=== PATIENT | female | born 1935 | race Two or more races ===

== ENCOUNTER 2020-11-01 03:42 | Inpatient (IN) | payer MEDICARE, OTHER ==
[~2020-11-01] VITALS: Ht 165.1 cm; Wt 63.5 kg
[2020-11-01] VITALS (10 sets, daily range): BP systolic 96–140; BP diastolic 31–72
[2020-11-01] MEDS ORDERED: FAMOTIDINE20 MG ORAL (03:47)
[2020-11-01] MEDS ORDERED: CRESTOR10 M2 ORAL (03:47)
[2020-11-01] MEDS ORDERED: NITRO0.4 SL (03:47)
[2020-11-01] MEDS ORDERED: ASPIRIN81 MG ORAL (03:47)
--- NOTE | 2020-11-01 03:55 | NUR ---
ED Nurse Note: Patient brought into ED by [facility] RA 13 for hypoglycemia. Per [facility], patient was found cool to touch, diarphoretic and unconscious at home. Patient initial blood sugar was 23 on scene and after being given D10W, her accu check showed blood sugar was 336. Upon ED arrival, patient is awake and alert, she is able to answer all questions but remains drowsy. She is breathing normal and unlabored. IV line on R hand initiated by [facility]. 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 Patient connected to environmental monitoring specialist. Safety measures in place.
--- NOTE | 2020-11-01 03:56 | NUR ---
ED Nurse Note: ERMD bedside. He is aware of patient BP and HR.
[2020-11-01] MEDS: D5NS 1,000 ML IV SCH ×2 (04:07→16:45)
--- NOTE | 2020-11-01 04:14 | Emergency Room Report ---
History of Present Illness General Chief Complaint: Abnormal Labs Source: Patient, Medical Record, EMS (Sivakumar Mata MD) Present Illness HPI 85-year-old female presents for low blood sugar. Brought in by EMS from home. Noted to have low O2 confused. Accu-Chek low. Given D50. Accu-Chek improved. Patient still appears somewhat confused. But mental status improved per EMS. No reported fevers or chills. No chest pain or shortness of breath. No other aggravating relieving factors. Denies any other associated symptoms (Sivakumar Mata MD) Allergies: Coded Allergies: No Known Allergies (Unverified , 11/02/20) COVID-19 Screening Contact w/high risk pt: No Experienced COVID-19 symptoms?: No COVID-19 Testing performed DIGITAL SALES DIRECTOR: No (Sivakumar Mata MD) Patient History Past Medical History: DM, HTN, renal disease, dialysis Past Surgical History: none Pertinent Family History: none Social History: Denies: smoking, alcohol use, drug use Now: No Immunizations: UTD Reviewed Nursing Documentation: PMH: Agreed; PSxH: Agreed (Sivakumar Mata MD) Nursing Documentation-PMH Past Medical History: No History, Except For Hx Hypertension: Yes Hx Diabetes: Yes Hx Dialysis: Yes - RENAL FAILURE (Sivakumar Mata MD) Review of Systems All Other Systems: negative except mentioned in HPI (Sivakumar Mata MD) Physical Exam Vital Signs Date Time Temp Pulse Resp B/P (MAP) Pulse Ox O2 Delivery O2 Flow Rate FiO2 11/01/20 03:43 98.6 60 20 112/43 (66) 99 Room Air Sp02 EP Interpretation: reviewed, normal General Appearance: no apparent distress, alert, GCS 15, non-toxic Head: normocephalic, atraumatic Eyes: bilateral eye normal inspection, bilateral eye PERRL ENT: hearing grossly normal, normal pharynx, no angioedema, normal voice Neck: full range of motion, supple/symm/no masses Respiratory: chest non-tender, lungs clear, normal breath sounds, speaking full sentences Cardiovascular #1: regular rate, rhythm, no edema Cardiovascular #2: 2+ carotid (R), 2+ carotid (L), 2+ radial (R), 2+ radial (L), 2+ dorsalis pedis (R), 2+ dorsalis pedis (L) Gastrointestinal: normal bowel sounds, non tender, soft, non-distended, no guarding, no rebound Rectal: deferred Genitourinary: normal inspection, no CVA tenderness Musculoskeletal: back normal, normal range of motion, gait/station normal, non- tender Neurologic: alert, motor strength/tone normal, oriented x3, sensory intact, responsive, speech normal Psychiatric: judgement/insight normal, memory normal, mood/affect normal, no suicidal/homicidal ideation Reflexes: 3+ bicep (R), 3+ bicep (L), 3+ tricep (R), 3+ tricep (L), 3+ knee (R), 3+ knee (L) Skin: other - see nursing notes Lymphatic: no adenopathy (Sivakumar Mata MD) Medical Decision Making Diagnostic Impression: Primary Impression: Hypoglycemia Additional Impressions: ESRD (end stage renal disease) on dialysis Acute encephalopathy NSTEMI (non-ST elevated myocardial infarction) ER Course Assumed care of the patient from the previous provider at approximately 0600. Please refer to initial note for full history and physical exam. Briefly, 85-year-old female history of ESRD presents for acute hypoglycemia improved after receiving glucose. Troponin elevated. Patient received aspirin. Sided effusion right-sided effusion. Possible underlying infiltrate patient received antibiotics. Accepted for admission to [facility]. Laboratory Tests Test 11/01/20 04:04 11/01/20 04:44 11/01/20 04:47 11/01/20 06:34 White Blood Count 11.0 K/UL (4.8-10.8) H Red Blood Count 2.46 M/UL (4.20-5.40) L Hemoglobin 7.5 G/DL (12.0-16.0) L Hematocrit 22.0 % (37.0-47.0) L Mean Corpuscular Volume 89 FL (80-99) Mean Corpuscular Hemoglobin 30.7 PG (27.0-31.0) Mean Corpuscular Hemoglobin Concent 34.3 G/DL (32.0-36.0) Red Cell Distribution Width 16.4 % (11.6-14.8) H Platelet Count 418 K/UL (150-450) Mean Platelet Volume 7.0 FL (6.5-10.1) Neutrophils (%) (Auto) % (45.0-75.0) Lymphocytes (%) (Auto) % (20.0-45.0) Monocytes (%) (Auto) % (1.0-10.0) Eosinophils (%) (Auto) % (0.0-3.0) Basophils (%) (Auto) % (0.0-2.0) Sodium Level 135 MMOL/L (136-145) L Potassium Level 3.9 MMOL/L (3.5-5.1) Chloride Level 96 MMOL/L (98-107) L Carbon Dioxide Level 31 MMOL/L (21-32) Anion Gap 8 mmol/L (5-15) Blood Urea Nitrogen 60 mg/dL (7-18) H Creatinine 6.6 MG/DL (0.55-1.30) H Estimated Glomerular Filtration Rate 6.0 mL/min (>60) Glucose Level 134 MG/DL (74-106) H Calcium Level 8.6 MG/DL (8.5-10.1) Total Bilirubin 0.3 MG/DL (0.2-1.0) Aspartate Amino Transferase (AST) 23 U/L (15-37) Alanine Aminotransferase (ALT) 12 U/L (12-78) Alkaline Phosphatase 183 U/L (46-116) H Troponin I 0.631 ng/mL (0.000-0.056) Pro-B-Type Natriuretic Peptide Pending Total Protein 6.9 G/DL (6.4-8.2) Albumin 2.2 G/DL (3.4-5.0) L Globulin 4.7 g/dL Albumin/Globulin Ratio 0.5 (1.0-2.7) L Urine Color Pale yellow Urine Appearance Cloudy Urine pH 5 (4.5-8.0) Urine Specific [place] 1.020 (1.005-1.035) Urine Protein 2+ (NEGATIVE) H Urine Glucose (UA) 3+ (NEGATIVE) H Urine Ketones Negative (NEGATIVE) Urine Blood 3+ (NEGATIVE) H Urine Nitrite Positive (NEGATIVE) H Urine Bilirubin Negative (NEGATIVE) Urine Urobilinogen Normal MG/DL (0.0-1.0) Urine Leukocyte Esterase 2+ (NEGATIVE) H Urine RBC 10-15 /HPF (0 - 2) H Urine WBC 15-20 /HPF (0 - 2) H Urine Squamous Epithelial Cells Many /LPF (NONE/OCC) H Urine Bacteria Many /HPF (NONE) H Prothrombin Time 13.0 SEC (9.30-11.50) H Prothrombin Time INR 1.2 (0.9-1.1) H Activated Partial Thromboplast Time 36 SEC (23-33) H Lactic Acid Level 0.60 mmol/L (0.4-2.0) (Carlos Velazco MD) ER Course Presents with acute encephalopathy secondary to hypoglycemia. She has been boarding in the ER for over 24 hours. Her hypoglycemia resolved. Her troponin is now positive. She has no chest pain. EKG without any ST elevation. Patient received aspirin and low dose Lovenox here. (Flo Yusuf MD) ER Course 11/02 - Accucheck = 53. On D5NS at 50 ml/hr. Also has h/o renal failure. Given orange juice and also switched to D10W at 50 ml/hr. 700 Final accucheck on admission and D10W = 103. (Tab Cunha MD) EKG Diagnostic Results Troponin ordered: Yes Rate: bradycardiac Rhythm: NSR ST Segments: other - RBBB (Sivakumar Mata MD) Rhythm Strip Diag. Results EP Interpretation: yes Rhythm: no PVC's, no ectopy (Sivakumar Mata MD) EP Interpretation: yes Rhythm: NSR, no PVC's, no ectopy (Tab Cunha MD) CT/MRI/US Diagnostic Results CT/MRI/US Diagnostic Results : Impression IMPRESSION: No acute intracranial hemorrhage, midline shift, or mass effect. Dictated By: Gabe Mendoza M.D. Electronically Signed By:Gabe Mendoza M.D. Signed Date/Time 11/01/20 0555 (Carlos Velazco MD) Last Vital Signs Date Time Temp Pulse Resp B/P (MAP) Pulse Ox O2 Delivery O2 Flow Rate FiO2 11/01/20 04:09 49 15 Room Air 11/01/20 03:55 98.6 96/31 97 (Sivakumar Mata MD) Status: improved (Flo Yusuf MD) Last Vital Signs Date Time Temp Pulse Resp B/P (MAP) Pulse Ox O2 Delivery O2 Flow Rate FiO2 11/02/20 16:00 97.7 75 20 141/51 (81) 97 11/02/20 09:30 Nasal Cannula 2.0 Status: improved (Tab Cunha MD) Disposition: ADMITTED INPATIENT Condition: Serious Referrals: NOT CHOSEN IPA/,REFERRING (PCP) Sivakumar Mata MD Nov 01, 2020 04:14 Carlos Velazco MD Nov 01, 2020 08:06 Flo Yusuf MD Nov 02, 2020 05:43 Tab Cunha MD Nov 02, 2020 07:04
[2020-11-01 04:20] LABS: HEMOGLOBIN 7.5 G/DL (12.0-16.0); MEAN CORPUSCULAR VOLUME 89 FL (80-99); PLATELET COUNT 418 K/UL (150-450); RED BLOOD COUNT 2.46 M/UL (4.20-5.40); RED CELL DISTRIBUTION WIDTH 16.4 % (11.6-14.8)
[2020-11-01 04:27] LABS: CALCIUM 8.6 MG/DL (8.5-10.1); CREATININE 6.6 MG/DL (0.55-1.30); POTASSIUM 3.9 MMOL/L (3.5-5.1)
--- NOTE | 2020-11-01 04:27 | NUR ---
ED Nurse Note: urine collected and sent to lab
--- NOTE | 2020-11-01 04:30 | NUR ---
ED Nurse Note: technician assistant at bedside performing CXR.
[2020-11-01 04:33] LABS: ALBUMIN 2.2 G/DL (3.4-5.0); ALBUMIN/GLOBULIN RATIO 0.5 (1.0-2.7); BILIRUBIN,TOTAL 0.3 MG/DL (0.2-1.0)
--- NOTE | 2020-11-01 04:50 | NUR ---
ED Nurse Note: Patient remains drowsy but is easily arousable and will answer questions.
[2020-11-01 04:51] LABS: APPEARANCE,URINE CLOUDY; BILIRUBIN, URINE NEGATIVE (NEGATIVE); GLUCOSE, URINE (UA) 3+ (NEGATIVE); KETONES,URINE NEGATIVE (NEGATIVE); LEUKOCYTE ESTERASE ,URINE 2+ (NEGATIVE); NITRITE,URINE POSITIVE (NEGATIVE); PH,URINE 5 (4.5-8.0); PROTEIN,URINE 2+ (NEGATIVE); UROBILINOGEN,URINE NORMAL MG/DL (0.0-1.0)
[2020-11-01 04:55] LABS: COLOR,URINE PALE YELLOW
--- NOTE | 2020-11-01 05:02 | Diagnostic Imaging Report ---
EXAM: XR Chest, 1 View CLINICAL HISTORY: DIZZY TECHNIQUE: Frontal view of the chest. COMPARISON: No relevant prior studies available. FINDINGS/IMPRESSION: Moderate right pleural effusion with moderate vascular congestion, which asymmetrically involves the right lung. Underlying infiltrate not excluded. Follow 2 view chest radiograph recommended. No pneumothorax. Trace left pleural effusion. Severe cardiomegaly. Calcified aorta. Calcified tracheobronchial tree.
--- NOTE | 2020-11-01 05:56 | Diagnostic Imaging Report ---
EXAM: CT Head Without Intravenous Contrast CLINICAL HISTORY: AMS TECHNIQUE: Axial computed tomography images of the head/brain without intravenous contrast. CTDI is 53.40 mGy and DLP is 1072.20 mGy-cm. One or more of the following dose reduction techniques were used: automated exposure control, adjustment of the mA and/or kV according to patient size, use of iterative reconstruction technique. COMPARISON: No relevant prior studies available. FINDINGS: No acute intracranial hemorrhage. No midline shift or mass effect. The territorial lemos-white matter differentiation is maintained throughout. Age-related cerebral volume loss. Periventricular and subcortical white matter hypoattenuation, consistent with chronic microangiopathy. The visualized orbits appear grossly unremarkable. The calvarium is intact. The visualized paranasal sinuses and mastoid air cells are grossly clear. IMPRESSION: No acute intracranial hemorrhage, midline shift, or mass effect.
--- NOTE | 2020-11-01 06:22 | NUR ---
ED Nurse Note: Patient is awake and alert, see vital signs flow sheet. No acute distress at this time. ERMD is aware of patient HR, no change in condition.
[2020-11-01 06:30] LABS: INR 1.2 (0.9-1.1)
--- NOTE | 2020-11-01 07:14 | NUR ---
HAND-OFF: Report given to ARTURO Kerns.
--- NOTE | 2020-11-01 07:30 | NUR ---
ED Nurse Note: received report from saba portillo. patient is resting comfortably, nad noted, bs 103, hr 50, bp 101/64, other vss, levaquin 750mg running at 100ml/hr and d5ns running at 100ml/hr. swabbed for mrsa/cre/vre and sent to lab. awaiting blood transfusion.
--- NOTE | 2020-11-01 07:57 | NUR ---
ED Nurse Note: started blood transfusion 1 unit per md order. temperature 91.2 rectal, initiated barbara hugger. hr 51, other vss. will monitor closely for adverse reaction.
[2020-11-01] MEDS ORDERED: cefTRIAXone 1 GM in NS 55 ML IVPB SCH (09:00)
--- NOTE | 2020-11-01 09:14 | Consultation ---
History of Present Illness General Chief Complaint: Abnormal Labs Reason for Consultation: ESRD on HD Present Illness HPI 85F with PMhx of ESRD and Insulin dependent DM2 was biba after being found unresponsive. Per EMS report and history of patient - she was found in the field cool, diaphoretic and with a BG of 23 in the field where she was given D10W. Following her accucheck in the field was found to be 336. At bedside patient is alert following glucose gtt. She states that she had dialysis on Sunday and was feeling weak after dialysis. On Sunday all day she rested in bed and had not eaten very much. She says that she took the assistance of her family to administer insulin and administered 10U of long acting insulin. Unclear of what dose of insulin patient takes at home. Allergies: Coded Allergies: No Known Allergies (Unverified , 11/02/20) Medication History Scheduled Aspirin* (Aspirin*), Unknown Dose ORAL DAILY, (Reported) Famotidine* (Pepcid 20mg tablet*), 20 MG ORAL DAILY, (Reported) Rosuvastatin Calcium* (Crestor*), Unknown Dose ORAL DAILY, (Reported) Scheduled PRN Nitroglycerin 0.4MG table* (Nitroglycerin*), 0.4 MG SL .Q5MIN X 3 DOSES PRN for CHEST PAIN, (Reported) Patient History Healthcare decision maker Resuscitation status Advanced Directive on File Review of Systems All Other Systems: negative except mentioned in HPI Physical Exam General Appearance: no apparent distress Lines, tubes and drains: peripheral HEENT: normocephalic Neck: non-tender, normal alignment Respiratory/Chest: chest wall non-tender, lungs clear Cardiovascular/Chest: normal peripheral pulses, normal rate, regular rhythm Abdomen: normal bowel sounds, non tender Extremities: normal range of motion, non-tender Neurologic: alert, oriented x 3 Last 24 Hour Vital Signs Date Time Temp Pulse Resp B/P (MAP) Pulse Ox O2 Delivery O2 Flow Rate FiO2 11/01/20 08:38 92.0 50 17 118/50 97 Room Air 11/01/20 08:12 92.0 50 17 11/01/20 07:57 91.2 51 18 11/01/20 06:22 98.8 59 16 98/55 97 Room Air 11/01/20 04:30 98.6 46 16 101/42 98 Room Air 11/01/20 04:09 49 15 Room Air 11/01/20 03:55 98.6 49 15 96/31 97 Room Air 11/01/20 03:43 98.6 60 20 112/43 (66) 99 Room Air Laboratory Tests Test 11/01/20 04:04 11/01/20 04:44 11/01/20 04:47 11/01/20 06:34 White Blood Count 11.0 K/UL (4.8-10.8) H Red Blood Count 2.46 M/UL (4.20-5.40) L Hemoglobin 7.5 G/DL (12.0-16.0) L Hematocrit 22.0 % (37.0-47.0) L Mean Corpuscular Volume 89 FL (80-99) Mean Corpuscular Hemoglobin 30.7 PG (27.0-31.0) Mean Corpuscular Hemoglobin Concent 34.3 G/DL (32.0-36.0) Red Cell Distribution Width 16.4 % (11.6-14.8) H Platelet Count 418 K/UL (150-450) Mean Platelet Volume 7.0 FL (6.5-10.1) Neutrophils (%) (Auto) % (45.0-75.0) Lymphocytes (%) (Auto) % (20.0-45.0) Monocytes (%) (Auto) % (1.0-10.0) Eosinophils (%) (Auto) % (0.0-3.0) Basophils (%) (Auto) % (0.0-2.0) Sodium Level 135 MMOL/L (136-145) L Potassium Level 3.9 MMOL/L (3.5-5.1) Chloride Level 96 MMOL/L (98-107) L Carbon Dioxide Level 31 MMOL/L (21-32) Anion Gap 8 mmol/L (5-15) Blood Urea Nitrogen 60 mg/dL (7-18) H Creatinine 6.6 MG/DL (0.55-1.30) H Estimat Glomerular Filtration Rate 6.0 mL/min (>60) Glucose Level 134 MG/DL (74-106) H Calcium Level 8.6 MG/DL (8.5-10.1) Total Bilirubin 0.3 MG/DL (0.2-1.0) Aspartate Amino Transf (AST/SGOT) 23 U/L (15-37) Alanine Aminotransferase (ALT/SGPT) 12 U/L (12-78) Alkaline Phosphatase 183 U/L (46-116) H Troponin I 0.631 ng/mL (0.000-0.056) Pro-B-Type Natriuretic Peptide Pending Total Protein 6.9 G/DL (6.4-8.2) Albumin 2.2 G/DL (3.4-5.0) L Globulin 4.7 g/dL Albumin/Globulin Ratio 0.5 (1.0-2.7) L Urine Color Pale yellow Urine Appearance Cloudy Urine pH 5 (4.5-8.0) Urine Specific [place] 1.020 (1.005-1.035) Urine Protein 2+ (NEGATIVE) H Urine Glucose (UA) 3+ (NEGATIVE) H Urine Ketones Negative (NEGATIVE) Urine Blood 3+ (NEGATIVE) H Urine Nitrite Positive (NEGATIVE) H Urine Bilirubin Negative (NEGATIVE) Urine Urobilinogen Normal MG/DL (0.0-1.0) Urine Leukocyte Esterase 2+ (NEGATIVE) H Urine RBC 10-15 /HPF (0 - 2) H Urine WBC 15-20 /HPF (0 - 2) H Urine Squamous Epithelial Cells Many /LPF (NONE/OCC) H Urine Bacteria Many /HPF (NONE) H Prothrombin Time 13.0 SEC (9.30-11.50) H Prothromb Time International Ratio 1.2 (0.9-1.1) H Activated Partial Thromboplast Time 36 SEC (23-33) H Lactic Acid Level 0.60 mmol/L (0.4-2.0) Microbiology Date/Time Source Procedure Growth Status 11/01/20 07:12 Rectum Received Height (Feet): 5 Height (Inches): 5.00 Weight (Pounds): 140 Medications Current Medications Medications (Trade) Dose Ordered Sig/Scooter Route PRN Reason Start Time Stop Time Status Last Admin Dose Admin Ceftriaxone Sodium 1 gm/ Sodium Chloride 55 ml @ 110 mls/hr DAILY IVPB 11/01/20 09:00 11/08/20 08:59 Dextrose (Dextrose 50%) 25 ml Q30M PRN IV Hypoglycemia 11/01/20 07:00 01/30/21 06:59 Dextrose (Dextrose 50%) 50 ml Q30M PRN IV Hypoglycemia 11/01/20 07:00 01/30/21 06:59 Dextrose/Sodium Chloride 1,000 ml @ 100 mls/hr Q10H IV 11/01/20 04:00 12/01/20 03:59 11/01/20 04:07 Insulin Aspart (NovoLOG) BEFORE MEALS AND HS SUBQ 11/01/20 11:30 01/30/21 11:29 Assessment/Plan Diagnosis [place] I: #ESRD on HD- TTHS- #Hypoglycemia #DM #Anemia #HTN HLD - HD tomorrow - continue D5 drip - monitor for volume overload - check iron panel - check ferritin - check PTH - vitamin D - monitor hemoglobin - amlodipine 5mg daily time spent 70 min Belinda Fraire M.D. Nov 01, 2020 09:14
--- NOTE | 2020-11-01 09:30 | NUR ---
ED Nurse Note: transfused 1 unit of prbc per md order. pt tolerated well, no adverse reaction noted.
[2020-11-01] MEDS: NovoLOG Insulin Flexpen SUBQ SCH ×3 (11:04→20:52)
--- NOTE | 2020-11-01 11:12 | NUR ---
ED Nurse Note: received novolog from pharmacy but did not administer due to bs being within normal range. bs 112.
--- NOTE | 2020-11-01 13:06 | NUR ---
ED Nurse Note: lunch tray was provided
--- NOTE | 2020-11-01 13:46 | NUR ---
ED Nurse Note: bs 88. temp 98.2 rectal.
--- NOTE | 2020-11-01 17:58 | History and Physical ---
History of Present Illness General Date patient seen: Nov 01, 2020 Time patient seen: 09:45 Reason for Hospitalization: Abnormal Labs Present Illness Allergies: Coded Allergies: UNABLE TO ASSESS (Unverified , 11/01/20) COVID-19 Screening Contact w/high risk pt: No Experienced COVID-19 symptoms?: No Medication History Scheduled Aspirin* (Aspirin*), Unknown Dose ORAL DAILY, (Reported) Famotidine* (Pepcid 20mg tablet*), 20 MG ORAL DAILY, (Reported) Rosuvastatin Calcium* (Crestor*), Unknown Dose ORAL DAILY, (Reported) Scheduled PRN Nitroglycerin 0.4MG table* (Nitroglycerin*), 0.4 MG SL .Q5MIN X 3 DOSES PRN for CHEST PAIN, (Reported) Patient History History Provided By: Patient, EMS Healthcare decision maker Resuscitation status Advanced Directive on File Patient History Narrative 85F with PMhx of ESRD and Insulin dependent DM2 was biba after being found unresponsive. Per EMS report and history of patient - she was found in the field cool, diaphoretic and with a BG of 23 in the field where she was given D10W. Following her accucheck in the field was found to be 336. At bedside patient is alert following glucose gtt. She states that she had dialysis on Sunday and was feeling weak after dialysis. On Sunday all day she rested in bed and had not eaten very much. She says that she took the assistance of her family to administer insulin and administered 10U of long acting insulin. Unclear of what dose of insulin patient takes at home. She lives with her sister (Puja) - attempted to called 2x however unable to leave voicemail as line is busy. Review of Systems Constitutional: Denies: no symptoms, see HPI, chills, sweats, fever, malaise, weakness, other Eye: Denies: no symptoms, see HPI, eye pain, blurred vision, tearing, double vision, nose pain, nose congestion, acuity changes, discharge, other ENT: Denies: no symptoms, see HPI, ear pain, ear discharge, nose pain, nose congestion, throat pain, throat swelling, mouth pain, hearing loss, nasal discharge, other Respiratory: Denies: no symptoms, see HPI, cough, orthopnea, shortness of breath, stridor, wheezing, LOPEZ, sputum, other Cardiovascular: Denies: no symptoms, see HPI, chest pain, edema, palpitations, syncope, PND, other Gastrointestinal: Denies: no symptoms, see HPI, abdominal pain, constipation, diarrhea, nausea, vomiting, melena, hematemesis, other Genitourinary: Denies: no symptoms, see HPI, discharge, dysuria, frequency, hematuria, pain, retention, incontinence, urgency, vag bleed/dc, other Musculoskeletal: Denies: no symptoms, see HPI, back pain, gout, joint pain, joint swelling, muscle pain, muscle stiffness, other Skin: Denies: no symptoms, see HPI, rash, change in color, change in hair/nails, dryness, lesions, other Psychiatric: Denies: no symptoms, see HPI, prior hx, anxiety, depressed feelings, emotional problems, SI, HI, hallucinations, other Neurological: Denies: no symptoms, see HPI, headache, numbness, paresthesia, seizure, tingling, tremors, focal weakness, syncope, dizziness, other Endocrine: Denies: no symptoms, see HPI, excessive sweating, flushing, intolerance to temperature, increased thirst, increased urine, unexplained weight loss, other Hematologic/Lymphatic: Denies: no symptoms, see HPI, anemia, blood clots, easy bleeding, easy bruising, swollen glands, diathesis, other Physical Exam General Appearance: no apparent distress, alert HEENT: normocephalic, atraumatic Neck: supple Respiratory/Chest: normal breath sounds, no respiratory distress Cardiovascular/Chest: normal rate, regular rhythm Abdomen: non tender, soft Extremities: normal range of motion Skin Exam: warm/dry Neurologic: respiratory assistant II-XII grossly normal, alert Last 24 Hour Vital Signs Date Time Temp Pulse Resp B/P (MAP) Pulse Ox O2 Delivery O2 Flow Rate FiO2 11/01/20 13:47 98.2 62 18 128/52 98 Room Air 11/01/20 10:51 92.6 62 18 122/39 98 Room Air 11/01/20 09:30 92.5 55 18 11/01/20 08:38 92.0 50 17 118/50 97 Room Air 11/01/20 08:12 92.0 50 17 11/01/20 07:57 91.2 51 18 11/01/20 06:22 98.8 59 16 98/55 97 Room Air 11/01/20 04:30 98.6 46 16 101/42 98 Room Air 11/01/20 04:09 49 15 Room Air 11/01/20 03:55 98.6 49 15 96/31 97 Room Air 11/01/20 03:43 98.6 60 20 112/43 (66) 99 Room Air Laboratory Tests Test 11/01/20 04:04 11/01/20 04:44 11/01/20 04:47 11/01/20 06:34 White Blood Count 11.0 K/UL (4.8-10.8) H Red Blood Count 2.46 M/UL (4.20-5.40) L Hemoglobin 7.5 G/DL (12.0-16.0) L Hematocrit 22.0 % (37.0-47.0) L Mean Corpuscular Volume 89 FL (80-99) Mean Corpuscular Hemoglobin 30.7 PG (27.0-31.0) Mean Corpuscular Hemoglobin Concent 34.3 G/DL (32.0-36.0) Red Cell Distribution Width 16.4 % (11.6-14.8) H Platelet Count 418 K/UL (150-450) Mean Platelet Volume 7.0 FL (6.5-10.1) Neutrophils (%) (Auto) % (45.0-75.0) Lymphocytes (%) (Auto) % (20.0-45.0) Monocytes (%) (Auto) % (1.0-10.0) Eosinophils (%) (Auto) % (0.0-3.0) Basophils (%) (Auto) % (0.0-2.0) Sodium Level 135 MMOL/L (136-145) L Potassium Level 3.9 MMOL/L (3.5-5.1) Chloride Level 96 MMOL/L (98-107) L Carbon Dioxide Level 31 MMOL/L (21-32) Anion Gap 8 mmol/L (5-15) Blood Urea Nitrogen 60 mg/dL (7-18) H Creatinine 6.6 MG/DL (0.55-1.30) H Estimat Glomerular Filtration Rate 6.0 mL/min (>60) Glucose Level 134 MG/DL (74-106) H Calcium Level 8.6 MG/DL (8.5-10.1) Total Bilirubin 0.3 MG/DL (0.2-1.0) Aspartate Amino Transf (AST/SGOT) 23 U/L (15-37) Alanine Aminotransferase (ALT/SGPT) 12 U/L (12-78) Alkaline Phosphatase 183 U/L (46-116) H Troponin I 0.631 ng/mL (0.000-0.056) Pro-B-Type Natriuretic Peptide Pending Total Protein 6.9 G/DL (6.4-8.2) Albumin 2.2 G/DL (3.4-5.0) L Globulin 4.7 g/dL Albumin/Globulin Ratio 0.5 (1.0-2.7) L Urine Color Pale yellow Urine Appearance Cloudy Urine pH 5 (4.5-8.0) Urine Specific [place] 1.020 (1.005-1.035) Urine Protein 2+ (NEGATIVE) H Urine Glucose (UA) 3+ (NEGATIVE) H Urine Ketones Negative (NEGATIVE) Urine Blood 3+ (NEGATIVE) H Urine Nitrite Positive (NEGATIVE) H Urine Bilirubin Negative (NEGATIVE) Urine Urobilinogen Normal MG/DL (0.0-1.0) Urine Leukocyte Esterase 2+ (NEGATIVE) H Urine RBC 10-15 /HPF (0 - 2) H Urine WBC 15-20 /HPF (0 - 2) H Urine Squamous Epithelial Cells Many /LPF (NONE/OCC) H Urine Bacteria Many /HPF (NONE) H Prothrombin Time 13.0 SEC (9.30-11.50) H Prothromb Time International Ratio 1.2 (0.9-1.1) H Activated Partial Thromboplast Time 36 SEC (23-33) H Lactic Acid Level 0.60 mmol/L (0.4-2.0) Test 11/01/20 11:03 11/01/20 13:45 POC Whole Blood Glucose 112 MG/DL (74-106) H 88 MG/DL (74-106) Microbiology Date/Time Source Procedure Growth Status 11/01/20 07:12 Rectum Received Height (Feet): 5 Height (Inches): 5.00 Weight (Pounds): 140 Medications Current Medications Medications (Trade) Dose Ordered Sig/Scooter Route PRN Reason Start Time Stop Time Status Last Admin Dose Admin Ceftriaxone Sodium 1 gm/ Sodium Chloride 55 ml @ 110 mls/hr DAILY IVPB 11/01/20 09:00 12/21/20 08:59 11/01/20 09:34 Dextrose (Dextrose 50%) 25 ml Q30M PRN IV Hypoglycemia 11/01/20 07:00 01/30/21 06:59 Dextrose (Dextrose 50%) 50 ml Q30M PRN IV Hypoglycemia 11/01/20 07:00 01/30/21 06:59 Dextrose/Sodium Chloride 1,000 ml @ 100 mls/hr Q10H IV 11/01/20 04:00 12/01/20 03:59 11/01/20 16:45 Insulin Aspart (NovoLOG) BEFORE MEALS AND HS SUBQ 11/01/20 11:30 01/30/21 11:29 Assessment/Plan Status: stable Diagnosis [place] I: #Metabolic Encephalopathy #Hypoglycemia #Hypothermia Patient presented following BG 20s in the field. Now alert and oriented, though unable to state correct insulin dose. - Continued rewarming - Temp 98.2 - CT Brain with no acute intracranial hemorrhage, or midline shift - IVF with D5W to keep BG 150-200 - Continue re-orienting techniques - Repeat cbc, bmp, trop, tsh #Tropinemia - Aspirin in the ED, no active chest pain - EKG - Sinus bradycardia with RBBB - HR improving with rewarming - Repeat troponin pending - BNP pending #Myalgias #UTI #Concern for possible aspiration pna vs. pleural effusion - Correlate w/Repeat CXR 2 in AM - BC x2 - UC with pyuria - Covid pending - Abx - Azithromycin and Zosyn, s/p ceftriaxone in ED - Pulm consult - ID consult - Patient is currently on RA #Insulin Dependent T2DM - Hold insulin for now - ISS - Will need diabetic education #ESRD (//sun) - Nephrology consulted, appreciate recs #HLD - continue crestor Diet - Carb consistent Heparin sq Time spent is 75 minutes with approximately 35 minutes with counseling and care coordination. D/w Consultants and nursing staff. Time of of note does not reflect time of encounter. Trinidad Bella M.D. Nov 01, 2020 17:58
--- NOTE | 2020-11-01 19:08 | NUR ---
HAND-OFF: Report given to saba cervantes.
--- NOTE | 2020-11-01 19:10 | NUR ---
ED Nurse Note: pt aao x 4, resting in bed, VSS no ss of distress noted. Pt able to stand and ambulate short distances with assistance. pt assisted to bedside commode with assistance. will continue monitor.
--- NOTE | 2020-11-01 20:40 | NUR ---
ED Nurse Note: pt bs recheck 66, ermd informed. pt given PO orange juice. awaiting bs recheck.
--- NOTE | 2020-11-01 21:15 | NUR ---
ED Nurse Note: RODRIGO recheck 86. ERMD informed. will continue to monitor.
[2020-11-01] MEDS ORDERED: Piperacillin/Tazobactam 3.375 GM in NS 110 ML IVPB SCH (22:00)
--- NOTE | 2020-11-01 22:13 | General Progress Note ---
Advance Care Planning Advance Care Planning Advance Care Planning [facility] An independent Hospitalist group, where every patient is our [facility] Internal Medicine Hospitalist Advanced Care Planning Note Please contact us at Date of Discussion: A [id number] discussion with the patient regarding the patient's advanced care planning took place during this hospitalization on the above date. The discussion included the explanation and discussion of advance directives and associated forms/documents, as well as the patient's current code status. We also discussed at length the patient's medical conditions (both acute and chroni c), general prognosis, treatment options, and goals of care. The following summarizes the discussion: Patient states that she would want CPR, Electric shocks, and intubation with mechanical ventilation. Advance Care Planning/Goals of Care: - Will attempt to fill out an AD and/or POLST with the patient prior to discharge, if not already completed - Continue current evaluation and management of any acute and chronic medical issues - Will continue to support the patient/family - Will continue to discuss both short- and long-term goals of care DPOA-HC/Surrogate Decision Maker: Cecy (cousin) [phone] Code Status: Full Code Advanced Care Planning Forms/Documents Completed: Deferred until later encounter/visit A total of 18 minutes was spent on this discussion, including counseling, answering questions, and completing, if any, pertinent advanced care planning forms/documents. Time of note may not reflect time of encounter. Trinidad Bella M.D. Nov 01, 2020 22:13
--- NOTE | 2020-11-01 23:34 | NUR ---
ED Nurse Note: pt resting in bed, vss no ss of distress noted. will continue to monitor.
[2020-11-02] VITALS (8 sets, daily range): BP systolic 136–172; BP diastolic 36–67
[2020-11-02 00:06] LABS: BASOPHILS % (AUTO) 1.5 % (0.0-2.0); EOSINOPHILS % (AUTO) 1.2 % (0.0-3.0); HEMATOCRIT 25.3 % (37.0-47.0); HEMOGLOBIN 8.6 G/DL (12.0-16.0); LYMPHOCYTES % (AUTO) 8.5 % (20.0-45.0); MEAN CORPUSCULAR VOLUME 89 FL (80-99); NEUTROPHILS % (AUTO) 79.9 % (45.0-75.0); PLATELET COUNT 417 K/UL (150-450); RED BLOOD COUNT 2.83 M/UL (4.20-5.40); RED CELL DISTRIBUTION WIDTH 16.7 % (11.6-14.8); WHITE BLOOD COUNT 9.2 K/UL (4.8-10.8)
[2020-11-02 00:20] LABS: CALCIUM 8.3 MG/DL (8.5-10.1); CREATININE 7.3 MG/DL (0.55-1.30); POTASSIUM 4.7 MMOL/L (3.5-5.1)
--- NOTE | 2020-11-02 02:10 | NUR ---
ED Nurse Note: BS recheck 156; ermd notified. IV fluids held at this time. will continue to monitor.
[2020-11-02] MEDS ORDERED: Enoxaparin 60mg Inj SUBQ ONE (02:30)
--- NOTE | 2020-11-02 04:40 | NUR ---
ED Nurse Note: pt resting in bed, vss no ss of distress noted. will continue to monitor.
--- NOTE | 2020-11-02 05:00 | NUR ---
ED Nurse Note: AM labs drawn and sent to lab. BS recheck: 101, ermd notified. will continue to monitor.
[2020-11-02] MEDS: D5NS 1,000 ML IV SCH (05:36)
--- NOTE | 2020-11-02 05:36 | NUR ---
ED Nurse Note: iv fluids initiated, pt tolerated well no ss of distress noted. will continue to monitor.
[2020-11-02 05:40] LABS: BASOPHILS % (AUTO) 0.9 % (0.0-2.0); EOSINOPHILS % (AUTO) 0.4 % (0.0-3.0); HEMATOCRIT 28.6 % (37.0-47.0); HEMOGLOBIN 9.5 G/DL (12.0-16.0); LYMPHOCYTES % (AUTO) 8.1 % (20.0-45.0); MEAN CORPUSCULAR VOLUME 91 FL (80-99); MONOCYTES % (AUTO) 9.5 % (1.0-10.0); NEUTROPHILS % (AUTO) 81.2 % (45.0-75.0); PLATELET COUNT 444 K/UL (150-450); RED BLOOD COUNT 3.15 M/UL (4.20-5.40); RED CELL DISTRIBUTION WIDTH 15.4 % (11.6-14.8); WHITE BLOOD COUNT 10.2 K/UL (4.8-10.8)
[2020-11-02 06:10] LABS: CALCIUM 8.4 MG/DL (8.5-10.1); CREATININE 7.7 MG/DL (0.55-1.30); POTASSIUM 4.8 MMOL/L (3.5-5.1)
[2020-11-02 06:26] LABS: FERRITIN > 2000 NG/ML (8-388); PHOSPHORUS 3.9 MG/DL (2.5-4.9)
[2020-11-02] MEDS: NovoLOG Insulin Flexpen SUBQ SCH ×4 (06:30→21:39)
[2020-11-02 06:38] LABS: % IRON SATURATION 21 % (15-50); IRON 37 ug/dL (50-175); TOTAL IRON BINDING CAPACITY 175 ug/dL (250-450)
--- NOTE | 2020-11-02 06:50 | NUR ---
ED Nurse Note: pt BS recheck: 56. medication held, ermd notified. awaiting further orders. pt given 8mls of orange juice PO, tolerated well. no ss of distress noted. will continue to monitor.
[2020-11-02] MEDS ORDERED: Dextrose 10% 1,000 ML IV SCH (07:00)
--- NOTE | 2020-11-02 07:25 | NUR ---
ED Nurse Note: Patient taken down for CXR via gurney in stable condition.
--- NOTE | 2020-11-02 07:26 | NUR ---
HAND-OFF: Report given to saba felipe.
--- NOTE | 2020-11-02 08:00 | NUR ---
ED Nurse Note: Patient came back from CT in stable condition.
--- NOTE | 2020-11-02 08:48 | NUR ---
ED Nurse Note: Reporty given to Christiane MORRIS of telemetry unit.
--- NOTE | 2020-11-02 09:00 | NUR ---
ED Nurse Note: Patient transferred to telemetry unit with all her belongings including insulin pen. Pt with ongoing drip of D10 running at 50ml per hour and endorsed to receiving RN Christiane MORRIS.
[2020-11-02] MEDS: Azithromycin 250mg tab ORAL SCH (09:51)
--- NOTE | 2020-11-02 11:55 | Infectious Diseases Prog Note ---
Assessment/Plan Assessment/Plan Full consult dictated: A) 1) uti 2) possible pna 3) rule out covid P) 1) zosyn 2) f/u on cultures, covid testing, labs and chest x-ray 3) thank you Subjective Allergies: Coded Allergies: UNABLE TO ASSESS (Unverified , 11/01/20) Objective Last 24 Hour Vital Signs Date Time Temp Pulse Resp B/P (MAP) Pulse Ox O2 Delivery O2 Flow Rate FiO2 11/02/20 09:51 67 172/61 11/02/20 09:39 68 11/02/20 09:15 98.1 75 20 172/61 (98) 98 11/02/20 09:00 98.2 82 17 142/65 100 Nasal Cannula 2.0 11/02/20 08:08 98.5 75 20 150/47 98 Nasal Cannula 2.0 11/02/20 05:00 98.2 73 16 148/51 98 Nasal Cannula 2.0 11/02/20 03:30 98.2 66 16 145/39 98 Nasal Cannula 2.0 11/02/20 01:30 98.2 74 16 138/36 98 Nasal Cannula 2.0 11/01/20 23:26 98.2 64 16 140/68 98 Nasal Cannula 2.0 11/01/20 21:30 98.2 68 18 137/72 98 Room Air 11/01/20 19:20 98.2 72 16 137/64 98 Nasal Cannula 2.0 11/01/20 17:11 98.2 65 18 127/52 98 Room Air 11/01/20 13:47 98.2 62 18 128/52 98 Room Air Height (Feet): 5 Height (Inches): 5.00 Weight (Pounds): 140 Microbiology Date/Time Source Procedure Growth Status 11/01/20 07:12 Rectum Received 11/01/20 04:44 Urine,Clean Catch Urine Culture - Preliminary NO GROWTH Resulted Laboratory Tests Test 11/01/20 13:45 11/01/20 19:01 11/02/20 00:01 11/02/20 05:00 POC Whole Blood Glucose 88 MG/DL (74-106) 87 MG/DL (74-106) White Blood Count 9.2 K/UL (4.8-10.8) 10.2 K/UL (4.8-10.8) Red Blood Count 2.83 M/UL (4.20-5.40) L 3.15 M/UL (4.20-5.40) L Hemoglobin 8.6 G/DL (12.0-16.0) L 9.5 G/DL (12.0-16.0) L Hematocrit 25.3 % (37.0-47.0) L 28.6 % (37.0-47.0) L Mean Corpuscular Volume 89 FL (80-99) 91 FL (80-99) Mean Corpuscular Hemoglobin 30.4 PG (27.0-31.0) 30.3 PG (27.0-31.0) Mean Corpuscular Hemoglobin Concent 34.0 G/DL (32.0-36.0) 33.3 G/DL (32.0-36.0) Red Cell Distribution Width 16.7 % (11.6-14.8) H 15.4 % (11.6-14.8) H Platelet Count 417 K/UL (150-450) 444 K/UL (150-450) Mean Platelet Volume 6.8 FL (6.5-10.1) 6.6 FL (6.5-10.1) Neutrophils (%) (Auto) 79.9 % (45.0-75.0) H 81.2 % (45.0-75.0) H Lymphocytes (%) (Auto) 8.5 % (20.0-45.0) L 8.1 % (20.0-45.0) L Monocytes (%) (Auto) 9.0 % (1.0-10.0) 9.5 % (1.0-10.0) Eosinophils (%) (Auto) 1.2 % (0.0-3.0) 0.4 % (0.0-3.0) Basophils (%) (Auto) 1.5 % (0.0-2.0) 0.9 % (0.0-2.0) Sodium Level 137 MMOL/L (136-145) Potassium Level 4.8 MMOL/L (3.5-5.1) Chloride Level 98 MMOL/L (98-107) Carbon Dioxide Level 27 MMOL/L (21-32) Anion Gap 12 mmol/L (5-15) Blood Urea Nitrogen 74 mg/dL (7-18) H Creatinine 7.7 MG/DL (0.55-1.30) H Estimat Glomerular Filtration Rate 5.0 mL/min (>60) Glucose Level 75 MG/DL (74-106) Calcium Level 8.4 MG/DL (8.5-10.1) L Calcium (Send out) Pending Phosphorus Level 3.9 MG/DL (2.5-4.9) Magnesium Level 2.1 MG/DL (1.8-2.4) Iron Level 37 ug/dL (50-175) L Total Iron Binding Capacity 175 ug/dL (250-450) L Percent Iron Saturation 21 % (15-50) Unsaturated Iron Binding 138 ug/dL (112-346) Ferritin > 2000 NG/ML (8-388) H Troponin I 0.322 ng/mL (0.000-0.056) Vitamin D 25-Hydroxy Pending 25-Hydroxy Vitamin D2 Pending 25-Hydroxy Vitamin D3 Pending Parathyroid Hormone (Intact) Pending Test 11/02/20 08:07 POC Whole Blood Glucose 102 MG/DL (74-106) Current Medications Medications (Trade) Dose Ordered Sig/Scooter Route PRN Reason Start Time Stop Time Status Last Admin Dose Admin Amlodipine Besylate (Norvasc) 5 mg DAILY ORAL 11/02/20 09:00 12/02/20 08:59 11/02/20 09:51 Azithromycin (Zithromax) 500 mg DAILY ORAL 11/02/20 09:00 11/07/20 10:50 11/02/20 09:51 Dextrose 1,000 ml @ 50 mls/hr Q20H IV 11/02/20 07:00 12/02/20 06:59 11/02/20 08:01 Dextrose (Dextrose 50%) 25 ml Q30M PRN IV Hypoglycemia 11/01/20 07:00 01/30/21 06:59 Dextrose (Dextrose 50%) 50 ml Q30M PRN IV Hypoglycemia 11/01/20 07:00 01/30/21 06:59 Insulin Aspart (NovoLOG) BEFORE MEALS AND HS SUBQ 11/01/20 11:30 01/30/21 11:29 Piperacillin Sod/ Tazobactam Sod 2.25 gm/Sodium Chloride 110 ml @ 220 mls/hr Q8HR IVPB 11/02/20 14:00 11/09/20 13:59 Eliu Cortez MD Nov 02, 2020 11:55
[2020-11-02] MEDS ORDERED: Milk of Magnesia 30ml Ud ORAL PRN (12:15)
--- NOTE | 2020-11-02 13:14 | Consultation ---
History of Present Illness General Date patient seen: Nov 02, 2020 Reason for Hospitalization: Abnormal Labs Present Illness HPI This is a very pleasant 85-year-old female who is a diabetic that was brought in from home found semiunresponsive admitted further care and management blood glucose severely low. Patient identified to have abdominal distention surgery called to evaluate assist with care. Patient seen, patient by, chart reviewed. Patient is more awake and alert now and responsive. States she feels well. No nausea vomiting. Mild discomfort abdominal but no pain. Passing flatus. No prior abdominal surgeries. Is unaware of what recent transpired events have been. Allergies: Coded Allergies: UNABLE TO ASSESS (Unverified , 11/01/20) COVID-19 Screening Contact w/high risk pt: No Experienced COVID-19 symptoms?: No Medication History Scheduled Aspirin* (Aspirin*), Unknown Dose ORAL DAILY, (Reported) Famotidine* (Pepcid 20mg tablet*), 20 MG ORAL DAILY, (Reported) Rosuvastatin Calcium* (Crestor*), Unknown Dose ORAL DAILY, (Reported) Scheduled PRN Nitroglycerin 0.4MG table* (Nitroglycerin*), 0.4 MG SL .Q5MIN X 3 DOSES PRN for CHEST PAIN, (Reported) Patient History Limited by: medical condition History Provided By: Patient, Medical Record, PMD Healthcare decision maker Resuscitation status Advanced Directive on File Past Medical/Surgical History Past Medical/Surgical History: (1) Abdominal distension (2) NSTEMI (non-ST elevated myocardial infarction) (3) Acute encephalopathy (4) ESRD (end stage renal disease) on dialysis (5) Hypoglycemia Review of Systems Review of Symptoms General ROS: no weight loss or fever Psychological ROS: no depression or mood changes, no memory loss Ophthalmic ROS: no visual changes or eye irritation ENT ROS: no nasal congestion, hearing loss, dizziness Allergy and Immunology ROS: no allergic symptoms or urticaria Hematological and Lymphatic ROS: no swollen glands, unusual bleeding or bruising Endocrine ROS: no polyuria, polydipsia, weight changes, temperature intolerance Respiratory ROS: no cough, shortness of breath, or wheezing Cardiovascular ROS: no chest pain or dyspnea on exertion Gastrointestinal ROS: denies abdominal pain, bright red blood in stool. Musculoskeletal ROS: no myalgias or arthralgias Neurological ROS: no TIA or stroke symptoms Dermatological ROS: no new or changing skin lesions, rashes or pruritis Physical Exam Physical Exam General appearance: alert, cooperative, no distress, appears stated age Head: Normocephalic, without obvious abnormality, atraumatic Eyes: conjunctivae/corneas clear. PERRL, EOM's intact. Fundi benign Throat: Lips, mucosa, and tongue normal. Teeth and gums normal Neck: supple, symmetrical, trachea midline, no adenopathy, thyroid: not enlarged, symmetric, no tenderness/mass/nodules, no carotid bruit and no JVD Lungs: clear to auscultation bilaterally Heart: regular rate and rhythm, S1, S2 normal, no murmur, click, rub or gallop Abdomen: soft, non-tender. Bowel sounds normal. No masses, no organomegaly. mild gaseous distention Extremities: extremities normal, atraumatic, no cyanosis or edema Pulses: 2+ and symmetric Skin: Skin color, texture, turgor normal. No rashes or lesions Neurologic: Grossly normal Last 24 Hour Vital Signs Date Time Temp Pulse Resp B/P (MAP) Pulse Ox O2 Delivery O2 Flow Rate FiO2 11/02/20 12:00 97.3 88 20 136/67 (90) 98 11/02/20 11:30 68 11/02/20 09:51 67 172/61 11/02/20 09:39 68 11/02/20 09:15 98.1 75 20 172/61 (98) 98 11/02/20 09:00 98.2 82 17 142/65 100 Nasal Cannula 2.0 11/02/20 08:08 98.5 75 20 150/47 98 Nasal Cannula 2.0 11/02/20 05:00 98.2 73 16 148/51 98 Nasal Cannula 2.0 11/02/20 03:30 98.2 66 16 145/39 98 Nasal Cannula 2.0 11/02/20 01:30 98.2 74 16 138/36 98 Nasal Cannula 2.0 11/01/20 23:26 98.2 64 16 140/68 98 Nasal Cannula 2.0 11/01/20 21:30 98.2 68 18 137/72 98 Room Air 11/01/20 19:20 98.2 72 16 137/64 98 Nasal Cannula 2.0 11/01/20 17:11 98.2 65 18 127/52 98 Room Air 11/01/20 13:47 98.2 62 18 128/52 98 Room Air Intake and Output 11/01/20 11/02/20 19:00 07:00 Intake Total 1250 ml Balance 1250 ml Intake Oral 50 ml IV Total 1200 ml # Voids 1 # Bowel Movements 1 Laboratory Tests Test 11/01/20 13:45 11/01/20 19:01 11/02/20 00:01 11/02/20 05:00 POC Whole Blood Glucose 88 MG/DL (74-106) 87 MG/DL (74-106) White Blood Count 9.2 K/UL (4.8-10.8) 10.2 K/UL (4.8-10.8) Red Blood Count 2.83 M/UL (4.20-5.40) L 3.15 M/UL (4.20-5.40) L Hemoglobin 8.6 G/DL (12.0-16.0) L 9.5 G/DL (12.0-16.0) L Hematocrit 25.3 % (37.0-47.0) L 28.6 % (37.0-47.0) L Mean Corpuscular Volume 89 FL (80-99) 91 FL (80-99) Mean Corpuscular Hemoglobin 30.4 PG (27.0-31.0) 30.3 PG (27.0-31.0) Mean Corpuscular Hemoglobin Concent 34.0 G/DL (32.0-36.0) 33.3 G/DL (32.0-36.0) Red Cell Distribution Width 16.7 % (11.6-14.8) H 15.4 % (11.6-14.8) H Platelet Count 417 K/UL (150-450) 444 K/UL (150-450) Mean Platelet Volume 6.8 FL (6.5-10.1) 6.6 FL (6.5-10.1) Neutrophils (%) (Auto) 79.9 % (45.0-75.0) H 81.2 % (45.0-75.0) H Lymphocytes (%) (Auto) 8.5 % (20.0-45.0) L 8.1 % (20.0-45.0) L Monocytes (%) (Auto) 9.0 % (1.0-10.0) 9.5 % (1.0-10.0) Eosinophils (%) (Auto) 1.2 % (0.0-3.0) 0.4 % (0.0-3.0) Basophils (%) (Auto) 1.5 % (0.0-2.0) 0.9 % (0.0-2.0) Sodium Level 137 MMOL/L (136-145) Potassium Level 4.8 MMOL/L (3.5-5.1) Chloride Level 98 MMOL/L (98-107) Carbon Dioxide Level 27 MMOL/L (21-32) Anion Gap 12 mmol/L (5-15) Blood Urea Nitrogen 74 mg/dL (7-18) H Creatinine 7.7 MG/DL (0.55-1.30) H Estimat Glomerular Filtration Rate 5.0 mL/min (>60) Glucose Level 75 MG/DL (74-106) Calcium Level 8.4 MG/DL (8.5-10.1) L Calcium (Send out) Pending Phosphorus Level 3.9 MG/DL (2.5-4.9) Magnesium Level 2.1 MG/DL (1.8-2.4) Iron Level 37 ug/dL (50-175) L Total Iron Binding Capacity 175 ug/dL (250-450) L Percent Iron Saturation 21 % (15-50) Unsaturated Iron Binding 138 ug/dL (112-346) Ferritin > 2000 NG/ML (8-388) H Troponin I 0.322 ng/mL (0.000-0.056) Vitamin D 25-Hydroxy Pending 25-Hydroxy Vitamin D2 Pending 25-Hydroxy Vitamin D3 Pending Parathyroid Hormone (Intact) Pending Test 11/02/20 08:07 11/02/20 12:31 POC Whole Blood Glucose 102 MG/DL (74-106) 106 MG/DL (74-106) Height (Feet): 5 Height (Inches): 5.00 Weight (Pounds): 140 Medications Current Medications Medications (Trade) Dose Ordered Sig/Scooter Route PRN Reason Start Time Stop Time Status Last Admin Dose Admin Acetaminophen (Tylenol) 650 mg Q6H PRN ORAL For Pain 11/02/20 13:00 12/02/20 12:59 Amlodipine Besylate (Norvasc) 5 mg DAILY ORAL 11/02/20 09:00 1/14/21 08:59 11/02/20 09:51 Aspirin (ASA) 81 mg DAILY ORAL 11/03/20 09:00 12/18/20 08:59 Azithromycin (Zithromax) 500 mg DAILY ORAL 11/02/20 09:00 11/07/20 10:50 11/02/20 09:51 Dextrose (Dextrose 50%) 25 ml Q30M PRN IV Hypoglycemia 11/02/20 12:15 01/31/21 12:14 Dextrose (Dextrose 50%) 50 ml Q30M PRN IV Hypoglycemia 11/02/20 12:15 01/31/21 12:14 Dextrose/Sodium Chloride 1,000 ml @ 50 mls/hr Q20H IV 11/02/20 14:00 11/03/20 13:59 Diphenhydramine HCl (Benadryl) 25 mg Q6H PRN ORAL Itching/Pruritis 11/02/20 12:30 12/02/20 12:29 Docusate Sodium (Colace) 100 mg EVERY 12 HOURS ORAL 11/02/20 21:00 12/02/20 20:59 Famotidine (Pepcid) 20 mg DAILY ORAL 11/03/20 09:00 02/01/21 08:59 Heparin Sodium (Porcine) (Heparin 5000 units/ml) 5,000 units EVERY 8 HOURS SUBQ 11/02/20 14:00 12/17/20 13:59 Hydralazine HCl (Apresoline) 10 mg Q4H PRN IV For SBP >160 11/02/20 13:00 01/31/21 12:59 Insulin Aspart (NovoLOG) BEFORE MEALS AND HS SUBQ 11/01/20 11:30 01/30/21 11:29 Piperacillin Sod/ Tazobactam Sod 2.25 gm/Sodium Chloride 110 ml @ 220 mls/hr Q8HR IVPB 11/02/20 14:00 11/09/20 13:59 Polyethylene Glycol (Miralax) 17 gm HSPRN PRN ORAL Constipation 11/02/20 21:00 12/02/20 20:59 Assessment/Plan Problem List: (1) NSTEMI (non-ST elevated myocardial infarction) ICD Codes: I21.4 - Non-ST elevation (NSTEMI) myocardial infarction SNOMED: 12884022 (2) Acute encephalopathy ICD Codes: G93.40 - Encephalopathy, unspecified SNOMED: 91654850, 014478911 (3) Abdominal distension Assessment & Plan: 85F recently found down here by EMS hypoglycemic, abnormal labs, abd distention noted. patient with minimal abd complaints. mild distention noted on exam but likely baseline seems to have been losing weight recently. bmi 23. alb noted passing flatus and had BM this afternoon bm wnl no n/v/f/c tolerating oral intake hold on imaging for now okay for diet will monitor clinically with physical exam thank you ICD Codes: R14.0 - Abdominal distension (gaseous) SNOMED: 32120108 (4) Hypoglycemia ICD Codes: E16.2 - Hypoglycemia, unspecified SNOMED: 778465129, 177400685 (5) ESRD (end stage renal disease) on dialysis ICD Codes: N18.6 - End stage renal disease; Z99.2 - Dependence on renal dialysis SNOMED: 368276360, 846191420 Scout Martinez Nov 02, 2020 13:14
--- NOTE | 2020-11-02 13:48 | Diagnostic Imaging Report ---
Indication: Shortness of breath Technique: 2 views of the chest Comparison: Single view chest 11/01/2020 Findings: Bilateral pleural effusions, right greater than left, are unchanged. Bilateral interstitial edema is unchanged. The heart size is upper limits normal. Impression: Unchanged, over one day, findings as above.
[2020-11-02] MEDS: Heparin 5000 units/ml inj SUBQ SCH ×2 (14:00→21:38)
[2020-11-02] MEDS: Dextrose 10%/.45 SOD CHL 1,000 ML IV SCH (14:18)
[2020-11-02] MEDS: Zosyn 2.25gm in NS 110ML IVPB SCH ×2 (14:19→21:44)
--- NOTE | 2020-11-02 15:16 | NUR ---
NURSE NOTES: pt signed consent form for HD and thoracentesis by ARTURO Amaya.
--- NOTE | 2020-11-02 15:28 | NUR ---
NURSE NOTES: Received pt from SUPERVISOR LEAD REFINERYARTURO Graham, all admission assessments and instructions done and pt verbally confirmed to understand all. pt has NC 2lit, pt is on continues heart monitoring, pt has intact iv access RAC 20G is running well. pt has BRYNN shunt, Dr Rai visited pt and is aware about labs and troponin 0.322 and ECG and other lab results and V/S, MD will F/U. All needs attended, bed is locked and is in the lowest position, call light within easy reach. will continue to monitor.
--- NOTE | 2020-11-02 16:01 | Consultation ---
DATE OF CONSULTATION: 11/02/2020 PULMONARY CONSULTATION CONSULTING PHYSICIAN: Ty Mauro MD HISTORY OF PRESENT ILLNESS: This is an 85-year-old female with history of ESRD and diabetes mellitus. She is insulin dependent. She was found down and was unresponsive. She was brought to the hospital with hypoglycemia. She received D10 water. She improved with neurological evaluation after receiving dextrose. Patient reports that she has been having dialysis and was feeling weaker for dialysis and therefore on Sunday she was anorexic. She is on 10 units of long-acting insulin. At this time, she states she is feeling better. REVIEW OF SYSTEMS: Denies any headaches, hematemesis, melena, hematochezia, night sweats, or weight loss. PAST MEDICAL HISTORY: ESRD on dialysis, diabetes mellitus. CURRENT MEDICATIONS: Includes Norvasc, azithromycin, dextrose water, insulin sliding scale, Zosyn. ALLERGIES: None reported. PHYSICAL EXAMINATION: GENERAL: Reveals an 85-year-old female. HEENT: Unremarkable. CHEST: Diminished breath sounds bilaterally. HEART: Normal heart sounds. ABDOMEN: Soft. EXTREMITIES: There is no edema. VITAL SIGNS: Blood pressure 170/70, heart rate 74, respirations 18, O2 saturation 98% on 2 L of oxygen. LABORATORY DATA: Lab testing shows hemoglobin 9.5, otherwise normal CBC and BMP with the exception of course of creatinine being 7.7. Coags are negative with INR 1.2. Urinalysis shows multiple pus cells. IMAGING STUDIES: Head CT was negative done in the ER. X-ray chest obtained, which shows cardiomegaly and moderate sized right-sided effusion. IMPRESSION: 1. Large right pleural effusion. 2. ESRD, on dialysis. 3. Hypoglycemia. 4. Diabetes mellitus. DISCUSSION: Consideration should be given for thoracentesis at this time. She is asymptomatic. However, given the size of the effusion, I would recommend thoracentesis. We will arrange thoracentesis. Discussed with patient. We will follow carefully. Ty Mauro M.D. DR: BHAVIK JOB#: [id number] CC:
--- NOTE | 2020-11-02 17:43 | General Progress Note ---
Subjective Allergies: Coded Allergies: UNABLE TO ASSESS (Unverified , 11/01/20) Subjective Chart reviewed. Patient here for hypoglycemia now resolved. Also with hypoxia and on oxygen. Right pleural effusion. Endorses SOB but no Chest pain. Dry cough. no fever or chills. Review of systems: Constitutional: Denies: chills, diaphoresis, fever, malaise, weakness, other HEENT: Denies: eye pain, blurred vision, tearing, double vision, ear pain, ear discharge, nose pain, nose congestion, throat pain, throat swelling, mouth pain, mouth swelling, Cardiovascular: Denies: chest pain, edema, lightheadedness, palpitations, syncope, Respiratory: Denies: SOB at rest, sputum, stridor, wheezing, other Gastrointestinal/Abdominal: Denies: abdomen distended, abdominal pain, black stools, tarry stools, blood in stool, constipated, diarrhea, difficulty swallowing, nausea, poor appetite, poor fluid intake, rectal bleeding, vomiting, other Genitourinary: Denies: burning, discharge, frequency, flank pain, hematuria, incontinence, pain, urgency, other Neurologic/Psychiatric: Denies: anxiety, depressed, emotional problems, headache, numbness, paresthesia, pre-existing deficit, seizure, tingling, tremors, weakness, other Endocrine: Denies: excessive sweating, flushing, intolerance to cold, intolerance to heat, increased hunger, increased thirst, increased urine, unexplained weight gain, unexplained weight loss, other MSK: denies joint pains, swelling, stiffness Hematologic/Lymphatic: Denies: anemia, easy bleeding, easy bruising, other Objective Last 24 Hour Vital Signs Date Time Temp Pulse Resp B/P (MAP) Pulse Ox O2 Delivery O2 Flow Rate FiO2 11/02/20 16:00 97.7 75 20 141/51 (81) 97 11/02/20 15:33 66 11/02/20 12:00 97.3 88 20 136/67 (90) 98 11/02/20 11:30 68 11/02/20 09:51 67 172/61 11/02/20 09:39 68 11/02/20 09:15 98.1 75 20 172/61 (98) 98 11/02/20 09:00 98.2 82 17 142/65 100 Nasal Cannula 2.0 11/02/20 08:08 98.5 75 20 150/47 98 Nasal Cannula 2.0 11/02/20 05:00 98.2 73 16 148/51 98 Nasal Cannula 2.0 11/02/20 03:30 98.2 66 16 145/39 98 Nasal Cannula 2.0 11/02/20 01:30 98.2 74 16 138/36 98 Nasal Cannula 2.0 11/01/20 23:26 98.2 64 16 140/68 98 Nasal Cannula 2.0 11/01/20 21:30 98.2 68 18 137/72 98 Room Air 11/01/20 19:20 98.2 72 16 137/64 98 Nasal Cannula 2.0 Intake and Output 11/01/20 11/02/20 19:00 07:00 Intake Total 1250 ml Balance 1250 ml Intake Oral 50 ml IV Total 1200 ml # Voids 1 # Bowel Movements 1 Laboratory Tests 11/01/20 19:01: POC Whole Blood Glucose 87 11/02/20 00:01: White Blood Count 9.2, Red Blood Count 2.83L, Hemoglobin 8.6L, Hematocrit 25.3L, Mean Corpuscular Volume 89, Mean Corpuscular Hemoglobin 30.4, Mean Corpuscular Hemoglobin Concent 34.0, Red Cell Distribution Width 16.7H, Platelet Count 417, Mean Platelet Volume 6.8, Neutrophils (%) (Auto) 79.9H, Lymphocytes (%) (Auto) 8.5L, Monocytes (%) (Auto) 9.0, Eosinophils (%) (Auto) 1.2, Basophils (%) (Auto) 1.5 11/02/20 05:00: White Blood Count 10.2, Red Blood Count 3.15L, Hemoglobin 9.5L, Hematocrit 28.6L , Mean Corpuscular Volume 91, Mean Corpuscular Hemoglobin 30.3, Mean Corpuscular Hemoglobin Concent 33.3, Red Cell Distribution Width 15.4H, Platelet Count 444, Mean Platelet Volume 6.6, Neutrophils (%) (Auto) 81.2H, Lymphocytes (%) (Auto) 8.1L, Monocytes (%) (Auto) 9.5, Eosinophils (%) (Auto) 0.4, Basophils (%) (Auto) 0.9, Sodium Level 137, Potassium Level 4.8, Chloride Level 98, Carbon Dioxide Level 27, Anion Gap 12, Blood Urea Nitrogen 74H, Creatinine 7.7H, Estimat Tamika merular Filtration Rate 5.0, Glucose Level 75, Calcium Level 8.4L, Calcium (Send out) [Pending], Phosphorus Level 3.9, Magnesium Level 2.1, Iron Level 37L, Total Iron Binding Capacity 175L, Percent Iron Saturation 21, Unsaturated Iron Binding 138, Ferritin > 2000H, Troponin I 0.322H, Vitamin D 25-Hydroxy [Pending], 25-Hydroxy Vitamin D2 [Pending], 25-Hydroxy Vitamin D3 [Pending], Parathyroid Hormone (Intact) [Pending], Hepatitis B Surface Antigen [Pending] 11/02/20 08:07: POC Whole Blood Glucose 102 11/02/20 12:31: POC Whole Blood Glucose 106 11/02/20 15:59: POC Whole Blood Glucose 105 Height (Feet): 5 Height (Inches): 5.00 Weight (Pounds): 140 Objective General: WDWN male/female in NAD, A&O x 4 HEENT: Normocephalic cephalic atraumatic, pupils equal round reactive to light and accommodation, nares patent and no symmetrical, no tonsillar exudates, mucous membranes moist CV: Regular rate regular rhythm, no murmurs, rubs, or gallops Pulm: Lungs clear to auscultation bilaterally. No wheezes, rhonchi, or rales GI: Soft, nontender, nondistended, bowel sounds present Neuro: CN 2-12 intact bilaterally, no focal signs. Ext: No lower extremity edema bilaterally Skin: no rashes lesions or ulcers Msk: Joints symmetrical in upper extremity and lower extremity bilaterally, no joint swelling. Lymph: No lymphadenopathy in upper extremity and lower extremity Assessment/Plan Status: stable Assessment/Plan: #Metabolic Encephalopathy #Hypoglycemia, likely due to insulin use in setting of infection and ESRD #Hypothermia Patient presented following BG 20s in the field. Now alert and oriented, though unable to state correct insulin dose. - CT Brain with no acute intracranial hemorrhage, or midline shift - IVF with D5W to keep BG 150-200 - Continue re-orienting techniques #Type 2 NSTEMI, suspect demand - Aspirin in the ED, no active chest pain - EKG - Sinus bradycardia with RBBB - HR improving with rewarming - Cardiology consult: Dr. Camp #Myalgias #UTI #Concern for possible aspiration pna vs. pleural effusion - Correlate w/Repeat CXR 2 in AM - BC x2 - UC with pyuria - Covid neg x 1. Repeat per ID - Abx - Azithromycin and Zosyn, s/p ceftriaxone in ED - Pulm consult; Tirmizi - ID consult : [place] - Patient is currently on RA #Insulin Dependent T2DM - Hold insulin for now - ISS - Will need diabetic education #ESRD (//sun) - Nephrology consulted, appreciate recs #HLD - continue crestor Diet - Carb consistent Heparin sq 38 inutes spent on this encounter. Discussed with nephrology, ID, Pulm. 20 spent on counseling and care coordination. Time of note may not reflect time patient was seen. Alec Saleh D.O. Nov 02, 2020 17:43
--- NOTE | 2020-11-02 17:52 | NUR ---
PT HAS NO BREAST DUE TO BI MASTECTOMY. Addendum: 11/02/20 at 1033 by Drew Toro RN Amended: Links added.
--- NOTE | 2020-11-02 18:23 | NUR ---
NURSE NOTES: HD started now, will continue to monitor.
--- NOTE | 2020-11-02 18:52 | NUR ---
NURSE NOTES: pt stated no allergies she has.
--- NOTE | 2020-11-02 19:03 | NUR ---
NURSE HAND-OFF REPORT: Important Events on Shift: Patient Status: Diet: Pending Orders: Pending Results/Labs: Pending MD notification: Latest Vital Signs: Temperature 97.7 , Pulse 75 , B/P 141 /51 , Respiratory Rate 20 , O2 SAT 97 , Nasal Cannula, O2 Flow Rate 2.0 . Vital Sign Comment: EKG Rhythm: Sinus Rhythm Rhythm change?: N MD Notified?: Tootie SNELL MD Response: No New Orders Received Latest [place] Fall Score: 30 Fall Risk: Medium Risk Safety Measures: Call light Within Reach, Bed Alarm Zone 3, Side Rails Side Rails x3, Bed position Low and Locked. Fall Precautions: Yellow Socks Yellow Gown Door Sign Patient Fall Education Report given to . Pt is awake and stable, no stress noted. HD is still doing. Endorsed plan of care, endorsed to monitor BS.
--- NOTE | 2020-11-02 19:25 | NUR ---
NURSE NOTES: Received patient from ARTURO Russell. Patient AAOx3, able to communicate needs. IV site intact and flushed; IVF running at a prescribed rate. Currently undergoing HD. No complaints of pain or discomfort at this time. Bed in lowest position, brakes engaged and bed alarm on. Bed rails raised x2. Call light placed within reach. Will continue to monitor.
--- NOTE | 2020-11-02 20:48 | Nephrology Progress Note ---
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- #Hypoglycemia #DM #Anemia #HTN HLD - HD today - continue D5 drip - monitor for volume overload - check iron panel - check ferritin - check PTH - vitamin D - monitor hemoglobin - amlodipine 5mg daily time spent 70 min Subjective ROS Limited/Unobtainable: No Constitutional: Denies: no symptoms, chills, diaphoresis, fever, malaise, weakness, other HEENT: Denies: no symptoms, eye pain, blurred vision, tearing, double vision, ear pain, ear discharge, nose pain, nose congestion, throat pain, throat swelling, mouth pain, mouth swelling, other Genitourinary: Denies: no symptoms, burning, discharge, frequency, flank pain, hematuria, incontinence, pain, urgency, other Subjective plan for HD today Objective Objective Last 24 Hour Vital Signs Date Time Temp Pulse Resp B/P (MAP) Pulse Ox O2 Delivery O2 Flow Rate FiO2 11/02/20 16:00 97.7 75 20 141/51 (81) 97 11/02/20 15:33 66 11/02/20 12:00 97.3 88 20 136/67 (90) 98 11/02/20 11:30 68 11/02/20 09:51 67 172/61 11/02/20 09:39 68 11/02/20 09:30 Nasal Cannula 2.0 11/02/20 09:15 98.1 75 20 172/61 (98) 98 11/02/20 09:00 98.2 82 17 142/65 100 Nasal Cannula 2.0 11/02/20 08:08 98.5 75 20 150/47 98 Nasal Cannula 2.0 11/02/20 05:00 98.2 73 16 148/51 98 Nasal Cannula 2.0 11/02/20 03:30 98.2 66 16 145/39 98 Nasal Cannula 2.0 11/02/20 01:30 98.2 74 16 138/36 98 Nasal Cannula 2.0 11/01/20 23:26 98.2 64 16 140/68 98 Nasal Cannula 2.0 11/01/20 21:30 98.2 68 18 137/72 98 Room Air Intake and Output 11/01/20 11/02/20 19:00 07:00 Intake Total 1250 ml Balance 1250 ml Intake Oral 50 ml IV Total 1200 ml # Voids 1 # Bowel Movements 1 Laboratory Tests 11/02/20 00:01: White Blood Count 9.2, Red Blood Count 2.83L, Hemoglobin 8.6L, Hematocrit 25.3L, Mean Corpuscular Volume 89, Mean Corpuscular Hemoglobin 30.4, Mean Corpuscular Hemoglobin Concent 34.0, Red Cell Distribution Width 16.7H, Platelet Count 417, Mean Platelet Volume 6.8, Neutrophils (%) (Auto) 79.9H, Lymphocytes (%) (Auto) 8.5L, Monocytes (%) (Auto) 9.0, Eosinophils (%) (Auto) 1.2, Basophils (%) (Auto) 1.5 11/02/20 05:00: White Blood Count 10.2, Red Blood Count 3.15L, Hemoglobin 9.5L, Hematocrit 28.6L , Mean Corpuscular Volume 91, Mean Corpuscular Hemoglobin 30.3, Mean Corpuscular Hemoglobin Concent 33.3, Red Cell Distribution Width 15.4H, Platelet Count 444, Mean Platelet Volume 6.6, Neutrophils (%) (Auto) 81.2H, Lymphocytes (%) (Auto) 8.1L, Monocytes (%) (Auto) 9.5, Eosinophils (%) (Auto) 0.4, Basophils (%) (Auto) 0.9, Sodium Level 137, Potassium Level 4.8, Chloride Level 98, Carbon Dioxide Level 27, Anion Gap 12, Blood Urea Nitrogen 74H, Creatinine 7.7H, Estimat Glomer ular Filtration Rate 5.0, Glucose Level 75, Calcium Level 8.4L, Calcium (Send out) [Pending], Phosphorus Level 3.9, Magnesium Level 2.1, Iron Level 37L, Total Iron Binding Capacity 175L, Percent Iron Saturation 21, Unsaturated Iron Binding 138, Ferritin > 2000H, Troponin I 0.322H, Vitamin D 25-Hydroxy [Pending], 25-Hydroxy Vitamin D2 [Pending], 25-Hydroxy Vitamin D3 [Pending], Parathyroid Hormone (Intact) [Pending], Hepatitis B Surface Antigen [Pending] 11/02/20 08:07: POC Whole Blood Glucose 102 11/02/20 12:31: POC Whole Blood Glucose 106 11/02/20 15:59: POC Whole Blood Glucose 105 Height (Feet): 5 Height (Inches): 5.00 Weight (Pounds): 140 General Appearance: WD/WN, no apparent distress EENT: PERRL/EOMI, normal ENT inspection Neck: non-tender, normal alignment Cardiovascular: normal peripheral pulses, normal rate Respiratory/Chest: chest wall non-tender, lungs clear Abdomen: normal bowel sounds, non tender Extremities: normal range of motion, non-tender Neurologic: alert, oriented x 3 Belinda Fraire M.D. Nov 02, 2020 20:48
[2020-11-02] MEDS ORDERED: Miralax 17gm pkt ORAL PRN (21:00)
--- NOTE | 2020-11-02 21:34 | Consultation ---
History of Present Illness General Date patient seen: Nov 02, 2020 Time patient seen: 21:28 Chief Complaint: Abnormal Labs Reason for Consultation: ESRD on HD Present Illness HPI 85F with PMhx of ESRD and Insulin dependent DM2 was biba after being found unresponsive. Per EMS report and history of patient - she was found in the field cool, diaphoretic and with a BG of 23 in the field where she was given D10W. Following her accucheck in the field was found to be 336. At bedside patient is alert following glucose gtt. She states that she had dialysis on Sunday and was feeling weak after dialysis. On Sunday all day she rested in bed and had not eaten very much. She says that she took the assistance of her family to administer insulin and administered 10U of long acting insulin. Unclear of what dose of insulin patient takes at home Allergies: Coded Allergies: No Known Allergies (Unverified , 11/02/20) Medication History Scheduled Aspirin* (Aspirin*), Unknown Dose ORAL DAILY, (Reported) Famotidine* (Pepcid 20mg tablet*), 20 MG ORAL DAILY, (Reported) Rosuvastatin Calcium* (Crestor*), Unknown Dose ORAL DAILY, (Reported) Scheduled PRN Nitroglycerin 0.4MG table* (Nitroglycerin*), 0.4 MG SL .Q5MIN X 3 DOSES PRN for CHEST PAIN, (Reported) Patient History Healthcare decision maker Resuscitation status Advanced Directive on File Review of Systems Constitutional: Reports: malaise, weakness Eye: Reports: no symptoms ENT: Reports: no symptoms Respiratory: Reports: no symptoms Cardiovascular: Reports: no symptoms Gastrointestinal: Reports: no symptoms Genitourinary: Reports: no symptoms Musculoskeletal: Reports: no symptoms Skin: Reports: no symptoms Psychiatric: Reports: no symptoms Neurological: Reports: syncope Endocrine: Reports: no symptoms Hematologic/Lymphatic: Reports: no symptoms Physical Exam General Appearance: no apparent distress Lines, tubes and drains: peripheral HEENT: normocephalic, atraumatic Neck: non-tender, normal alignment, supple, normal inspection Respiratory/Chest: chest wall non-tender, lungs clear Cardiovascular/Chest: normal peripheral pulses, normal rate, regular rhythm Abdomen: normal bowel sounds, non tender, soft, no organomegaly, no mass Extremities: normal range of motion, non-tender, normal inspection, no calf tenderness, normal capillary refill Skin Exam: normal pigmentation, warm/dry, cyanotic Neurologic: stationary engineer refrigeration II-XII grossly normal, no motor/sensory deficits Last 24 Hour Vital Signs Date Time Temp Pulse Resp B/P (MAP) Pulse Ox O2 Delivery O2 Flow Rate FiO2 11/02/20 16:00 97.7 75 20 141/51 (81) 97 11/02/20 15:33 66 11/02/20 12:00 97.3 88 20 136/67 (90) 98 11/02/20 11:30 68 11/02/20 09:51 67 172/61 11/02/20 09:39 68 11/02/20 09:30 Nasal Cannula 2.0 11/02/20 09:15 98.1 75 20 172/61 (98) 98 11/02/20 09:00 98.2 82 17 142/65 100 Nasal Cannula 2.0 11/02/20 08:08 98.5 75 20 150/47 98 Nasal Cannula 2.0 11/02/20 05:00 98.2 73 16 148/51 98 Nasal Cannula 2.0 11/02/20 03:30 98.2 66 16 145/39 98 Nasal Cannula 2.0 11/02/20 01:30 98.2 74 16 138/36 98 Nasal Cannula 2.0 11/01/20 23:26 98.2 64 16 140/68 98 Nasal Cannula 2.0 11/01/20 21:30 98.2 68 18 137/72 98 Room Air Intake and Output 11/01/20 11/02/20 19:00 07:00 Intake Total 1250 ml Balance 1250 ml Intake Oral 50 ml IV Total 1200 ml # Voids 1 # Bowel Movements 1 Laboratory Tests Test 11/02/20 00:01 11/02/20 05:00 11/02/20 08:07 11/02/20 12:31 White Blood Count 9.2 K/UL (4.8-10.8) 10.2 K/UL (4.8-10.8) Red Blood Count 2.83 M/UL (4.20-5.40) L 3.15 M/UL (4.20-5.40) L Hemoglobin 8.6 G/DL (12.0-16.0) L 9.5 G/DL (12.0-16.0) L Hematocrit 25.3 % (37.0-47.0) L 28.6 % (37.0-47.0) L Mean Corpuscular Volume 89 FL (80-99) 91 FL (80-99) Mean Corpuscular Hemoglobin 30.4 PG (27.0-31.0) 30.3 PG (27.0-31.0) Mean Corpuscular Hemoglobin Concent 34.0 G/DL (32.0-36.0) 33.3 G/DL (32.0-36.0) Red Cell Distribution Width 16.7 % (11.6-14.8) H 15.4 % (11.6-14.8) H Platelet Count 417 K/UL (150-450) 444 K/UL (150-450) Mean Platelet Volume 6.8 FL (6.5-10.1) 6.6 FL (6.5-10.1) Neutrophils (%) (Auto) 79.9 % (45.0-75.0) H 81.2 % (45.0-75.0) H Lymphocytes (%) (Auto) 8.5 % (20.0-45.0) L 8.1 % (20.0-45.0) L Monocytes (%) (Auto) 9.0 % (1.0-10.0) 9.5 % (1.0-10.0) Eosinophils (%) (Auto) 1.2 % (0.0-3.0) 0.4 % (0.0-3.0) Basophils (%) (Auto) 1.5 % (0.0-2.0) 0.9 % (0.0-2.0) Sodium Level 137 MMOL/L (136-145) Potassium Level 4.8 MMOL/L (3.5-5.1) Chloride Level 98 MMOL/L (98-107) Carbon Dioxide Level 27 MMOL/L (21-32) Anion Gap 12 mmol/L (5-15) Blood Urea Nitrogen 74 mg/dL (7-18) H Creatinine 7.7 MG/DL (0.55-1.30) H Estimat Glomerular Filtration Rate 5.0 mL/min (>60) Glucose Level 75 MG/DL (74-106) Calcium Level 8.4 MG/DL (8.5-10.1) L Calcium (Send out) Pending Phosphorus Level 3.9 MG/DL (2.5-4.9) Magnesium Level 2.1 MG/DL (1.8-2.4) Iron Level 37 ug/dL (50-175) L Total Iron Binding Capacity 175 ug/dL (250-450) L Percent Iron Saturation 21 % (15-50) Unsaturated Iron Binding 138 ug/dL (112-346) Ferritin > 2000 NG/ML (8-388) H Troponin I 0.322 ng/mL (0.000-0.056) Vitamin D 25-Hydroxy Pending 25-Hydroxy Vitamin D2 Pending 25-Hydroxy Vitamin D3 Pending Parathyroid Hormone (Intact) Pending Hepatitis B Surface Antigen Pending POC Whole Blood Glucose 102 MG/DL (74-106) 106 MG/DL (74-106) Test 11/02/20 15:59 11/02/20 21:27 POC Whole Blood Glucose 105 MG/DL (74-106) Pending Height (Feet): 5 Height (Inches): 5.00 Weight (Pounds): 140 Medications Current Medications Medications (Trade) Dose Ordered Sig/Scooter Route PRN Reason Start Time Stop Time Status Last Admin Dose Admin Acetaminophen (Tylenol) 650 mg Q6H PRN ORAL For Pain 11/02/20 13:00 12/02/20 12:59 11/02/20 17:21 Amlodipine Besylate (Norvasc) 5 mg DAILY ORAL 11/02/20 09:00 12/02/20 08:59 11/02/20 09:51 Aspirin (ASA) 81 mg DAILY ORAL 11/03/20 09:00 12/18/20 08:59 Azithromycin (Zithromax) 500 mg DAILY ORAL 11/02/20 09:00 11/07/20 10:50 11/02/20 09:51 Dextrose (Dextrose 50%) 25 ml Q30M PRN IV Hypoglycemia 11/02/20 12:15 01/31/21 12:14 Dextrose (Dextrose 50%) 50 ml Q30M PRN IV Hypoglycemia 11/02/20 12:15 01/31/21 12:14 Dextrose/Sodium Chloride 1,000 ml @ 50 mls/hr Q20H IV 11/02/20 14:00 11/03/20 13:59 11/02/20 14:18 Diphenhydramine HCl (Benadryl) 25 mg Q6H PRN ORAL Itching/Pruritis 11/02/20 12:30 12/02/20 12:29 Docusate Sodium (Colace) 100 mg EVERY 12 HOURS ORAL 11/02/20 21:00 12/02/20 20:59 Famotidine (Pepcid) 20 mg DAILY ORAL 11/03/20 09:00 02/01/21 08:59 Heparin Sodium (Porcine) (Heparin 5000 units/ml) 5,000 units EVERY 8 HOURS SUBQ 11/02/20 14:00 12/17/20 13:59 Hydralazine HCl (Apresoline) 10 mg Q4H PRN IV For SBP >160 11/02/20 13:00 01/31/21 12:59 Insulin Aspart (NovoLOG) BEFORE MEALS AND HS SUBQ 11/01/20 11:30 01/30/21 11:29 Piperacillin Sod/ Tazobactam Sod 2.25 gm/Sodium Chloride 110 ml @ 220 mls/hr Q8HR IVPB 11/02/20 14:00 11/09/20 13:59 11/02/20 14:19 Polyethylene Glycol (Miralax) 17 gm HSPRN PRN ORAL Constipation 11/02/20 21:00 12/02/20 20:59 Assessment/Plan Status: stable Assessment/Plan: Assessment/Plan: Metabolic Encephalopathy Hypoglycemia, Hypothermia Elevated troponin in setting of ESRD Bradycardia Right bundle branch block URI ESRD HLD PLAN: Continue supportive care Mild IV fluids Maintain HD Trend troponin, no indication for cardiac cath - no CP/EKG changes RBBB stable no indication for intervention Hold beta blockers Outpatient stress test when stable Thoracentesis for moderate pleural effusion Continue crestor, check lipid panel Continue BP medications DASH diet Tab Camp MD Nov 02, 2020 21:34
[2020-11-02] MEDS: Docusate 100mg cap ORAL SCH (21:37)
[2020-11-03] VITALS: BP 148/45
[2020-11-03 04:00] VITALS: BP 143/51
[2020-11-03] MEDS: Zosyn 2.25gm in NS 110ML IVPB SCH ×3 (05:57→21:11)
[2020-11-03] MEDS: Heparin 5000 units/ml inj SUBQ SCH ×3 (05:58→22:49)
[2020-11-03] MEDS: NovoLOG Insulin Flexpen SUBQ SCH ×4 (06:00→21:00)
--- NOTE | 2020-11-03 07:12 | NUR ---
NURSE NOTES: Received patient from ARTURO Pereyra. Patient is A/O x3 and vebally responsive. Pt has RAX site intact and flushed; IVF running at a prescribed rate. Currently undergoing HD. No complaints of pain or discomfort at this time. Bed in lowest position, brakes engaged and bed alarm on. Bed rails raised x2. Call light placed within reach. Will continue to monitor.
--- NOTE | 2020-11-03 07:35 | NUR ---
NURSE HAND-OFF REPORT: Important Events on Shift:[HD during the shift: took out 2L, per ARTURO Coughlin.] Patient Status: [FC] Diet: [CCHO low] Pending Orders: [ultrasound guided aspiration injection thoracentesis] Pending Results/Labs:[] Pending MD notification:[] Latest Vital Signs: Temperature 99.3 , Pulse 67 , B/P 143 /51 , Respiratory Rate 24 , O2 SAT 100 , Nasal Cannula, O2 Flow Rate 2.0 . Vital Sign Comment: [] EKG Rhythm: SR w/ 1AVB Rhythm change?: N MD Notified?: Tootie SNELL MD Response: No New Orders Received Latest Bolaños Fall Score: 30 Fall Risk: Medium Risk Safety Measures: Call light Within Reach, Bed Alarm Zone 1, Side Rails Side Rails x2, Bed position Low and Locked. Fall Precautions: Yellow Socks Yellow Gown Door Sign Patient Fall Education Report given to [ARTURO Gonzalez].
[2020-11-03 08:00] VITALS: BP 148/54
[2020-11-03] MEDS: Docusate 100mg cap ORAL SCH ×2 (09:00→21:00)
[2020-11-03 09:04] LABS: BASOPHILS % (AUTO) 0.7 % (0.0-2.0); EOSINOPHILS % (AUTO) 1.7 % (0.0-3.0); HEMATOCRIT 25.6 % (37.0-47.0); HEMOGLOBIN 8.3 G/DL (12.0-16.0); LYMPHOCYTES % (AUTO) 7.7 % (20.0-45.0); MEAN CORPUSCULAR VOLUME 94 FL (80-99); MONOCYTES % (AUTO) 11.1 % (1.0-10.0); NEUTROPHILS % (AUTO) 78.8 % (45.0-75.0); PLATELET COUNT 409 K/UL (150-450); RED BLOOD COUNT 2.71 M/UL (4.20-5.40); RED CELL DISTRIBUTION WIDTH 15.5 % (11.6-14.8); WHITE BLOOD COUNT 9.3 K/UL (4.8-10.8)
[2020-11-03] MEDS: Azithromycin 250mg tab ORAL SCH (09:05)
[2020-11-03] MEDS: Aspirin Baby 81mg ORAL SCH (09:06)
[2020-11-03] MEDS: Dextrose 10%/.45 SOD CHL 1,000 ML IV SCH (09:07)
[2020-11-03 09:27] LABS: ALBUMIN 1.9 G/DL (3.4-5.0); ALBUMIN/GLOBULIN RATIO 0.4 (1.0-2.7); BILIRUBIN,TOTAL 0.5 MG/DL (0.2-1.0); CREATININE 5.3 MG/DL (0.55-1.30); POTASSIUM 4.7 MMOL/L (3.5-5.1)
--- NOTE | 2020-11-03 09:30 | NUR ---
BORING INSPECTOR NOTE SW met w/ pt and evaluated home safety. Pt resides w/ her sister in law, Cecy at [address] [place] [id number]. PT does not have any children. PT's apartment is located on the 2nd floor of the building. There is no elevator in the buildling. Pt uses both cane and walker to ambulate. Per pt, she has hx of multiple falls. The last fall was on street a month ago. PT reports Cecy is her IHSS provider. PT does not recall the IHSS hours. Cecy assists w/ ADLs and IADLs including cooking, bathing. Pt reports she receives sufficient support from Cecy. PT goes to a dialysis clinic in [place] every T, TH, SAT. Cecy assists w/ transportation. Based on the information provided by pt, she has high fall risk. However, pt reports she would not consider rehab/SNF/higher level of care and wants to return home. Recommending PT to evaluate pt's mobility. Emergency contact: Cecy (sister in law) [phone]
[2020-11-03 09:45] LABS: PHOSPHORUS 4.2 MG/DL (2.5-4.9)
[2020-11-03 12:00] VITALS: BP 142/56
--- NOTE | 2020-11-03 14:37 | NUR ---
CASE MANAGEMENT:REVIEW BIBA FROM HOME CC: BLOOD GLUCOSE-23 SI: HYPOGLYCEMIA. ESRD. NSTEMI. ACUTE ENCEPHALOPATHY 98.6 60 20 96/31 99% ON RA WBC+11.0 H/H-7.5/22.0 BUN+60 CR+6.6 IS: 1L D5NS BOLUS IV LEVAQUIN ASA PO CXR : TO TELEMETRY DCP: FROM HOME
--- NOTE | 2020-11-03 14:52 | Brief Operative Note ---
Immediate Post Operative Note Operative Note Pre-op Diagnosis: pleural effusion Procedure: R thoracentesis Post-op Diagnosis: same as pre-op Surgeon: Maria D HAWLEY Anesthesia: local Specimen: yes - 50 ml fluid saved Complications: none Fluids: none Implant(s) used?: No Bernard Hawley MD Nov 03, 2020 14:52
--- NOTE | 2020-11-03 14:52 | Surgery Progress Note ---
Surgery Progress Note Subjective Symptoms: improved Additional Comments going down for US no n/v comfortable Objective Last 24 Hour Vital Signs Date Time Temp Pulse Resp B/P (MAP) Pulse Ox O2 Delivery O2 Flow Rate FiO2 11/03/20 12:00 98.7 99 20 142/56 (84) 99 11/03/20 12:00 71 11/03/20 09:06 64 143/51 11/03/20 09:00 Nasal Cannula 3.0 11/03/20 08:00 68 11/03/20 08:00 98.9 69 22 148/54 (85) 100 11/03/20 04:00 99.3 67 24 143/51 (81) 100 11/03/20 04:00 64 11/03/20 00:00 98.3 70 24 148/45 (79) 100 11/03/20 00:00 74 11/02/20 21:00 Nasal Cannula 2.0 11/02/20 20:00 68 11/02/20 20:00 98.5 68 24 139/53 (81) 100 11/02/20 16:00 97.7 75 20 141/51 (81) 97 11/02/20 15:33 66 I&O Intake and Output 11/02/20 11/03/20 19:00 07:00 Intake Total 430 ml 560 ml Output Total 2000 ml Balance 430 ml -1440 ml Intake Oral 120 ml 560 ml IV Total 310 ml Output Hemodialysis UF 2000 ml # Bowel Movements 1 1 Cardiovascular: RSR Respiratory: decreased breath sounds Abdomen: non-tender, present bowel sounds Extremities: no tenderness, no cyanosis Laboratory Tests Test 11/02/20 15:59 11/02/20 21:27 11/03/20 08:00 POC Whole Blood Glucose 105 MG/DL (74-106) 171 MG/DL (74-106) H White Blood Count 9.3 K/UL (4.8-10.8) Red Blood Count 2.71 M/UL (4.20-5.40) L Hemoglobin 8.3 G/DL (12.0-16.0) L Hematocrit 25.6 % (37.0-47.0) L Mean Corpuscular Volume 94 FL (80-99) Mean Corpuscular Hemoglobin 30.5 PG (27.0-31.0) Mean Corpuscular Hemoglobin Concent 32.4 G/DL (32.0-36.0) Red Cell Distribution Width 15.5 % (11.6-14.8) H Platelet Count 409 K/UL (150-450) Mean Platelet Volume 6.8 FL (6.5-10.1) Neutrophils (%) (Auto) 78.8 % (45.0-75.0) H Lymphocytes (%) (Auto) 7.7 % (20.0-45.0) L Monocytes (%) (Auto) 11.1 % (1.0-10.0) H Eosinophils (%) (Auto) 1.7 % (0.0-3.0) Basophils (%) (Auto) 0.7 % (0.0-2.0) Sodium Level 140 MMOL/L (136-145) Potassium Level 4.7 MMOL/L (3.5-5.1) Chloride Level 103 MMOL/L (98-107) Carbon Dioxide Level 31 MMOL/L (21-32) Anion Gap 6 mmol/L (5-15) Blood Urea Nitrogen 37 mg/dL (7-18) H Creatinine 5.3 MG/DL (0.55-1.30) H Estimat Glomerular Filtration Rate 7.7 mL/min (>60) Glucose Level 129 MG/DL (74-106) H Calcium Level 8.0 MG/DL (8.5-10.1) L Phosphorus Level 4.2 MG/DL (2.5-4.9) Magnesium Level 2.1 MG/DL (1.8-2.4) Total Bilirubin 0.5 MG/DL (0.2-1.0) Gamma Glutamyl Transpeptidase 77 U/L (5-85) Aspartate Amino Transf (AST/SGOT) 18 U/L (15-37) Alanine Aminotransferase (ALT/SGPT) 15 U/L (12-78) Alkaline Phosphatase 162 U/L (46-116) H Total Protein 6.4 G/DL (6.4-8.2) Albumin 1.9 G/DL (3.4-5.0) L Globulin 4.5 g/dL Albumin/Globulin Ratio 0.4 (1.0-2.7) L Plan Problems: (1) NSTEMI (non-ST elevated myocardial infarction) (2) Acute encephalopathy (3) Abdominal distension Assessment & Plan: 85F recently found down here by EMS hypoglycemic, abnormal labs, abd distention noted. patient with minimal abd complaints. mild distention noted on exam but likely baseline seems to have been losing weight recently. bmi 23. alb noted passing flatus and had BM this afternoon bm wnl no n/v/f/c tolerating oral intake hold on imaging for now okay for diet will monitor clinically with physical exam thank you (4) Hypoglycemia (5) ESRD (end stage renal disease) on dialysis Scout Martinez Nov 03, 2020 14:52
--- NOTE | 2020-11-03 14:52 | Pre-Procedure Note/Attestation ---
Pre-Procedure Note/Attestation Complete Prior to Procedure Planned Procedure: right Procedure Narrative: thoracentesis Indications for Procedure Pre-Operative Diagnosis: pleural effusion Attestation I attest that I discussed the nature of the procedure; its benefits; risks and complications; and alternatives (and the risks and benefits of such alternatives), prior to the procedure, with the patient (or the patient's legal sales and marketing representative). I attest that, if there was a reasonable possibility of needing a blood tra nsfusion, the patient (or the patient's legal sales and marketing representative) was given the [facility] standardized written summary, pursuant to the [place] Blood Safety Act ([place] Health and Safety Code # 1645, as amended). I attest that I re-evaluated the patient just prior to the surgery and that there has been no change in the patient's H&P, except as documented below: Benrard Hawley MD Nov 03, 2020 14:51
--- NOTE | 2020-11-03 15:02 | Pulmonology Progress Note ---
Subjective ROS Limited/Unobtainable: No Interval Events: s/p paracentesis Constitutional: Reports: no symptoms HEENT: Repors: no symptoms Respiratory: Reports: no symptoms Cardiovascular: Reports: no symptoms Gastrointestinal/Abdominal: Reports: diarrhea Allergies: Coded Allergies: No Known Allergies (Unverified , 11/02/20) Objective Last 24 Hour Vital Signs Date Time Temp Pulse Resp B/P (MAP) Pulse Ox O2 Delivery O2 Flow Rate FiO2 11/03/20 12:00 98.7 99 20 142/56 (84) 99 11/03/20 12:00 71 11/03/20 09:06 64 143/51 11/03/20 09:00 Nasal Cannula 3.0 11/03/20 08:00 68 11/03/20 08:00 98.9 69 22 148/54 (85) 100 11/03/20 04:00 99.3 67 24 143/51 (81) 100 11/03/20 04:00 64 11/03/20 00:00 98.3 70 24 148/45 (79) 100 11/03/20 00:00 74 11/02/20 21:00 Nasal Cannula 2.0 11/02/20 20:00 68 11/02/20 20:00 98.5 68 24 139/53 (81) 100 11/02/20 16:00 97.7 75 20 141/51 (81) 97 11/02/20 15:33 66 Intake and Output 11/02/20 11/03/20 19:00 07:00 Intake Total 430 ml 560 ml Output Total 2000 ml Balance 430 ml -1440 ml Intake Oral 120 ml 560 ml IV Total 310 ml Output Hemodialysis UF 2000 ml # Bowel Movements 1 1 Objective 11/03/2020 pt sitting in bed saturating well on RA General Appearance: WD/WN, no acute distress HEENT: normocephalic, atraumatic Respiratory: decreased breath sounds Cardiovascular: normal peripheral pulses, normal rate, regular rhythm Abdomen: soft, non tender Microbiology Date/Time Source Procedure Growth Status 11/01/20 07:12 Rectum - Final NO CARBAPENEM-RESISTANT ENTEROBACTERI... Complete 11/01/20 07:12 Rectum Received 11/01/20 06:07 Nasopharynx Coronavirus COVID-19 PCR (MARIOLA) - Final Complete 11/01/20 04:44 Urine,Clean Catch Urine Culture - Preliminary NO GROWTH Resulted Laboratory Tests 11/02/20 15:59: POC Whole Blood Glucose 105 11/02/20 21:27: POC Whole Blood Glucose 171H 11/03/20 08:00: White Blood Count 9.3, Red Blood Count 2.71L, Hemoglobin 8.3L, Hematocrit 25.6L, Mean Corpuscular Volume 94, Mean Corpuscular Hemoglobin 30.5, Mean Corpuscular Hemoglobin Concent 32.4, Red Cell Distribution Width 15.5H, Platelet Count 409, Mean Platelet Volume 6.8, Neutrophils (%) (Auto) 78.8H, Lymphocytes (%) (Auto) 7.7L, Monocytes (%) (Auto) 11.1H, Eosinophils (%) (Auto) 1.7, Basophils (%) (Auto) 0.7, Sodium Level 140, Potassium Level 4.7, Chloride Level 103, Carbon Dioxide Level 31, Anion Gap 6, Blood Urea Nitrogen 37H, Creatinine 5.3H, Estimat Glomerular Filtration Rate 7.7, Glucose Level 129H, Calcium Level 8.0L, Phosphorus Level 4.2, Magnesium Level 2.1, Total Bilirubin 0.5, Gamma Glutamyl Transpeptidase 77, Aspartate Amino Transf (AST/SGOT) 18, Alanine Aminotr ansferase (ALT/SGPT) 15, Alkaline Phosphatase 162H, Total Protein 6.4, Albumin 1.9L, Globulin 4.5, Albumin/Globulin Ratio 0.4L Current Medications Medications (Trade) Dose Ordered Sig/Scooter Route PRN Reason Start Time Stop Time Status Last Admin Dose Admin Acetaminophen (Tylenol) 650 mg Q6H PRN ORAL For Pain 11/02/20 13:00 12/02/20 12:59 11/02/20 17:21 Amlodipine Besylate (Norvasc) 5 mg DAILY ORAL 11/02/20 09:00 12/02/20 08:59 11/03/20 09:06 Aspirin (ASA) 81 mg DAILY ORAL 11/03/20 09:00 12/18/20 08:59 11/03/20 09:06 Azithromycin (Zithromax) 500 mg DAILY ORAL 11/02/20 09:00 11/07/20 10:50 11/03/20 09:05 Dextrose (Dextrose 50%) 25 ml Q30M PRN IV Hypoglycemia 11/02/20 12:15 01/31/21 12:14 Dextrose (Dextrose 50%) 50 ml Q30M PRN IV Hypoglycemia 11/02/20 12:15 01/31/21 12:14 Diphenhydramine HCl (Benadryl) 25 mg Q6H PRN ORAL Itching/Pruritis 11/02/20 12:30 12/02/20 12:29 Docusate Sodium (Colace) 100 mg EVERY 12 HOURS ORAL 11/02/20 21:00 12/02/20 20:59 11/02/20 21:37 Famotidine (Pepcid) 20 mg DAILY ORAL 11/03/20 09:00 02/01/21 08:59 11/03/20 09:06 Heparin Sodium (Porcine) (Heparin 5000 units/ml) 5,000 units EVERY 8 HOURS SUBQ 11/02/20 14:00 12/17/20 13:59 11/03/20 14:41 Hydralazine HCl (Apresoline) 10 mg Q4H PRN IV For SBP >160 11/02/20 13:00 01/31/21 12:59 Insulin Aspart (NovoLOG) BEFORE MEALS AND HS SUBQ 11/01/20 11:30 01/30/21 11:29 11/03/20 12:02 Piperacillin Sod/ Tazobactam Sod 2.25 gm/Sodium Chloride 110 ml @ 220 mls/hr Q8HR IVPB 11/02/20 14:00 11/09/20 13:59 11/03/20 14:39 Polyethylene Glycol (Miralax) 17 gm HSPRN PRN ORAL Constipation 11/02/20 21:00 12/02/20 20:59 Assessment/Plan Assessment/Plan 1. Large right pleural effusion. - s/p thoracentesis; 1.4L removed; follow-up CXR better 2. ESRD, on dialysis. 3. Hypoglycemia. 4. Diabetes mellitus. DISCUSSION: now s/p thoracentesis CXR improved We will follow carefully. The care for this patient was discussed with my supervising physician Time spent for this case was approximately 31 minutes The patient was seen and examined at bedside and all new and available data was reviewed in the patients chart. I agree with the above findings, impression, and plan. (Patient was seen earlier today. Signature timestamp does not reflect patient encounter time) Baldev Mccray MD Nov 03, 2020 15:02 Ty Mauro MD Nov 03, 2020 17:30
--- NOTE | 2020-11-03 15:53 | Diagnostic Imaging Report ---
Indication: Status post thoracentesis Technique: One view of the chest Comparison: 11/02/2020 Findings: Interim decrease in previously demonstrated large right pleural effusion. Residual opacity at the lung base likely reflects residual pleural fluid, and/or pleural thickening and/or atelectasis. There is some consolidation of the right mid and lower lung as well, as well as there is mild generalized bilateral interstitial congestion. There is increasing pleural fluid on the left and increasing retrocardiac consolidation. No pneumothorax is demonstrated. The heart remains enlarged. Impression: Improved right pleural effusion, status post thoracentesis. No radiographically evident complication Increased smaller left pleural effusion Persistent interstitial edema Persistent right basilar opacity, likely combination of residual pleural fluid, atelectasis, and pleural thickening
[2020-11-03 16:00] VITALS: BP 134/57
--- NOTE | 2020-11-03 16:53 | Diagnostic Imaging Report ---
Indications: Pleural effusion Technique: Ultrasound used to localize optimal puncture site. Sterile prepping and draping right chest. Local anesthesia with 1% lidocaine. Under real-time ultrasound guidance, puncture pleural space using thoracentesis needle. Stylet removed. Catheter placed to vacuum bottle suction. Total 1400 milliliters of blood-tinged fluid aspirated. Patient tolerated procedure well, without immediate complication. Findings: Followup sonography demonstrates resolution of most of the pleural fluid Impression: Successful ultrasound-guided thoracentesis, yielding 1400 milliliters of fluid
--- NOTE | 2020-11-03 19:05 | Nephrology Progress Note ---
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- #Hypoglycemia #DM #Anemia #HTN HLD - HD tomorrow - continue D5 drip - monitor for volume overload - check iron panel - check ferritin - check PTH - vitamin D - monitor hemoglobin - amlodipine 5mg daily time spent 70 min Subjective ROS Limited/Unobtainable: No Constitutional: Reports: weakness HEENT: Denies: no symptoms, eye pain, blurred vision, tearing, double vision, ear pain, ear discharge, nose pain, nose congestion, throat pain, throat swelling, mouth pain, mouth swelling, other Genitourinary: Denies: no symptoms, burning, discharge, frequency, flank pain, hematuria, incontinence, pain, urgency, other Neurologic/Psychiatric: Denies: no symptoms, anxiety, depressed, emotional prob lems, headache, numbness, paresthesia, pre-existing deficit, seizure, tingling, tremors, weakness, other Subjective plan for HD today Objective Objective Last 24 Hour Vital Signs Date Time Temp Pulse Resp B/P (MAP) Pulse Ox O2 Delivery O2 Flow Rate FiO2 11/03/20 16:00 71 11/03/20 16:00 98.1 70 18 134/57 (82) 100 11/03/20 12:00 98.7 99 20 142/56 (84) 99 11/03/20 12:00 71 11/03/20 09:06 64 143/51 11/03/20 09:00 Nasal Cannula 3.0 11/03/20 08:00 68 11/03/20 08:00 98.9 69 22 148/54 (85) 100 11/03/20 04:00 99.3 67 24 143/51 (81) 100 11/03/20 04:00 64 11/03/20 00:00 98.3 70 24 148/45 (79) 100 11/03/20 00:00 74 11/02/20 21:00 Nasal Cannula 2.0 11/02/20 20:00 68 11/02/20 20:00 98.5 68 24 139/53 (81) 100 Intake and Output 11/02/20 11/03/20 19:00 07:00 Intake Total 430 ml 560 ml Output Total 2000 ml Balance 430 ml -1440 ml Intake Oral 120 ml 560 ml IV Total 310 ml Hemodialysis UF 2000 ml # Bowel Movements 1 1 Laboratory Tests 11/02/20 21:27: POC Whole Blood Glucose 171H 11/03/20 08:00: White Blood Count 9.3, Red Blood Count 2.71L, Hemoglobin 8.3L, Hematocrit 25.6L, Mean Corpuscular Volume 94, Mean Corpuscular Hemoglobin 30.5, Mean Corpuscular Hemoglobin Concent 32.4, Red Cell Distribution Width 15.5H, Platelet Count 409, Mean Platelet Volume 6.8, Neutrophils (%) (Auto) 78.8H, Lymphocytes (%) (Auto) 7.7L, Monocytes (%) (Auto) 11.1H, Eosinophils (%) (Auto) 1.7, Basophils (%) (Auto) 0.7, Sodium Level 140, Potassium Level 4.7, Chloride Level 103, Carbon Dioxide Level 31, Anion Gap 6, Blood Urea Nitrogen 37H, Creatinine 5.3H, Estimat Glomerular Filtration Rate 7.7, Glucose Level 129H, Calcium Level 8.0L, Phosphorus Level 4.2, Magnesium Level 2.1, Total Bilirubin 0.5, Gamma Glutamyl Transpeptidase 77, Aspartate Amino Transf (AST/SGOT) 18, Alanine Aminotransferase (ALT/SGPT) 15, Alkaline Phosphatase 162H, Total Protein 6.4, Albumin 1.9L, Globulin 4.5, Albumin/Globulin Ratio 0.4L 11/03/20 16:54: POC Whole Blood Glucose 159H Height (Feet): 5 Height (Inches): 5.00 Weight (Pounds): 140 Belinda Fraire M.D. Nov 03, 2020 19:05
--- NOTE | 2020-11-03 19:17 | General Progress Note ---
Subjective Allergies: Coded Allergies: No Known Allergies (Unverified , 11/02/20) Subjective No acute events overnight per nursing. Patient blood sugar improved. Continued on D10. Plan for thoracentesis of right pleural effusion. Still on O2 but doing well. No other complaints. Review of systems: Constitutional: Denies: chills, diaphoresis, fever, malaise, weakness, other HEENT: Denies: eye pain, blurred vision, tearing, double vision, ear pain, ear discharge, nose pain, nose congestion, throat pain, throat swelling, mouth pain, mouth swelling, Cardiovascular: Denies: chest pain, edema, lightheadedness, palpitations, syncope, Respiratory: Denies: SOB at rest, sputum, stridor, wheezing, other + SOB Gastrointestinal/Abdominal: Denies: abdomen distended, abdominal pain, black stools, tarry stools, blood in stool, constipated, diarrhea, difficulty swallowing, nausea, poor appetite, poor fluid intake, rectal bleeding, vomiting, other Genitourinary: Denies: burning, discharge, frequency, flank pain, hematuria, incontinence, pain, urgency, other Neurologic/Psychiatric: Denies: anxiety, depressed, emotional problems, headache, numbness, paresthesia, pre-existing deficit, seizure, tingling, aravind mors, weakness, other Endocrine: Denies: excessive sweating, flushing, intolerance to cold, intolerance to heat, increased hunger, increased thirst, increased urine, unexplained weight gain, unexplained weight loss, other MSK: denies joint pains, swelling, stiffness Hematologic/Lymphatic: Denies: anemia, easy bleeding, easy bruising, other Objective Last 24 Hour Vital Signs Date Time Temp Pulse Resp B/P (MAP) Pulse Ox O2 Delivery O2 Flow Rate FiO2 11/03/20 16:00 71 11/03/20 16:00 98.1 70 18 134/57 (82) 100 11/03/20 12:00 98.7 99 20 142/56 (84) 99 11/03/20 12:00 71 11/03/20 09:06 64 143/51 11/03/20 09:00 Nasal Cannula 3.0 11/03/20 08:00 68 11/03/20 08:00 98.9 69 22 148/54 (85) 100 11/03/20 04:00 99.3 67 24 143/51 (81) 100 11/03/20 04:00 64 11/03/20 00:00 98.3 70 24 148/45 (79) 100 11/03/20 00:00 74 11/02/20 21:00 Nasal Cannula 2.0 11/02/20 20:00 68 11/02/20 20:00 98.5 68 24 139/53 (81) 100 Intake and Output 11/02/20 11/03/20 18:59 06:59 Intake Total 430 ml 200 ml Output Total 2000 ml Balance 430 ml -1800 ml Intake Oral 120 ml 200 ml IV Total 310 ml Hemodialysis UF 2000 ml # Bowel Movements 1 1 Laboratory Tests 11/02/20 21:27: POC Whole Blood Glucose 171H 11/03/20 08:00: White Blood Count 9.3, Red Blood Count 2.71L, Hemoglobin 8.3L, Hematocrit 25.6L, Mean Corpuscular Volume 94, Mean Corpuscular Hemoglobin 30.5, Mean Corpuscular Hemoglobin Concent 32.4, Red Cell Distribution Width 15.5H, Platelet Count 409, Mean Platelet Volume 6.8, Neutrophils (%) (Auto) 78.8H, Lymphocytes (%) (Auto) 7.7L, Monocytes (%) (Auto) 11.1H, Eosinophils (%) (Auto) 1.7, Basophils (%) (Auto) 0.7, Sodium Level 140, Potassium Level 4.7, Chloride Level 103, Carbon Dioxide Level 31, Anion Gap 6, Blood Urea Nitrogen 37H, Creatinine 5.3H, Estimat Glomerular Filtration Rate 7.7, Glucose Level 129H, Calcium Level 8.0L, Phosphorus Level 4.2, Magnesium Level 2.1, Total Bilirubin 0.5, Gamma Glutamyl Transpeptidase 77, Aspartate Amino Transf (AST/SGOT) 18, Alanine Aminotransferase (ALT/SGPT) 15, Alkaline Phosphatase 162H, Total Protein 6.4, Albumin 1.9L, Globulin 4.5, Albumin/Globulin Ratio 0.4L 11/03/20 16:54: POC Whole Blood Glucose 159H Height (Feet): 5 Height (Inches): 5.00 Weight (Pounds): 140 Objective General: WDWN female in NAD, A&O x 4 HEENT: Normocephalic cephalic atraumatic, pupils equal round reactive to light and accommodation, nares patent and no symmetrical, no tonsillar exudates, mucous membranes moist CV: Regular rate regular rhythm, no murmurs, rubs, or gallops Pulm: Lungs decreased breath sounds on right. No wheezes, rhonchi, or rales GI: Soft, nontender, nondistended, bowel sounds present Neuro: CN 2-12 intact bilaterally, no focal signs. Ext: No lower extremity edema bilaterally Skin: no rashes lesions or ulcers Msk: Joints symmetrical in upper extremity and lower extremity bilaterally, no joint swelling. Lymph: No lymphadenopathy in upper extremity and lower extremity Assessment/Plan Status: stable Assessment/Plan: #Metabolic Encephalopathy #Hypoglycemia, likely due to insulin use in setting of infection and ESRD #Hypothermia Patient presented following BG 20s in the field. Now alert and oriented, though unable to state correct insulin dose. - CT Brain with no acute intracranial hemorrhage, or midline shift - IVF with D5W to keep BG 150-200 - Continue re-orienting techniques #Type 2 NSTEMI, suspect demand - Aspirin in the ED, no active chest pain - EKG - Sinus bradycardia with RBBB - HR improving with rewarming - Cardiology consult: Dr. Camp #Myalgias #UTI #Concern for possible aspiration pna #Right sided pleural effusion - Correlate w/Repeat CXR 2 in AM - BC x2 - UC with pyuria - Covid neg x 1. Repeat per ID - Abx - Azithromycin and Zosyn, s/p ceftriaxone in ED - Pulm consult; Tirmizi - Thoracentesis today 11/03 - ID consult : [place] #Elevated alk phos - check GGT #Insulin Dependent T2DM - Hold insulin for now - ISS - Will need diabetic education #ESRD (//sun) - Nephrology consulted, appreciate recs #HLD - continue crestor Diet - Carb consistent Heparin sq 36 minutes spent on this encounter. Discussed with nephrology, ID, Pulm. 20 spent on counseling and care coordination. Time of note may not reflect time patient was seen. Alec Saleh D.O. Nov 03, 2020 19:17
--- NOTE | 2020-11-03 19:24 | NUR ---
NURSE HAND-OFF REPORT: Important Events on Shift: Thoracentesis and 1.4L removed. Patient Status: Stable Diet: CCHO Low Pending Orders: Pending Results/Labs: Pending MD notification: Latest Vital Signs: Temperature 98.1 , Pulse 71 , B/P 134 /57 , Respiratory Rate 18 , O2 SAT 100 , Nasal Cannula, O2 Flow Rate 3.0 . Vital Sign Comment: EKG Rhythm: SR w/ 1 AVB & BBB Rhythm change?: N MD Notified?: Tootie SNELL MD Response: No New Orders Received Latest Bolaños Fall Score: 30 Fall Risk: Medium Risk Safety Measures: Call light Within Reach, Bed Alarm Zone 1, Side Rails Side Rails x2, Bed position Low and Locked. Fall Precautions: Yellow Socks Yellow Gown Door Sign Patient Fall Education Report given to Mirta.
--- NOTE | 2020-11-03 19:30 | NUR ---
NURSE NOTES: Received pt and report from ARTURO Gonzalez. Observed pt resting in bed with both eyes open and watching television. Pt is A/Ox3. panel saw operator is in placed; pt is SR with 1st degree HB & BBB. Bed is in the lowest position and locked. Call light and bedside table is within reach. No signs/symptoms of hypoglycemia or acute distress noted. Will continue plan of care.
[2020-11-03 20:00] VITALS: BP_SYST 135; BP_SYST 140; BP_DIAS 58; BP_DIAS 73
--- NOTE | 2020-11-03 20:48 | Infectious Diseases Prog Note ---
Assessment/Plan Assessment/Plan A) 1) uti 2) possible pna - ? aspiration pna, ? cap 3) rule out covid P) 1) zosyn - day # 3, discontinue azithromycin 2) f/u on cultures, monitor labs and chest x-ray 3) will f/u Subjective Constitutional: Denies: fever HEENT: Denies: congestion Respiratory: Denies: shortness of breath Cardiovascular: Denies: chest pain Gastrointestinal/Abdominal: Denies: nausea, vomiting, diarrhea Neurologic: Denies: headache Allergies: Coded Allergies: No Known Allergies (Unverified , 11/02/20) Objective Last 24 Hour Vital Signs Date Time Temp Pulse Resp B/P (MAP) Pulse Ox O2 Delivery O2 Flow Rate FiO2 11/03/20 16:00 71 11/03/20 16:00 98.1 70 18 134/57 (82) 100 11/03/20 12:00 98.7 99 20 142/56 (84) 99 11/03/20 12:00 71 11/03/20 09:06 64 143/51 11/03/20 09:00 Nasal Cannula 3.0 11/03/20 08:00 68 11/03/20 08:00 98.9 69 22 148/54 (85) 100 11/03/20 04:00 99.3 67 24 143/51 (81) 100 11/03/20 04:00 64 11/03/20 00:00 98.3 70 24 148/45 (79) 100 11/03/20 00:00 74 11/02/20 21:00 Nasal Cannula 2.0 Height (Feet): 5 Height (Inches): 5.00 Weight (Pounds): 140 General Appearance: no acute distress HEENT: normocephalic, atraumatic, anicteric Respiratory/Chest: lungs clear, normal breath sounds, no respiratory distress, no accessory muscle use Cardiovascular: normal rate, regular rhythm, no gallop/murmur Abdomen: normal bowel sounds, soft, non tender, no organomegaly, non distended Microbiology Date/Time Source Procedure Growth Status 11/01/20 07:12 Rectum - Final NO CARBAPENEM-RESISTANT ENTEROBACTERI... Complete 11/01/20 07:12 Rectum Received 11/01/20 06:10 Blood Blood Culture - Preliminary NO GROWTH AFTER 48 HOURS Resulted 12/14/20 06:07 Nasopharynx Coronavirus COVID-19 PCR ([facility]) - Final Complete 11/01/20 05:55 Blood Blood Culture - Preliminary NO GROWTH AFTER 48 HOURS Resulted 11/01/20 04:44 Urine,Clean Catch Urine Culture - Final Mixed Urogenital Contaminants Complete Laboratory Tests Test 11/02/20 21:27 11/03/20 08:00 11/03/20 16:54 POC Whole Blood Glucose 171 MG/DL (74-106) H 159 MG/DL (74-106) H White Blood Count 9.3 K/UL (4.8-10.8) Red Blood Count 2.71 M/UL (4.20-5.40) L Hemoglobin 8.3 G/DL (12.0-16.0) L Hematocrit 25.6 % (37.0-47.0) L Mean Corpuscular Volume 94 FL (80-99) Mean Corpuscular Hemoglobin 30.5 PG (27.0-31.0) Mean Corpuscular Hemoglobin Concent 32.4 G/DL (32.0-36.0) Red Cell Distribution Width 15.5 % (11.6-14.8) H Platelet Count 409 K/UL (150-450) Mean Platelet Volume 6.8 FL (6.5-10.1) Neutrophils (%) (Auto) 78.8 % (45.0-75.0) H Lymphocytes (%) (Auto) 7.7 % (20.0-45.0) L Monocytes (%) (Auto) 11.1 % (1.0-10.0) H Eosinophils (%) (Auto) 1.7 % (0.0-3.0) Basophils (%) (Auto) 0.7 % (0.0-2.0) Sodium Level 140 MMOL/L (136-145) Potassium Level 4.7 MMOL/L (3.5-5.1) Chloride Level 103 MMOL/L (98-107) Carbon Dioxide Level 31 MMOL/L (21-32) Anion Gap 6 mmol/L (5-15) Blood Urea Nitrogen 37 mg/dL (7-18) H Creatinine 5.3 MG/DL (0.55-1.30) H Estimat Glomerular Filtration Rate 7.7 mL/min (>60) Glucose Level 129 MG/DL (74-106) H Calcium Level 8.0 MG/DL (8.5-10.1) L Phosphorus Level 4.2 MG/DL (2.5-4.9) Magnesium Level 2.1 MG/DL (1.8-2.4) Total Bilirubin 0.5 MG/DL (0.2-1.0) Gamma Glutamyl Transpeptidase 77 U/L (5-85) Aspartate Amino Transf (AST/SGOT) 18 U/L (15-37) Alanine Aminotransferase (ALT/SGPT) 15 U/L (12-78) Alkaline Phosphatase 162 U/L (46-116) H Total Protein 6.4 G/DL (6.4-8.2) Albumin 1.9 G/DL (3.4-5.0) L Globulin 4.5 g/dL Albumin/Globulin Ratio 0.4 (1.0-2.7) L Current Medications Medications (Trade) Dose Ordered Sig/Scooter Route PRN Reason Start Time Stop Time Status Last Admin Dose Admin Acetaminophen (Tylenol) 650 mg Q6H PRN ORAL For Pain 11/02/20 13:00 12/02/20 12:59 11/02/20 17:21 Amlodipine Besylate (Norvasc) 5 mg DAILY ORAL 11/02/20 09:00 12/02/20 08:59 11/03/20 09:06 Aspirin (ASA) 81 mg DAILY ORAL 11/03/20 09:00 12/18/20 08:59 11/03/20 09:06 Azithromycin (Zithromax) 500 mg DAILY ORAL 11/02/20 09:00 11/07/20 10:50 11/03/20 09:05 Dextrose (Dextrose 50%) 25 ml Q30M PRN IV Hypoglycemia 11/02/20 12:15 01/31/21 12:14 Dextrose (Dextrose 50%) 50 ml Q30M PRN IV Hypoglycemia 11/02/20 12:15 01/31/21 12:14 Diphenhydramine HCl (Benadryl) 25 mg Q6H PRN ORAL Itching/Pruritis 11/02/20 12:30 12/02/20 12:29 Docusate Sodium (Colace) 100 mg EVERY 12 HOURS ORAL 11/02/20 21:00 12/02/20 20:59 11/02/20 21:37 Famotidine (Pepcid) 20 mg DAILY ORAL 11/03/20 09:00 02/01/21 08:59 11/03/20 09:06 Heparin Sodium (Porcine) (Heparin 5000 units/ml) 5,000 units EVERY 8 HOURS SUBQ 11/02/20 14:00 12/17/20 13:59 11/03/20 14:41 Hydralazine HCl (Apresoline) 10 mg Q4H PRN IV For SBP >160 11/02/20 13:00 01/31/21 12:59 Insulin Aspart (NovoLOG) BEFORE MEALS AND HS SUBQ 11/01/20 11:30 01/30/21 11:29 11/03/20 16:58 Piperacillin Sod/ Tazobactam Sod 2.25 gm/Sodium Chloride 110 ml @ 220 mls/hr Q8HR IVPB 11/02/20 14:00 11/09/20 13:59 11/03/20 14:39 Polyethylene Glycol (Miralax) 17 gm HSPRN PRN ORAL Constipation 11/02/20 21:00 12/02/20 20:59 Eliu Cortez MD Nov 03, 2020 20:48
[2020-11-04] VITALS: BP 153/50
[2020-11-04 04:00] VITALS: BP 154/48
[2020-11-04] MEDS: Heparin 5000 units/ml inj SUBQ SCH ×3 (05:59→22:38)
[2020-11-04] MEDS: Zosyn 2.25gm in NS 110ML IVPB SCH ×3 (05:59→22:38)
[2020-11-04] MEDS: NovoLOG Insulin Flexpen SUBQ SCH ×4 (06:00→21:00)
--- NOTE | 2020-11-04 07:35 | NUR ---
NURSE HAND-OFF REPORT: Important Events on Shift: Pt had two small episodes of loose stool. Didn't collect for C. Diff because pt is taking stool softener. Held stool softener on night shift manager and endorsed to dayshift to hold it as well. Patient Status: Stable Diet: CCHO (L) Pending Orders: HD Pending Results/Labs: AM Labs Pending MD notification: N Latest Vital Signs: Temperature 97.9 , Pulse 68 , B/P 154 /48 , Respiratory Rate 20 , O2 SAT 100 , Nasal Cannula, O2 Flow Rate 3.0 . EKG Rhythm: SR w/ 1st degree AVB & BBB Rhythm change?: N Latest Bolaños Fall Score: 30 Fall Risk: Medium Risk Safety Measures: Call light Within Reach, Bed Alarm Zone 1, Side Rails Side Rails x2, Bed position Low and Locked. Fall Precautions: Yellow Socks Yellow Gown Door Sign Patient Fall Education Report given to ARTURO Mcclendon.
--- NOTE | 2020-11-04 07:55 | NUR ---
NURSE NOTES: Patient seen in bed in high fowlers position eating breakfast with no complaints of pain and no acute signs of distress. The patient was receiving IV antibiotics at this time. The bed was placed in the lowest position, locked, side rails x2, bed alarm set to zone 1, all patient request were met at this time and call light within reach.
[2020-11-04 08:00] VITALS: BP 158/51
--- NOTE | 2020-11-04 08:13 | NUR ---
RD ASSESSMENT & RECOMMENDATIONS SEE CARE ACTIVITY FOR COMPLETE ASSESSMENT DAILY ESTIMATED NEEDS: Needs based on ESRD, HD + DM, 63.5kg 25-30 kcals/kg 4187-7398 total kcals 1.2-1.8 g protein/kg 76-114 g total protein 20-22 mL/kg 0740-1449 total fluid mLs NUTRITION DIAGNOSIS: Altered nutrition related lab values R/T ESRD, DM as evidenced by elev creat (7.3->5.3), on HD, U glu 3+, admitted due to hypoglycemia (BG 23) -> now improved (POC 95-159). CURRENT DIET:[facility] LOW PO DIET RECOMMENDATIONS: [facility] MED + RENAL ADDITIONAL RECOMMENDATIONS: * Daily calibrated bedscale wt * Monitor BGs closely for hypoglycemia -> 1 carb/high prot snacks TID in b/w meals * Nephrovite x 1 * Pt c/o diarrhea: consider checking stool c-diff add probiotics
--- NOTE | 2020-11-04 08:20 | Cardiology Progress Note ---
Assessment/Plan Status: stable Assessment/Plan Assessment/Plan: Metabolic Encephalopathy Hypoglycemia, Hypothermia Elevated troponin in setting of ESRD Bradycardia Right bundle branch block URI ESRD HLD PLAN: Continue supportive care Mild IV fluids Maintain HD Trend troponin, no indication for cardiac cath - no CP/EKG changes RBBB stable no indication for intervention Hold beta blockers Outpatient stress test when stable s/p Thoracentesis for moderate pleural effusion with improved breathing Continue crestor, check lipid panel Continue BP medications DASH diet Subjective Cardiovascular: Reports: no symptoms Respiratory: Reports: no symptoms Gastrointestinal/Abdominal: Reports: no symptoms Genitourinary: Reports: no symptoms Subjective No acute events, s/p thoracentesis with improved breathing, no arrhythmias Objective Last 24 Hour Vital Signs Date Time Temp Pulse Resp B/P (MAP) Pulse Ox O2 Delivery O2 Flow Rate FiO2 11/04/20 04:00 67 11/04/20 04:00 97.9 68 20 154/48 (83) 100 11/04/20 00:00 75 11/04/20 00:00 98.4 73 19 153/50 (84) 100 11/03/20 21:00 Nasal Cannula 3.0 11/03/20 20:00 77 11/03/20 20:00 99.4 77 19 140/58 (85) 100 11/03/20 16:00 71 11/03/20 16:00 98.1 70 18 134/57 (82) 100 11/03/20 12:00 98.7 99 20 142/56 (84) 99 11/03/20 12:00 71 11/03/20 09:06 64 143/51 11/03/20 09:00 Nasal Cannula 3.0 General Appearance: no apparent distress, alert EENT: PERRL/EOMI, normal ENT inspection, pharynx normal Neck: non-tender, normal alignment, supple Rhythm: NSR Cardiovascular: normal peripheral pulses, normal rate, regular rhythm Respiratory/Chest: chest wall non-tender, lungs clear, normal breath sounds Abdomen: normal bowel sounds, non tender, soft Extremities: normal range of motion, non-tender, normal inspection, no calf tenderness, no swelling Neurologic: property management specialist II-XII grossly normal, no motor/sensory deficits Intake and Output 11/03/20 11/04/20 19:00 07:00 Intake Total 720 ml 210 ml Output Total 450 ml Balance 270 ml 210 ml Intake Oral 720 ml 210 ml Output Urine Total 450 ml # Voids 2 # Bowel Movements 2 2 Laboratory Tests Test 11/03/20 16:54 11/04/20 05:55 11/04/20 06:37 POC Whole Blood Glucose 159 MG/DL (74-106) H Pending White Blood Count Pending Red Blood Count Pending Hemoglobin Pending Hematocrit Pending Mean Corpuscular Volume Pending Mean Corpuscular Hemoglobin Pending Mean Corpuscular Hemoglobin Concent Pending Red Cell Distribution Width Pending Platelet Count Pending Mean Platelet Volume Pending Neutrophils (%) (Auto) Pending Lymphocytes (%) (Auto) Pending Monocytes (%) (Auto) Pending Eosinophils (%) (Auto) Pending Basophils (%) (Auto) Pending Sodium Level Pending Potassium Level Pending Chloride Level Pending Carbon Dioxide Level Pending Blood Urea Nitrogen Pending Creatinine Pending Estimat Glomerular Filtration Rate Pending Glucose Level Pending Calcium Level Pending Phosphorus Level Pending Magnesium Level Pending Total Bilirubin Pending Aspartate Amino Transf (AST/SGOT) Pending Alanine Aminotransferase (ALT/SGPT) Pending Alkaline Phosphatase Pending Total Protein Pending Albumin Pending Globulin Pending Tab Camp MD Nov 04, 2020 08:20
[2020-11-04 08:42] LABS: ALBUMIN/GLOBULIN RATIO 0.4 (1.0-2.7); BILIRUBIN,TOTAL 0.4 MG/DL (0.2-1.0); CALCIUM 8.3 MG/DL (8.5-10.1); CREATININE 7.4 MG/DL (0.55-1.30); PHOSPHORUS 5.6 MG/DL (2.5-4.9); POTASSIUM 4.8 MMOL/L (3.5-5.1)
--- NOTE | 2020-11-04 08:42 | Consultation ---
History of Present Illness General Date patient seen: Nov 03, 2020 Chief Complaint: Abnormal Labs Reason for Consultation: ESRD on HD Present Illness HPI 85F with PMhx of ESRD and Insulin dependent DM2 was biba after being found unresponsive. Per EMS report and history of patient - she was found in the field cool, diaphoretic and with a BG of 23 in the field where she was given D10W. Following her accucheck in the field was found to be 336. At bedside patient is alert following glucose gtt. She states that she had dialysis on Sunday and was feeling weak after dialysis. On Sunday all day she rested in bed and had not eaten very much. She says that she took the assistance of her family to administer insulin and administered 10U of long acting insulin. pt remains confused, gets agitated well known to me, normally ao x 3 Allergies: Coded Allergies: No Known Allergies (Unverified , 11/02/20) Medication History Scheduled Aspirin* (Aspirin*), Unknown Dose ORAL DAILY, (Reported) Famotidine* (Pepcid 20mg tablet*), 20 MG ORAL DAILY, (Reported) Rosuvastatin Calcium* (Crestor*), Unknown Dose ORAL DAILY, (Reported) Scheduled PRN Nitroglycerin 0.4MG table* (Nitroglycerin*), 0.4 MG SL .Q5MIN X 3 DOSES PRN for CHEST PAIN, (Reported) Patient History Healthcare decision maker Resuscitation status Advanced Directive on File Physical Exam General Appearance: lethargic Lines, tubes and drains: peripheral HEENT: normocephalic, atraumatic Neck: non-tender Respiratory/Chest: chest wall non-tender Breasts: no masses Cardiovascular/Chest: normal rate Abdomen: normal bowel sounds, non tender Extremities: normal range of motion Skin Exam: normal pigmentation Lymphatic: anterior cervical Musculoskeletal: atrophy Last 24 Hour Vital Signs Date Time Temp Pulse Resp B/P (MAP) Pulse Ox O2 Delivery O2 Flow Rate FiO2 11/04/20 04:00 67 11/04/20 04:00 97.9 68 20 154/48 (83) 100 11/04/20 00:00 75 11/04/20 00:00 98.4 73 19 153/50 (84) 100 11/03/20 21:00 Nasal Cannula 3.0 11/03/20 20:00 77 11/03/20 20:00 99.4 77 19 140/58 (85) 100 11/03/20 16:00 71 11/03/20 16:00 98.1 70 18 134/57 (82) 100 11/03/20 12:00 98.7 99 20 142/56 (84) 99 11/03/20 12:00 71 11/03/20 09:06 64 143/51 11/03/20 09:00 Nasal Cannula 3.0 Intake and Output 11/03/20 11/04/20 19:00 07:00 Intake Total 720 ml 210 ml Output Total 450 ml Balance 270 ml 210 ml Intake Oral 720 ml 210 ml Output Urine Total 450 ml # Voids 2 # Bowel Movements 2 2 Laboratory Tests Test 11/03/20 16:54 11/04/20 05:55 11/04/20 06:37 POC Whole Blood Glucose 159 MG/DL (74-106) H Pending White Blood Count Pending Red Blood Count Pending Hemoglobin Pending Hematocrit Pending Mean Corpuscular Volume Pending Mean Corpuscular Hemoglobin Pending Mean Corpuscular Hemoglobin Concent Pending Red Cell Distribution Width Pending Platelet Count Pending Mean Platelet Volume Pending Neutrophils (%) (Auto) Pending Lymphocytes (%) (Auto) Pending Monocytes (%) (Auto) Pending Eosinophils (%) (Auto) Pending Basophils (%) (Auto) Pending Sodium Level Pending Potassium Level Pending Chloride Level Pending Carbon Dioxide Level Pending Blood Urea Nitrogen Pending Creatinine Pending Estimat Glomerular Filtration Rate Pending Glucose Level Pending Calcium Level Pending Phosphorus Level Pending Magnesium Level Pending Total Bilirubin Pending Aspartate Amino Transf (AST/SGOT) Pending Alanine Aminotransferase (ALT/SGPT) Pending Alkaline Phosphatase Pending Total Protein Pending Albumin Pending Globulin Pending Height (Feet): 5 Height (Inches): 5.00 Weight (Pounds): 140 Medications Current Medications Medications (Trade) Dose Ordered Sig/Scooter Route PRN Reason Start Time Stop Time Status Last Admin Dose Admin Acetaminophen (Tylenol) 650 mg Q6H PRN ORAL For Pain 11/02/20 13:00 12/02/20 12:59 11/02/20 17:21 Amlodipine Besylate (Norvasc) 5 mg DAILY ORAL 11/02/20 09:00 12/02/20 08:59 11/03/20 09:06 Aspirin (ASA) 81 mg DAILY ORAL 11/03/20 09:00 12/18/20 08:59 11/03/20 09:06 Dextrose (Dextrose 50%) 25 ml Q30M PRN IV Hypoglycemia 11/02/20 12:15 01/31/21 12:14 Dextrose (Dextrose 50%) 50 ml Q30M PRN IV Hypoglycemia 11/02/20 12:15 01/31/21 12:14 Diphenhydramine HCl (Benadryl) 25 mg Q6H PRN ORAL Itching/Pruritis 11/02/20 12:30 12/02/20 12:29 Docusate Sodium (Colace) 100 mg EVERY 12 HOURS ORAL 11/02/20 21:00 12/02/20 20:59 11/02/20 21:37 Famotidine (Pepcid) 20 mg DAILY ORAL 11/03/20 09:00 02/01/21 08:59 11/03/20 09:06 Heparin Sodium (Porcine) (Heparin 5000 units/ml) 5,000 units EVERY 8 HOURS SUBQ 11/02/20 14:00 12/17/20 13:59 11/03/20 22:49 Hydralazine HCl (Apresoline) 10 mg Q4H PRN IV For SBP >160 11/02/20 13:00 01/31/21 12:59 Insulin Aspart (NovoLOG) BEFORE MEALS AND HS SUBQ 11/01/20 11:30 01/30/21 11:29 11/03/20 16:58 Piperacillin Sod/ Tazobactam Sod 2.25 gm/Sodium Chloride 110 ml @ 220 mls/hr Q8HR IVPB 11/02/20 14:00 11/09/20 13:59 11/04/20 05:59 Polyethylene Glycol (Miralax) 17 gm HSPRN PRN ORAL Constipation 11/02/20 21:00 12/02/20 20:59 Objective Narrative lethargic non focal withdraws Assessment/Plan Problem List: (1) NSTEMI (non-ST elevated myocardial infarction) ICD Codes: I21.4 - Non-ST elevation (NSTEMI) myocardial infarction SNOMED: 10650021 (2) Acute encephalopathy ICD Codes: G93.40 - Encephalopathy, unspecified SNOMED: 81414333, 583213754 (3) Abdominal distension ICD Codes: R14.0 - Abdominal distension (gaseous) SNOMED: 95750324 (4) Hypoglycemia ICD Codes: E16.2 - Hypoglycemia, unspecified SNOMED: 885527097, 911876760 (5) ESRD (end stage renal disease) on dialysis ICD Codes: N18.6 - End stage renal disease; Z99.2 - Dependence on renal dialysis SNOMED: 152798790, 602147070 Assessment/Plan: metabolic encephalopathy, less likely vascular hold on mri for now cont delirium precautions medical support pt as able Nathaniel Doyle MD Nov 04, 2020 08:42
--- NOTE | 2020-11-04 08:42 | Neurology Progress Note ---
Interim History Interim History ROS Limited/Unobtainable: No Interim History 85F with PMhx of ESRD and Insulin dependent DM2 was biba after being found unresponsive. Per EMS report and history of patient - she was found in the field cool, diaphoretic and with a BG of 23 in the field where she was given D10W. Following her accucheck in the field was found to be 336. At bedside patient is alert following glucose gtt. She states that she had dialysis on Sunday and was feeling weak after dialysis. On Sunday all day she rested in bed and had not eaten very much. She says that she took the assistance of her family to administer insulin and administered 10U of long acting insulin. pt remains confused, gets agitated Objective Physical Exam Last Vital Signs Date Time Temp Pulse Resp B/P (MAP) Pulse Ox O2 Delivery O2 Flow Rate FiO2 11/04/20 04:00 67 11/04/20 04:00 97.9 20 154/48 (83) 100 11/03/20 21:00 Nasal Cannula 3.0 Laboratory Tests Test 11/03/20 16:54 11/04/20 05:55 11/04/20 06:37 POC Whole Blood Glucose 159 MG/DL (74-106) H Pending White Blood Count Pending Red Blood Count Pending Hemoglobin Pending Hematocrit Pending Mean Corpuscular Volume Pending Mean Corpuscular Hemoglobin Pending Mean Corpuscular Hemoglobin Concent Pending Red Cell Distribution Width Pending Platelet Count Pending Mean Platelet Volume Pending Neutrophils (%) (Auto) Pending Lymphocytes (%) (Auto) Pending Monocytes (%) (Auto) Pending Eosinophils (%) (Auto) Pending Basophils (%) (Auto) Pending Sodium Level Pending Potassium Level Pending Chloride Level Pending Carbon Dioxide Level Pending Blood Urea Nitrogen Pending Creatinine Pending Estimat Glomerular Filtration Rate Pending Glucose Level Pending Calcium Level Pending Phosphorus Level Pending Magnesium Level Pending Total Bilirubin Pending Aspartate Amino Transf (AST/SGOT) Pending Alanine Aminotransferase (ALT/SGPT) Pending Alkaline Phosphatase Pending Total Protein Pending Albumin Pending Globulin Pending Neurologic Exam Mental Status: awake Objective somnolent, confused withdraws all 4 nc at neck supple abd soft resp no distress Impression/Recommendations Problems: (1) NSTEMI (non-ST elevated myocardial infarction) (2) Acute encephalopathy (3) Abdominal distension (4) Hypoglycemia (5) ESRD (end stage renal disease) on dialysis Status: stable Diagnostic Impression ongoing metabolic encephalopathy, less likely vascular hold on mri for now cont delirium precautions medical support pt as able Nathaniel Doyle MD Nov 04, 2020 08:42
[2020-11-04 08:44] LABS: EOSINOPHILS % (AUTO) 1.4 % (0.0-3.0); HEMATOCRIT 25.6 % (37.0-47.0); HEMOGLOBIN 8.3 G/DL (12.0-16.0); LYMPHOCYTES % (AUTO) 8.6 % (20.0-45.0); MEAN CORPUSCULAR VOLUME 94 FL (80-99); MONOCYTES % (AUTO) 9.6 % (1.0-10.0); NEUTROPHILS % (AUTO) 79.4 % (45.0-75.0); PLATELET COUNT 424 K/UL (150-450); RED BLOOD COUNT 2.73 M/UL (4.20-5.40); RED CELL DISTRIBUTION WIDTH 15.5 % (11.6-14.8); WHITE BLOOD COUNT 10.4 K/UL (4.8-10.8)
[2020-11-04] MEDS: Aspirin Baby 81mg ORAL SCH (08:45)
[2020-11-04] MEDS: Docusate 100mg cap ORAL SCH ×2 (08:47→21:00)
[2020-11-04 12:00] VITALS: BP 158/54
--- NOTE | 2020-11-04 12:09 | NUR ---
NURSE NOTES: Reported a positive VRE of rectum swab to Dr. Lewis. Spoke to Otto from [facility] who will immediately relay the message to Dr. Lewis
--- NOTE | 2020-11-04 13:22 | Nephrology Progress Note ---
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- #Hypoglycemia #DM #Anemia #HTN HLD - HD today - amlodipine 5mg daily - monitor for volume overload - check iron panel - check ferritin - check PTH - vitamin D - monitor hemoglobin time spent 70 min Subjective ROS Limited/Unobtainable: No Constitutional: Reports: weakness HEENT: Denies: no symptoms, eye pain, blurred vision, tearing, double vision, ear pain, ear discharge, nose pain, nose congestion, throat pain, throat swelling, mouth pain, mouth swelling, other Genitourinary: Denies: no symptoms, burning, discharge, frequency, flank pain, hematuria, incontinence, pain, urgency, other Neurologic/Psychiatric: Denies: no symptoms, anxiety, depressed, emotional problems, headache, numbness, paresthesia, pre-existing deficit, seizure, tingling, tremors, weakness, other Subjective plan for HD today Objective Objective Last 24 Hour Vital Signs Date Time Temp Pulse Resp B/P (MAP) Pulse Ox O2 Delivery O2 Flow Rate FiO2 11/04/20 09:00 Nasal Cannula 2.0 11/04/20 08:46 86 158/51 11/04/20 08:00 97.9 86 18 158/51 (86) 100 11/04/20 08:00 71 11/04/20 04:00 67 11/04/20 04:00 97.9 68 20 154/48 (83) 100 11/04/20 00:00 75 11/04/20 00:00 98.4 73 19 153/50 (84) 100 11/03/20 21:00 Nasal Cannula 3.0 11/03/20 20:00 77 11/03/20 20:00 99.4 77 19 140/58 (85) 100 11/03/20 16:00 71 11/03/20 16:00 98.1 70 18 134/57 (82) 100 Intake and Output 11/03/20 11/04/20 19:00 07:00 Intake Total 720 ml 210 ml Output Total 450 ml Balance 270 ml 210 ml Intake Oral 720 ml 210 ml Output Urine Total 450 ml # Voids 2 # Bowel Movements 2 2 Laboratory Tests 11/03/20 16:54: POC Whole Blood Glucose 159H 11/04/20 05:55: POC Whole Blood Glucose [Pending] 11/04/20 06:37: White Blood Count 10.4, Red Blood Count 2.73L, Hemoglobin 8.3L, Hematocrit 25.6L , Mean Corpuscular Volume 94, Mean Corpuscular Hemoglobin 30.2, Mean Corpuscular Hemoglobin Concent 32.3, Red Cell Distribution Width 15.5H, Platelet Count 424, Mean Platelet Volume 6.5, Neutrophils (%) (Auto) 79.4H, Lymphocytes (%) (Auto) 8.6L, Monocytes (%) (Auto) 9.6, Eosinophils (%) (Auto) 1.4, Basophils (%) (Auto) 1.0, Sodium Level 140, Potassium Level 4.8, Chloride Level 103, Carbon Dioxide Level 27, Anion Gap 10, Blood Urea Nitrogen 59H, Creatinine 7.4H, Estimat Glomerular Filtration Rate 5.3, Glucose Level 114H, Calcium Level 8.3L, Phosphorus Level 5.6H, Magnesium Level 2.2, Total Bilirubin 0.4, Aspartate Amino Transf (AST/SGOT) 17, Alanine Aminotransferase (ALT/SGPT) 16, Alkaline Phosphatase 174H, Total Protein 6.5, Albumin 2.0L, Globulin 4.5, Albumin/Globulin Ratio 0.4L Height (Feet): 5 Height (Inches): 5.00 Weight (Pounds): 140 Belinda Fraire M.D. Nov 04, 2020 13:22
--- NOTE | 2020-11-04 14:35 | Surgery Progress Note ---
Surgery Progress Note Subjective Additional Comments comfortable talking with family on phone no n/c tolerating diet Objective Last 24 Hour Vital Signs Date Time Temp Pulse Resp B/P (MAP) Pulse Ox O2 Delivery O2 Flow Rate FiO2 11/04/20 12:00 97.8 88 18 158/54 (88) 100 11/04/20 12:00 72 11/04/20 09:00 Nasal Cannula 2.0 11/04/20 08:46 86 158/51 11/04/20 08:00 97.9 86 18 158/51 (86) 100 11/04/20 08:00 71 11/04/20 04:00 67 11/04/20 04:00 97.9 68 20 154/48 (83) 100 11/04/20 00:00 75 11/04/20 00:00 98.4 73 19 153/50 (84) 100 11/03/20 21:00 Nasal Cannula 3.0 11/03/20 20:00 77 11/03/20 20:00 99.4 77 19 140/58 (85) 100 11/03/20 16:00 71 11/03/20 16:00 98.1 70 18 134/57 (82) 100 I&O Intake and Output 11/03/20 11/04/20 19:00 07:00 Intake Total 720 ml 210 ml Output Total 450 ml Balance 270 ml 210 ml Intake Oral 720 ml 210 ml Output Urine Total 450 ml # Voids 2 # Bowel Movements 2 2 Dressing: saturated Cardiovascular: RSR Respiratory: decreased breath sounds Abdomen: non-tender, present bowel sounds Extremities: no edema, no tenderness, no cyanosis Laboratory Tests Test 11/03/20 16:54 11/04/20 05:55 11/04/20 06:37 POC Whole Blood Glucose 159 MG/DL (74-106) H Pending White Blood Count 10.4 K/UL (4.8-10.8) Red Blood Count 2.73 M/UL (4.20-5.40) L Hemoglobin 8.3 G/DL (12.0-16.0) L Hematocrit 25.6 % (37.0-47.0) L Mean Corpuscular Volume 94 FL (80-99) Mean Corpuscular Hemoglobin 30.2 PG (27.0-31.0) Mean Corpuscular Hemoglobin Concent 32.3 G/DL (32.0-36.0) Red Cell Distribution Width 15.5 % (11.6-14.8) H Platelet Count 424 K/UL (150-450) Mean Platelet Volume 6.5 FL (6.5-10.1) Neutrophils (%) (Auto) 79.4 % (45.0-75.0) H Lymphocytes (%) (Auto) 8.6 % (20.0-45.0) L Monocytes (%) (Auto) 9.6 % (1.0-10.0) Eosinophils (%) (Auto) 1.4 % (0.0-3.0) Basophils (%) (Auto) 1.0 % (0.0-2.0) Sodium Level 140 MMOL/L (136-145) Potassium Level 4.8 MMOL/L (3.5-5.1) Chloride Level 103 MMOL/L (98-107) Carbon Dioxide Level 27 MMOL/L (21-32) Anion Gap 10 mmol/L (5-15) Blood Urea Nitrogen 59 mg/dL (7-18) H Creatinine 7.4 MG/DL (0.55-1.30) H Estimat Glomerular Filtration Rate 5.3 mL/min (>60) Glucose Level 114 MG/DL (74-106) H Calcium Level 8.3 MG/DL (8.5-10.1) L Phosphorus Level 5.6 MG/DL (2.5-4.9) H Magnesium Level 2.2 MG/DL (1.8-2.4) Total Bilirubin 0.4 MG/DL (0.2-1.0) Aspartate Amino Transf (AST/SGOT) 17 U/L (15-37) Alanine Aminotransferase (ALT/SGPT) 16 U/L (12-78) Alkaline Phosphatase 174 U/L (46-116) H Total Protein 6.5 G/DL (6.4-8.2) Albumin 2.0 G/DL (3.4-5.0) L Globulin 4.5 g/dL Albumin/Globulin Ratio 0.4 (1.0-2.7) L Plan Problems: (1) NSTEMI (non-ST elevated myocardial infarction) (2) Acute encephalopathy (3) Abdominal distension Assessment & Plan: 85F recently found down here by EMS hypoglycemic, abnormal labs, abd distention noted. patient with minimal abd complaints. mild distention noted on exam but likely baseline seems to have been losing weight recently. bmi 23. alb noted passing flatus and had BM this afternoon bm wnl no n/v/f/c tolerating oral intake hold on imaging for now okay for diet will monitor clinically with physical exam thank you (4) Hypoglycemia (5) ESRD (end stage renal disease) on dialysis Scout Martinez Nov 04, 2020 14:35
--- NOTE | 2020-11-04 14:55 | NUR ---
NURSE NOTES: Reported patients multiple bouts of diarrhea to DO Lisseth. He ordered to hold Colace and miralax. Addendum: 11/04/20 at 1504 by Hakan Hernandez RN NURSE NOTES: DO also ordered to collect stool for C. diff
--- NOTE | 2020-11-04 15:24 | Pulmonology Progress Note ---
Subjective ROS Limited/Unobtainable: No Interval Events: s/p paracentesis Constitutional: Denies: fever HEENT: Repors: no symptoms Respiratory: Reports: no symptoms Cardiovascular: Reports: no symptoms Gastrointestinal/Abdominal: Reports: diarrhea; Denies: nausea, vomiting Allergies: Coded Allergies: No Known Allergies (Unverified , 11/02/20) Objective Last 24 Hour Vital Signs Date Time Temp Pulse Resp B/P (MAP) Pulse Ox O2 Delivery O2 Flow Rate FiO2 11/04/20 12:00 97.8 88 18 158/54 (88) 100 11/04/20 12:00 72 11/04/20 09:00 Nasal Cannula 2.0 11/04/20 08:46 86 158/51 11/04/20 08:00 97.9 86 18 158/51 (86) 100 11/04/20 08:00 71 11/04/20 04:00 67 11/04/20 04:00 97.9 68 20 154/48 (83) 100 11/04/20 00:00 75 11/04/20 00:00 98.4 73 19 153/50 (84) 100 11/03/20 21:00 Nasal Cannula 3.0 11/03/20 20:00 77 11/03/20 20:00 99.4 77 19 140/58 (85) 100 11/03/20 16:00 71 11/03/20 16:00 98.1 70 18 134/57 (82) 100 Intake and Output 11/03/20 11/04/20 19:00 07:00 Intake Total 720 ml 210 ml Output Total 450 ml Balance 270 ml 210 ml Intake Oral 720 ml 210 ml Output Urine Total 450 ml # Voids 2 # Bowel Movements 2 2 Objective 11/04/2020 multiple loose stools today; colace and miralax held 11/03/2020 pt sitting in bed saturating well on RA General Appearance: WD/WN, no acute distress HEENT: normocephalic, atraumatic Respiratory: decreased breath sounds Cardiovascular: normal peripheral pulses, normal rate, regular rhythm Abdomen: soft, non tender Laboratory Tests 11/03/20 16:54: POC Whole Blood Glucose 159H 11/04/20 05:55: POC Whole Blood Glucose [Pending] 11/04/20 06:37: White Blood Count 10.4, Red Blood Count 2.73L, Hemoglobin 8.3L, Hematocrit 25.6L , Mean Corpuscular Volume 94, Mean Corpuscular Hemoglobin 30.2, Mean Corpuscular Hemoglobin Concent 32.3, Red Cell Distribution Width 15.5H, Platelet Count 424, Mean Platelet Volume 6.5, Neutrophils (%) (Auto) 79.4H, Lymphocytes (%) (Auto) 8.6L, Monocytes (%) (Auto) 9.6, Eosinophils (%) (Auto) 1.4, Basophils (%) (Auto) 1.0, Sodium Level 140, Potassium Level 4.8, Chloride Level 103, Carbon Dioxide Level 27, Anion Gap 10, Blood Urea Nitrogen 59H, Creatinine 7.4H, Estimat Glomerular Filtration Rate 5.3, Glucose Level 114H, Calcium Level 8.3L, Phosphorus Level 5.6H, Magnesium Level 2.2, Total Bilirubin 0.4, Aspartate Amino Transf (AST/SGOT) 17, Alanine Aminotransferase (ALT/SGPT) 16, Alkaline Phosphatase 174H, Total Protein 6.5, Albumin 2.0L, Globulin 4.5, Albumin/Globuli n Ratio 0.4L Current Medications Medications (Trade) Dose Ordered Sig/Scooter Route PRN Reason Start Time Stop Time Status Last Admin Dose Admin Acetaminophen (Tylenol) 650 mg Q6H PRN ORAL For Pain 11/02/20 13:00 12/02/20 12:59 11/02/20 17:21 Amlodipine Besylate (Norvasc) 5 mg DAILY ORAL 11/02/20 09:00 12/02/20 08:59 11/04/20 08:46 Aspirin (ASA) 81 mg DAILY ORAL 11/03/20 09:00 12/18/20 08:59 11/04/20 08:45 Dextrose (Dextrose 50%) 25 ml Q30M PRN IV Hypoglycemia 11/02/20 12:15 01/31/21 12:14 Dextrose (Dextrose 50%) 50 ml Q30M PRN IV Hypoglycemia 11/02/20 12:15 01/31/21 12:14 Diphenhydramine HCl (Benadryl) 25 mg Q6H PRN ORAL Itching/Pruritis 11/02/20 12:30 12/02/20 12:29 Docusate Sodium (Colace) 100 mg EVERY 12 HOURS ORAL 11/02/20 21:00 12/02/20 20:59 11/02/20 21:37 Famotidine (Pepcid) 20 mg DAILY ORAL 11/03/20 09:00 02/01/21 08:59 11/04/20 08:45 Heparin Sodium (Porcine) (Heparin 5000 units/ml) 5,000 units EVERY 8 HOURS SUBQ 11/02/20 14:00 12/17/20 13:59 11/04/20 14:32 Hydralazine HCl (Apresoline) 10 mg Q4H PRN IV For SBP >160 11/02/20 13:00 01/31/21 12:59 Insulin Aspart (NovoLOG) BEFORE MEALS AND HS SUBQ 11/01/20 11:30 01/30/21 11:29 11/04/20 12:28 Piperacillin Sod/ Tazobactam Sod 2.25 gm/Sodium Chloride 110 ml @ 220 mls/hr Q8HR IVPB 11/02/20 14:00 11/09/20 13:59 11/04/20 14:30 Polyethylene Glycol (Miralax) 17 gm HSPRN PRN ORAL Constipation 11/02/20 21:00 12/02/20 20:59 Assessment/Plan Assessment/Plan Assessment/Plan 1. Large right pleural effusion. - s/p thoracentesis; 1.4L removed; follow-up CXR better 2. ESRD, on dialysis. 3. Hypoglycemia. 4. Diabetes mellitus. DISCUSSION: now s/p thoracentesis CXR improved We will follow carefully. The care for this patient was discussed with my supervising physician Time spent for this case was approximately 31 minutes The patient was seen and examined at bedside and all new and available data was reviewed in the patients chart. I agree with the above findings, impression, and plan. (Patient was seen earlier today. Signature timestamp does not reflect patient encounter time) Baldev Mccray MD Nov 04, 2020 15:24 Ty Mauro MD Nov 04, 2020 17:20
[2020-11-04 16:00] VITALS: BP 153/53
--- NOTE | 2020-11-04 17:55 | General Progress Note ---
Subjective Allergies: Coded Allergies: No Known Allergies (Unverified , 11/02/20) Subjective No acute events overnight per nursing. Patient feeling better however still on Oxygen. S/p thora with 1400cc removed. F/u CXR improved. No fever or chills. Review of systems: Constitutional: Denies: chills, diaphoresis, fever, malaise, weakness, other HEENT: Denies: eye pain, blurred vision, tearing, double vision, ear pain, ear discharge, nose pain, nose congestion, throat pain, throat swelling, mouth pain, mouth swelling, Cardiovascular: Denies: chest pain, edema, lightheadedness, palpitations, syncope, Respiratory: Denies: SOB at rest, sputum, stridor, wheezing, other + SOB Gastrointestinal/Abdominal: Denies: abdomen distended, abdominal pain, black stools, tarry stools, blood in stool, constipated, diarrhea, difficulty swallowing, nausea, poor appetite, poor fluid intake, rectal bleeding, vomiting, other Genitourinary: Denies: burning, discharge, frequency, flank pain, hematuria, incontinence, pain, urgency, other Neurologic/Psychiatric: Denies: anxiety, depressed, emotional problems, headache, numbness, paresthesia, pre-existing deficit, seizure, tingling, tremors, weakness, other Endocrine: Denies: excessive sweating, flushing, intolerance to cold, intolerance to heat, increased hunger, increased thirst, increased urine, unexplained weight gain, unexplained weight loss, other MSK: denies joint pains, swelling, stiffness Hematologic/Lymphatic: Denies: anemia, easy bleeding, easy bruising, other Objective Last 24 Hour Vital Signs Date Time Temp Pulse Resp B/P (MAP) Pulse Ox O2 Delivery O2 Flow Rate FiO2 11/04/20 16:00 99.8 87 18 153/53 (86) 100 11/04/20 16:00 87 11/04/20 12:00 97.8 88 18 158/54 (88) 100 11/04/20 12:00 72 11/04/20 09:00 Nasal Cannula 2.0 11/04/20 08:46 86 158/51 11/04/20 08:00 97.9 86 18 158/51 (86) 100 11/04/20 08:00 71 11/04/20 04:00 67 11/04/20 04:00 97.9 68 20 154/48 (83) 100 11/04/20 00:00 75 11/04/20 00:00 98.4 73 19 153/50 (84) 100 11/03/20 21:00 Nasal Cannula 3.0 11/03/20 20:00 77 11/03/20 20:00 99.4 77 19 140/58 (85) 100 Intake and Output 11/03/20 11/04/20 19:00 07:00 Intake Total 720 ml 210 ml Output Total 450 ml Balance 270 ml 210 ml Intake Oral 720 ml 210 ml Output Urine Total 450 ml # Voids 2 # Bowel Movements 2 2 Laboratory Tests 11/04/20 05:55: POC Whole Blood Glucose [Pending] 11/04/20 06:37: White Blood Count 10.4, Red Blood Count 2.73L, Hemoglobin 8.3L, Hematocrit 25.6L , Mean Corpuscular Volume 94, Mean Corpuscular Hemoglobin 30.2, Mean Corpuscular Hemoglobin Concent 32.3, Red Cell Distribution Width 15.5H, Platelet Count 424, Mean Platelet Volume 6.5, Neutrophils (%) (Auto) 79.4H, Lymphocytes (%) (Auto) 8.6L, Monocytes (%) (Auto) 9.6, Eosinophils (%) (Auto) 1.4, Basophils (%) (Auto) 1.0, Sodium Level 140, Potassium Level 4.8, Chloride Level 103, Carbon Dioxide Level 27, Anion Gap 10, Blood Urea Nitrogen 59H, Creatinine 7.4H, Estimat Glomerular Filtration Rate 5.3, Glucose Level 114H, Calcium Level 8.3L, Phosphorus Level 5.6H, Magnesium Level 2.2, Total Bilirubin 0.4, Aspartate Amino Transf (AST/SGOT) 17, Alanine Aminotransferase (ALT/SGPT) 16, Alkaline Phosphatase 174H, Total Protein 6.5, Albumin 2.0L, Globulin 4.5, Albumin/Globulin Ratio 0.4L Height (Feet): 5 Height (Inches): 5.00 Weight (Pounds): 140 Objective General: WDWN female in NAD, A&O x 4 on nasal cannula HEENT: Normocephalic cephalic atraumatic, pupils equal round reactive to light and accommodation, nares patent and no symmetrical, no tonsillar exudates, mucous membranes moist CV: Regular rate regular rhythm, no murmurs, rubs, or gallops Pulm: Lungs decreased breath sounds on right (improved). No wheezes, rhonchi, or rales GI: Soft, nontender, nondistended, bowel sounds present Neuro: CN 2-12 intact bilaterally, no focal signs. Ext: No lower extremity edema bilaterally Skin: no rashes lesions or ulcers Msk: Joints symmetrical in upper extremity and lower extremity bilaterally, no joint swelling. Lymph: No lymphadenopathy in upper extremity and lower extremity Assessment/Plan Status: stable Assessment/Plan: #Acute Metabolic Encephalopathy - improved #Hypoglycemia, likely due to insulin use in setting of infection and ESRD #Hypothermia Patient presented following BG 20s in the field. Now alert and oriented, though unable to state correct insulin dose. - CT Brain with no acute intracranial hemorrhage, or midline shift - IVF with D5W to keep BG 150-200 - Continue re-orienting techniques #Myalgias #UTI #Concern for possible aspiration pna #Right sided pleural effusion #acute hypoxic respiratory failure - BC x2 - UC with pyuria - Covid neg - Abx - s/p Azithromycin - Continue Zosyn, s/p ceftriaxone in ED - Pulm consult; Tirmizi - Thoracentesis 11/03: 1400 cc. F/u FLuid studies - ID consult : [place] #Type 2 NSTEMI, suspect demand - Aspirin in the ED, no active chest pain - EKG - Sinus bradycardia with RBBB - HR improving with rewarming - Cardiology consult: Dr. Camp #Elevated alk phos - check GGT: normal #Insulin Dependent T2DM - Hold insulin for now - ISS - Will need diabetic education #ESRD (//sun) - Nephrology consulted, appreciate recs #HLD - continue crestor Diet - Carb consistent Heparin sq 38 minutes spent on this encounter. Discussed with nephrology, ID, Pulm. 21 spent on counseling and care coordination. Time of note may not reflect time patient was seen. Alec Saleh D.O. Nov 04, 2020 17:55
--- NOTE | 2020-11-04 19:33 | NUR ---
NURSE HAND-OFF REPORT: Important Events on Shift:[Hemodialysis, held laxatives, C diff uncollected] Patient Status: [aaox4, stable, full code] Diet: [CCHO diet] Pending Orders: [N/A] Pending Results/Labs:[C Diff] Pending MD notification:[N/A] Latest Vital Signs: Temperature 99.8 , Pulse 87 , B/P 153 /53 , Respiratory Rate 18 , O2 SAT 100 , Nasal Cannula, O2 Flow Rate 2.0 . Vital Sign Comment: [] EKG Rhythm: SR w/ 1st degree AVB & BBB Rhythm change?: N MD Notified?: Tootie SNELL MD Response: No New Orders Received Latest Bolaños Fall Score: 30 Fall Risk: Medium Risk Safety Measures: Call light Within Reach, Bed Alarm Zone 1, Side Rails Side Rails x2, Bed position Low and Locked. Fall Precautions: Yellow Socks Yellow Gown Door Sign Patient Fall Education Report given to [ARTURO Sow].
[2020-11-04 20:00] VITALS: BP 150/60
[2020-11-05] VITALS: BP 155/60
[2020-11-05 04:00] VITALS: BP 151/62
[2020-11-05] MEDS: Zosyn 2.25gm in NS 110ML IVPB SCH ×3 (05:43→22:50)
[2020-11-05] MEDS: Heparin 5000 units/ml inj SUBQ SCH ×3 (05:45→22:05)
[2020-11-05] MEDS: NovoLOG Insulin Flexpen SUBQ SCH ×4 (05:58→21:57)
[2020-11-05 07:06] LABS: BASOPHILS % (AUTO) 0.6 % (0.0-2.0); EOSINOPHILS % (AUTO) 1.3 % (0.0-3.0); HEMATOCRIT 24.5 % (37.0-47.0); LYMPHOCYTES % (AUTO) 6.3 % (20.0-45.0); MEAN CORPUSCULAR VOLUME 94 FL (80-99); MONOCYTES % (AUTO) 8.6 % (1.0-10.0); NEUTROPHILS % (AUTO) 83.2 % (45.0-75.0); PLATELET COUNT 401 K/UL (150-450); RED BLOOD COUNT 2.62 M/UL (4.20-5.40); RED CELL DISTRIBUTION WIDTH 15.2 % (11.6-14.8); WHITE BLOOD COUNT 10.9 K/UL (4.8-10.8)
[2020-11-05 07:28] LABS: ALBUMIN 1.9 G/DL (3.4-5.0); ALBUMIN/GLOBULIN RATIO 0.4 (1.0-2.7); BILIRUBIN,TOTAL 0.3 MG/DL (0.2-1.0); CALCIUM 8.4 MG/DL (8.5-10.1); PHOSPHORUS 4.9 MG/DL (2.5-4.9); POTASSIUM 4.6 MMOL/L (3.5-5.1)
--- NOTE | 2020-11-05 07:48 | NUR ---
NURSE NOTES: Received report from ARTURO Fair. Pt stable, on 2LPM NC, unlabored and even respirations. pt sitting high fowlers eating breakfast. Pt has a BRYNN AV shunt noted. Pt skin intact. Pt bed low and locked, call light in reach and bed alarm on. Pt verbalized understanding to call for help.
--- NOTE | 2020-11-05 07:59 | NUR ---
NURSE HAND-OFF REPORT: Important Events on Shift: None Patient Status: stable Diet: CCHO Low Pending Orders: none Pending Results/Labs: AM labs Pending MD notification: none Latest Vital Signs: Temperature 98.1 , Pulse 75 , B/P 151 /62 , Respiratory Rate 17 , O2 SAT 97 , Nasal Cannula, O2 Flow Rate 2.0 . Vital Sign Comment: EKG Rhythm: SR w/ 1AVB, BBB Rhythm change?: N MD Notified?: Tootie SNELL MD Response: No New Orders Received Latest Bolaños Fall Score: 30 Fall Risk: Medium Risk Safety Measures: Call light Within Reach, Bed Alarm Zone 1, Side Rails Side Rails x2, Bed position Low and Locked. Fall Precautions: YES Yellow Socks YES Yellow Gown YES Door Sign YES Patient Fall Education YES Report given to ALEXYS Pickering RN.
[2020-11-05 08:00] VITALS: BP 152/66
--- NOTE | 2020-11-05 08:00 | NUR ---
CASE MANAGEMENT:REVIEW 11/05/20 SI: ACUTE METABOLIC ENCEPHALOPATHY HYPOGLYCEMIA. NSTEMI. ESRD 98.1 74 17 151/62 97% ON 2L/NC WBC+10.9 H/H-8.0/24.5 BUN+47 CR+6.0 GLUCOSE+182 IS: ASA PO QD HEPARIN SQ Q8HRS IV ZOSYN Q8HRS NORVASC PO QD SS INSULIN AC+HS : TELEMETRY STATUS DCP: FROM HOME PLAN: PT EVAL HOME SAFETY EVAL
--- NOTE | 2020-11-05 08:01 | Cardiology Progress Note ---
Assessment/Plan Status: stable Assessment/Plan Assessment/Plan: Metabolic Encephalopathy Hypoglycemia, Hypothermia Elevated troponin in setting of ESRD Bradycardia Right bundle branch block URI ESRD HLD PLAN: Continue supportive care Mild IV fluids Maintain HD Trend troponin, no indication for cardiac cath - no CP/EKG changes RBBB stable no indication for intervention Hold beta blockers Outpatient stress test when stable s/p Thoracentesis for moderate pleural effusion with improved breathing Continue crestor, check lipid panel Continue BP medications DASH diet Subjective Cardiovascular: Reports: no symptoms Respiratory: Reports: no symptoms Gastrointestinal/Abdominal: Reports: no symptoms Genitourinary: Reports: no symptoms Subjective No acute events, s/p thoracentesis with improved breathing, no arrhythmias Objective Last 24 Hour Vital Signs Date Time Temp Pulse Resp B/P (MAP) Pulse Ox O2 Delivery O2 Flow Rate FiO2 11/05/20 04:00 98.1 75 17 151/62 (91) 97 11/05/20 04:00 74 11/05/20 00:00 97.9 79 16 155/60 (91) 96 11/04/20 21:00 Nasal Cannula 2.0 11/04/20 20:00 98.9 76 17 150/60 (90) 95 11/04/20 20:00 78 11/04/20 16:00 99.8 87 18 153/53 (86) 100 11/04/20 16:00 87 11/04/20 12:00 97.8 88 18 158/54 (88) 100 11/04/20 12:00 72 11/04/20 09:00 Nasal Cannula 2.0 11/04/20 08:46 86 158/51 General Appearance: no apparent distress, alert EENT: PERRL/EOMI, normal ENT inspection, TMs normal, pharynx normal Neck: non-tender, normal alignment, supple Rhythm: NSR Cardiovascular: normal peripheral pulses, normal rate, regular rhythm Respiratory/Chest: chest wall non-tender, lungs clear Abdomen: normal bowel sounds, non tender, soft, no organomegaly, no mass Extremities: normal range of motion, non-tender, normal inspection Neurologic: gas dispenser II-XII grossly normal, no motor/sensory deficits Intake and Output 11/04/20 11/05/20 19:00 07:00 Intake Total 390 ml 100 ml Output Total 2000 ml Balance -1610 ml 100 ml Intake Oral 390 ml Other 100 ml Hemodialysis UF 2000 ml # Bowel Movements 1 Laboratory Tests Test 11/04/20 22:44 11/05/20 05:10 POC Whole Blood Glucose 207 MG/DL (74-106) H White Blood Count 10.9 K/UL (4.8-10.8) H Red Blood Count 2.62 M/UL (4.20-5.40) L Hemoglobin 8.0 G/DL (12.0-16.0) L Hematocrit 24.5 % (37.0-47.0) L Mean Corpuscular Volume 94 FL (80-99) Mean Corpuscular Hemoglobin 30.4 PG (27.0-31.0) Mean Corpuscular Hemoglobin Concent 32.5 G/DL (32.0-36.0) Red Cell Distribution Width 15.2 % (11.6-14.8) H Platelet Count 401 K/UL (150-450) Mean Platelet Volume 6.2 FL (6.5-10.1) L Neutrophils (%) (Auto) 83.2 % (45.0-75.0) H Lymphocytes (%) (Auto) 6.3 % (20.0-45.0) L Monocytes (%) (Auto) 8.6 % (1.0-10.0) Eosinophils (%) (Auto) 1.3 % (0.0-3.0) Basophils (%) (Auto) 0.6 % (0.0-2.0) Sodium Level 139 MMOL/L (136-145) Potassium Level 4.6 MMOL/L (3.5-5.1) Chloride Level 104 MMOL/L (98-107) Carbon Dioxide Level 26 MMOL/L (21-32) Anion Gap 9 mmol/L (5-15) Blood Urea Nitrogen 47 mg/dL (7-18) H Creatinine 6.0 MG/DL (0.55-1.30) H Estimat Glomerular Filtration Rate 6.7 mL/min (>60) Glucose Level 182 MG/DL (74-106) H Calcium Level 8.4 MG/DL (8.5-10.1) L Phosphorus Level 4.9 MG/DL (2.5-4.9) Magnesium Level 2.1 MG/DL (1.8-2.4) Total Bilirubin 0.3 MG/DL (0.2-1.0) Aspartate Amino Transf (AST/SGOT) 16 U/L (15-37) Alanine Aminotransferase (ALT/SGPT) 12 U/L (12-78) Alkaline Phosphatase 190 U/L (46-116) H Total Protein 6.3 G/DL (6.4-8.2) L Albumin 1.9 G/DL (3.4-5.0) L Globulin 4.4 g/dL Albumin/Globulin Ratio 0.4 (1.0-2.7) L Tab Camp MD Nov 05, 2020 08:01
[2020-11-05] MEDS: Aspirin Baby 81mg ORAL SCH (08:47)
[2020-11-05] MEDS: Docusate 100mg cap ORAL SCH ×2 (08:51→21:48)
--- NOTE | 2020-11-05 09:35 | Nephrology Progress Note ---
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- #Hypoglycemia #DM #Anemia #HTN HLD - HD tomorrow - increase amlodipine 10mg daily - monitor for volume overload - check iron panel-> adequate - add epo 4k TIW - check ferritin - check PTH - vitamin D - monitor hemoglobin time spent 35 min Subjective ROS Limited/Unobtainable: No Constitutional: Reports: weakness HEENT: Denies: no symptoms, eye pain, blurred vision, tearing, double vision, ear pain, ear discharge, nose pain, nose congestion, throat pain, throat swelling, mouth pain, mouth swelling, other Genitourinary: Denies: no symptoms, burning, discharge, frequency, flank pain, hematuria, incontinence, pain, urgency, other Neurologic/Psychiatric: Denies: no symptoms, anxiety, depressed, emotional problems, headache, numbness, paresthesia, pre-existing deficit, seizure, tingling, tremors, weakness, other Subjective HD yesterday BP remains elevated will increase amlodipine to 10mg daily Objective Objective Last 24 Hour Vital Signs Date Time Temp Pulse Resp B/P (MAP) Pulse Ox O2 Delivery O2 Flow Rate FiO2 11/05/20 08:47 78 152/66 11/05/20 08:00 97.7 78 18 152/66 (94) 94 11/05/20 04:00 98.1 75 17 151/62 (91) 97 11/05/20 04:00 74 11/05/20 00:00 97.9 79 16 155/60 (91) 96 11/04/20 21:00 Nasal Cannula 2.0 11/04/20 20:00 98.9 76 17 150/60 (90) 95 11/04/20 20:00 78 11/04/20 16:00 99.8 87 18 153/53 (86) 100 11/04/20 16:00 87 11/04/20 12:00 97.8 88 18 158/54 (88) 100 11/04/20 12:00 72 Intake and Output 11/04/20 11/05/20 19:00 07:00 Intake Total 390 ml 100 ml Output Total 2000 ml Balance -1610 ml 100 ml Intake Oral 390 ml Other 100 ml Hemodialysis UF 2000 ml # Bowel Movements 1 Laboratory Tests 11/04/20 22:44: POC Whole Blood Glucose 207H 11/05/20 05:10: White Blood Count 10.9H, Red Blood Count 2.62L, Hemoglobin 8.0L, Hematocrit 24.5L, Mean Corpuscular Volume 94, Mean Corpuscular Hemoglobin 30.4, Mean Corpuscular Hemoglobin Concent 32.5, Red Cell Distribution Width 15.2H, Platelet Count 401, Mean Platelet Volume 6.2L, Neutrophils (%) (Auto) 83.2H, Lymphocytes (%) (Auto) 6.3L, Monocytes (%) (Auto) 8.6, Eosinophils (%) (Auto) 1.3, Basophils (%) (Auto) 0.6, Sodium Level 139, Potassium Level 4.6, Chloride Level 104, Carbon Dioxide Level 26, Anion Gap 9, Blood Urea Nitrogen 47H, Creatinine 6.0H, Estimat Glomerular Filtration Rate 6.7, Glucose Level 182H, Hemoglobin A1c 7.8H, Calcium Level 8.4L, Phosphorus Level 4.9, Magnesium Level 2.1, Total Bilirubin 0.3, Aspartate Amino Transf (AST/SGOT) 16, Alanine Aminotransferase (ALT/SGPT) 12, Alkaline Phosphatase 190H, Total Protein 6.3L, Albumin 1.9L, Globulin 4.4, Albumin/Globulin Ratio 0.4L Height (Feet): 5 Height (Inches): 5.00 Weight (Pounds): 140 General Appearance: no apparent distress, alert EENT: PERRL/EOMI, normal ENT inspection Neck: non-tender, normal alignment Cardiovascular: normal peripheral pulses, normal rate, regular rhythm Respiratory/Chest: chest wall non-tender, lungs clear Abdomen: normal bowel sounds, non tender, soft Neurologic: alert, oriented x 3 Belinda Fraire M.D. Nov 05, 2020 09:35
--- NOTE | 2020-11-05 11:30 | NUR ---
NURSE NOTES: Called [facility] nephrology to confirm Pts HD appointment tmr. spoke with Peña, freight representative. appointment confirmed.
[2020-11-05 12:00] VITALS: BP 147/70
--- NOTE | 2020-11-05 12:35 | Surgery Progress Note ---
Surgery Progress Note Subjective Additional Comments leukocytosis anemia renal function noted on HD no n/v Objective Last 24 Hour Vital Signs Date Time Temp Pulse Resp B/P (MAP) Pulse Ox O2 Delivery O2 Flow Rate FiO2 11/05/20 09:00 Nasal Cannula 2.0 11/05/20 08:47 78 152/66 11/05/20 08:00 97.7 78 18 152/66 (94) 94 11/05/20 08:00 77 11/05/20 04:00 98.1 75 17 151/62 (91) 97 11/05/20 04:00 74 11/05/20 00:00 97.9 79 16 155/60 (91) 96 11/04/20 21:00 Nasal Cannula 2.0 11/04/20 20:00 98.9 76 17 150/60 (90) 95 11/04/20 20:00 78 11/04/20 16:00 99.8 87 18 153/53 (86) 100 11/04/20 16:00 87 I&O Intake and Output 11/04/20 11/05/20 19:00 07:00 Intake Total 390 ml 100 ml Output Total 2000 ml Balance -1610 ml 100 ml Intake Oral 390 ml Other 100 ml Hemodialysis UF 2000 ml # Bowel Movements 1 Dressing: saturated Cardiovascular: RSR Respiratory: decreased breath sounds Abdomen: non-tender, present bowel sounds Extremities: no edema, no tenderness, no cyanosis Laboratory Tests Test 11/04/20 22:44 11/05/20 05:10 11/05/20 11:45 11/05/20 11:56 POC Whole Blood Glucose 207 MG/DL (74-106) H Pending White Blood Count 10.9 K/UL (4.8-10.8) H Red Blood Count 2.62 M/UL (4.20-5.40) L Hemoglobin 8.0 G/DL (12.0-16.0) L Hematocrit 24.5 % (37.0-47.0) L Mean Corpuscular Volume 94 FL (80-99) Mean Corpuscular Hemoglobin 30.4 PG (27.0-31.0) Mean Corpuscular Hemoglobin Concent 32.5 G/DL (32.0-36.0) Red Cell Distribution Width 15.2 % (11.6-14.8) H Platelet Count 401 K/UL (150-450) Mean Platelet Volume 6.2 FL (6.5-10.1) L Neutrophils (%) (Auto) 83.2 % (45.0-75.0) H Lymphocytes (%) (Auto) 6.3 % (20.0-45.0) L Monocytes (%) (Auto) 8.6 % (1.0-10.0) Eosinophils (%) (Auto) 1.3 % (0.0-3.0) Basophils (%) (Auto) 0.6 % (0.0-2.0) Sodium Level 139 MMOL/L (136-145) Potassium Level 4.6 MMOL/L (3.5-5.1) Chloride Level 104 MMOL/L (98-107) Carbon Dioxide Level 26 MMOL/L (21-32) Anion Gap 9 mmol/L (5-15) Blood Urea Nitrogen 47 mg/dL (7-18) H Creatinine 6.0 MG/DL (0.55-1.30) H Estimat Glomerular Filtration Rate 6.7 mL/min (>60) Glucose Level 182 MG/DL (74-106) H Hemoglobin A1c 7.8 % (4.3-6.0) H Calcium Level 8.4 MG/DL (8.5-10.1) L Phosphorus Level 4.9 MG/DL (2.5-4.9) Magnesium Level 2.1 MG/DL (1.8-2.4) Total Bilirubin 0.3 MG/DL (0.2-1.0) Aspartate Amino Transf (AST/SGOT) 16 U/L (15-37) Alanine Aminotransferase (ALT/SGPT) 12 U/L (12-78) Alkaline Phosphatase 190 U/L (46-116) H Total Protein 6.3 G/DL (6.4-8.2) L Albumin 1.9 G/DL (3.4-5.0) L Globulin 4.4 g/dL Albumin/Globulin Ratio 0.4 (1.0-2.7) L Body Fluid Source Thoracentesis Body Fluid Volume 1 mL Body Fluid Appearance Slightly cloudy (Clear) Body Fluid RBC Pending Body Fluid Total Nucleated Cells Pending Body Fluid Polynuclear WBCs (%) Pending Body Fluid Mononuclear WBCs (%) Pending Body Fluid Mesothelial Cells (%) Pending Body Fluid Glucose Pending Body Fluid Total Protein Pending Body Fluid Lactate Dehydrogenase Pending Body Fluid Comment Pending Plan Problems: (1) NSTEMI (non-ST elevated myocardial infarction) (2) Acute encephalopathy (3) Abdominal distension Assessment & Plan: 85F recently found down here by EMS hypoglycemic, abnormal labs, abd distention noted. patient with minimal abd complaints. mild distention noted on exam but likely baseline seems to have been losing weight recently. bmi 23. alb noted passing flatus and had BM this afternoon bm wnl no n/v/f/c tolerating oral intake hold on imaging for now okay for diet will monitor clinically with physical exam thank you (4) Hypoglycemia (5) ESRD (end stage renal disease) on dialysis Scout Martinez Nov 05, 2020 12:35
--- NOTE | 2020-11-05 14:58 | NUR ---
P.T Note: P.T evaluation completed and tx initiated. Please refer to P.T evaluation for current functional status , POC and recommendation.
[2020-11-05 16:00] VITALS: BP_SYST 147; BP_SYST 153; BP_DIAS 63; BP_DIAS 70
--- NOTE | 2020-11-05 16:46 | Pulmonology Progress Note ---
Subjective ROS Limited/Unobtainable: No Interval Events: s/p thoracentesis Constitutional: Denies: fever HEENT: Repors: no symptoms Respiratory: Reports: no symptoms Cardiovascular: Reports: no symptoms Gastrointestinal/Abdominal: Reports: diarrhea; Denies: nausea, vomiting Allergies: Coded Allergies: No Known Allergies (Unverified , 11/02/20) Objective Last 24 Hour Vital Signs Date Time Temp Pulse Resp B/P (MAP) Pulse Ox O2 Delivery O2 Flow Rate FiO2 11/05/20 16:00 97.9 78 16 153/63 (93) 97 11/05/20 16:00 71 11/05/20 12:00 71 11/05/20 12:00 97.5 82 17 147/70 (95) 95 11/05/20 09:00 Nasal Cannula 2.0 11/05/20 08:47 78 152/66 11/05/20 08:00 97.7 78 18 152/66 (94) 94 11/05/20 08:00 77 11/05/20 04:00 98.1 75 17 151/62 (91) 97 11/05/20 04:00 74 11/05/20 00:00 97.9 79 16 155/60 (91) 96 11/04/20 21:00 Nasal Cannula 2.0 11/04/20 20:00 98.9 76 17 150/60 (90) 95 11/04/20 20:00 78 Intake and Output 11/04/20 11/05/20 19:00 07:00 Intake Total 390 ml 100 ml Output Total 2000 ml Balance -1610 ml 100 ml Intake Oral 390 ml Other 100 ml Hemodialysis UF 2000 ml # Bowel Movements 1 Objective 11/05 saturating 92-95% on 2 lpm NC 11/04/2020 multiple loose stools today; colace and miralax held 11/03/2020 pt sitting in bed saturating well on RA General Appearance: WD/WN, no acute distress HEENT: normocephalic, atraumatic Respiratory: decreased breath sounds Cardiovascular: normal peripheral pulses, normal rate, regular rhythm Abdomen: soft, non tender Laboratory Tests 11/04/20 22:44: POC Whole Blood Glucose 207H 11/05/20 05:10: White Blood Count 10.9H, Red Blood Count 2.62L, Hemoglobin 8.0L, Hematocrit 24.5L, Mean Corpuscular Volume 94, Mean Corpuscular Hemoglobin 30.4, Mean Corpuscular Hemoglobin Concent 32.5, Red Cell Distribution Width 15.2H, Platelet Count 401, Mean Platelet Volume 6.2L, Neutrophils (%) (Auto) 83.2H, Lymphocytes (%) (Auto) 6.3L, Monocytes (%) (Auto) 8.6, Eosinophils (%) (Auto) 1.3, Basophils (%) (Auto) 0.6, Sodium Level 139, Potassium Level 4.6, Chloride Level 104, Carbon Dioxide Level 26, Anion Gap 9, Blood Urea Nitrogen 47H, Creatinine 6.0H, Estimat Glomerular Filtration Rate 6.7, Glucose Level 182H, Hemoglobin A1c 7.8H, Calcium Level 8.4L, Phosphorus Level 4.9, Magnesium Level 2.1, Total Bilirubin 0.3, Aspartate Amino Transf (AST/SGOT) 16, Alanine Aminotransferase (ALT/SGPT) 12, Alkaline Phosphatase 190H, Total Protein 6.3L, Albumin 1.9L, Globulin 4.4, Albumin/Globulin Ratio 0.4L 11/05/20 11:45: Body Fluid Source Thoracentesis, Body Fluid Volume 1, Body Fluid Appearance Slightly cloudy, [place] [address], Body Fluid Total Nucleated Cells 50, Body Fluid Polynuclear WBCs (%) 8, Body Fluid Mononuclear WBCs (%) 89, Body Fluid Mesothelial Cells (%) 3, Body Fluid Glucose [Pending], Body Fluid Total Protein [Pending], Body Fluid Lactate Dehydrogenase [Pending], Body Fluid Comment 11/05/20 11:56: POC Whole Blood Glucose [Pending] 11/05/20 15:56: POC Whole Blood Glucose 185H Current Medications Medications (Trade) Dose Ordered Sig/Scooter Route PRN Reason Start Time Stop Time Status Last Admin Dose Admin Acetaminophen (Tylenol) 650 mg Q6H PRN ORAL For Pain 11/02/20 13:00 12/02/20 12:59 11/02/20 17:21 Amlodipine Besylate (Norvasc) 10 mg DAILY ORAL 11/06/20 09:00 12/06/20 08:59 Aspirin (ASA) 81 mg DAILY ORAL 11/03/20 09:00 12/18/20 08:59 11/05/20 08:47 Dextrose (Dextrose 50%) 25 ml Q30M PRN IV Hypoglycemia 11/02/20 12:15 01/31/21 12:14 Dextrose (Dextrose 50%) 50 ml Q30M PRN IV Hypoglycemia 11/02/20 12:15 01/31/21 12:14 Diphenhydramine HCl (Benadryl) 25 mg Q6H PRN ORAL Itching/Pruritis 11/02/20 12:30 12/02/20 12:29 Docusate Sodium (Colace) 100 mg EVERY 12 HOURS ORAL 11/02/20 21:00 12/02/20 20:59 11/02/20 21:37 Epoetin Feng (Epoetin Feng(ESRD on dialysis)) 4,000 unit SUN-SUN-SUN SUBQ 11/05/20 21:00 02/03/21 20:59 Famotidine (Pepcid) 20 mg DAILY ORAL 11/03/20 09:00 02/01/21 08:59 11/05/20 08:47 Heparin Sodium (Porcine) (Heparin 5000 units/ml) 5,000 units EVERY 8 HOURS SUBQ 11/02/20 14:00 12/17/20 13:59 11/05/20 14:16 Hydralazine HCl (Apresoline) 10 mg Q4H PRN IV For SBP >160 11/02/20 13:00 01/31/21 12:59 Insulin Aspart (NovoLOG) BEFORE MEALS AND HS SUBQ 11/01/20 11:30 01/30/21 11:29 11/05/20 16:03 Piperacillin Sod/ Tazobactam Sod 2.25 gm/Sodium Chloride 110 ml @ 220 mls/hr Q8HR IVPB 11/02/20 14:00 11/09/20 13:59 11/05/20 14:10 Polyethylene Glycol (Miralax) 17 gm HSPRN PRN ORAL Constipation 11/02/20 21:00 12/02/20 20:59 Assessment/Plan Assessment/Plan 1. Large right pleural effusion. - s/p thoracentesis; 1.4L removed; follow-up CXR better 2. ESRD, on dialysis. 3. Hx of hypoglycemia. 4. Diabetes mellitus. 5. Acute hypoxic respiratory failure, secondary to #1, #2 - now saturating 92-95% on 2 lpm NC, desaturates to 84% on room air - continue supplemental oxygen DISCUSSION: now s/p thoracentesis CXR improved We will follow carefully. The care for this patient was discussed with my supervising physician Time spent for this case was approximately 31 minutes Baldev Wright Nov 05, 2020 16:46
--- NOTE | 2020-11-05 17:32 | Infectious Diseases Prog Note ---
Assessment/Plan Assessment/Plan A) 1) complicated uti 2) possible pna - ? aspiration pna, ? cap 3) covid - 19 testing negative 4) esrd, hd, anemia, dm, htn, HLD, nstemi, cad, encephalopathy 5) allergies - nkda 6) fh-nc, sh-neg, mar noted, d/w RN 7) notes and records reviewed P) 1) zosyn - day # 5/ 2) monitor labs and chest x-ray 3) cultures noted 4) continue mgt/treatment per primary and consultants 5) will f/u Subjective Constitutional: Reports: fatigue; Denies: fever HEENT: Denies: congestion Respiratory: Denies: shortness of breath Cardiovascular: Denies: chest pain Gastrointestinal/Abdominal: Denies: nausea, vomiting, diarrhea Genitourinary: Denies: dysuria, hematuria, frequency Neurologic: Denies: headache Psychiatric: Denies: depression Skin: Denies: rash Hematologic: Denies: bleeding Musculoskeletal: Denies: pain Allergies: Coded Allergies: No Known Allergies (Unverified , 11/02/20) Objective Last 24 Hour Vital Signs Date Time Temp Pulse Resp B/P (MAP) Pulse Ox O2 Delivery O2 Flow Rate FiO2 11/05/20 16:00 97.9 78 16 153/63 (93) 97 11/05/20 16:00 71 11/05/20 12:00 71 11/05/20 12:00 97.5 82 17 147/70 (95) 95 11/05/20 09:00 Nasal Cannula 2.0 11/05/20 08:47 78 152/66 11/05/20 08:00 97.7 78 18 152/66 (94) 94 11/05/20 08:00 77 11/05/20 04:00 98.1 75 17 151/62 (91) 97 11/05/20 04:00 74 11/05/20 00:00 97.9 79 16 155/60 (91) 96 11/04/20 21:00 Nasal Cannula 2.0 11/04/20 20:00 98.9 76 17 150/60 (90) 95 11/04/20 20:00 78 Height (Feet): 5 Height (Inches): 5.00 Weight (Pounds): 140 General Appearance: no acute distress HEENT: normocephalic, atraumatic, anicteric, mucous membranes moist Respiratory/Chest: no accessory muscle use, crackles/rales, rhonchi - bilaterally Cardiovascular: normal rate, regular rhythm, no gallop/murmur Abdomen: normal bowel sounds, soft, non tender, no organomegaly, non distended Genitourinary: other - no cisneros Extremities: no cyanosis Skin: no rash Neurologic/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 Residual opacity at the lung base likely reflects residual pleural fluid, and/or pleural thickening and/or atelectasis. There is some consolidation of the right mid and lower lung as well, as well as there is mild generalized bilateral interstitial congestion. There is increasing pleural fluid on the left and increasing retrocardiac consolidation. No pneumothorax is demonstrated. The heart remains enlarged. Impression: Improved right pleural effusion, status post thoracentesis. No radiographically evident complication Increased smaller left pleural effusion Persistent interstitial edema Persistent right basilar opacity, likely combination of residual pleural fluid, atelectasis, and pleural thickening Microbiology Date/Time Source Procedure Growth Status 11/01/20 07:12 Rectum - Final NO CARBAPENEM-RESISTANT ENTEROBACTERI... Complete 11/01/20 07:12 Nasal Nares MRSA Culture - Final NO METHICILLIN RESISTANT STAPH AUREUS... Complete 11/01/20 06:10 Blood Blood Culture - Preliminary NO GROWTH AFTER 72 HOURS Resulted 11/01/20 04:44 Urine,Clean Catch Urine Culture - Final Mixed Urogenital Contaminants Complete Laboratory Tests Test 11/04/20 22:44 11/05/20 05:10 11/05/20 11:45 11/05/20 11:56 POC Whole Blood Glucose 207 MG/DL (74-106) H Pending White Blood Count 10.9 K/UL (4.8-10.8) H Red Blood Count 2.62 M/UL (4.20-5.40) L Hemoglobin 8.0 G/DL (12.0-16.0) L Hematocrit 24.5 % (37.0-47.0) L Mean Corpuscular Volume 94 FL (80-99) Mean Corpuscular Hemoglobin 30.4 PG (27.0-31.0) Mean Corpuscular Hemoglobin Concent 32.5 G/DL (32.0-36.0) Red Cell Distribution Width 15.2 % (11.6-14.8) H Platelet Count 401 K/UL (150-450) Mean Platelet Volume 6.2 FL (6.5-10.1) L Neutrophils (%) (Auto) 83.2 % (45.0-75.0) H Lymphocytes (%) (Auto) 6.3 % (20.0-45.0) L Monocytes (%) (Auto) 8.6 % (1.0-10.0) Eosinophils (%) (Auto) 1.3 % (0.0-3.0) Basophils (%) (Auto) 0.6 % (0.0-2.0) Sodium Level 139 MMOL/L (136-145) Potassium Level 4.6 MMOL/L (3.5-5.1) Chloride Level 104 MMOL/L (98-107) Carbon Dioxide Level 26 MMOL/L (21-32) Anion Gap 9 mmol/L (5-15) Blood Urea Nitrogen 47 mg/dL (7-18) H Creatinine 6.0 MG/DL (0.55-1.30) H Estimat Glomerular Filtration Rate 6.7 mL/min (>60) Glucose Level 182 MG/DL (74-106) H Hemoglobin A1c 7.8 % (4.3-6.0) H Calcium Level 8.4 MG/DL (8.5-10.1) L Phosphorus Level 4.9 MG/DL (2.5-4.9) Magnesium Level 2.1 MG/DL (1.8-2.4) Total Bilirubin 0.3 MG/DL (0.2-1.0) Aspartate Amino Transf (AST/SGOT) 16 U/L (15-37) Alanine Aminotransferase (ALT/SGPT) 12 U/L (12-78) Alkaline Phosphatase 190 U/L (46-116) H Total Protein 6.3 G/DL (6.4-8.2) L Albumin 1.9 G/DL (3.4-5.0) L Globulin 4.4 g/dL Albumin/Globulin Ratio 0.4 (1.0-2.7) L Body Fluid Source Thoracentesis Body Fluid Volume 1 mL Body Fluid Appearance Slightly cloudy (Clear) Body Fluid RBC 39242 /CUMM Body Fluid Total Nucleated Cells 50 /CUMM Body Fluid Polynuclear WBCs (%) 8 % Body Fluid Mononuclear WBCs (%) 89 % Body Fluid Mesothelial Cells (%) 3 % Body Fluid Glucose Pending Body Fluid Total Protein Pending Body Fluid Lactate Dehydrogenase Pending Body Fluid Comment Test 11/05/20 15:56 POC Whole Blood Glucose 185 MG/DL (74-106) H Current Medications Medications (Trade) Dose Ordered Sig/Scooter Route PRN Reason Start Time Stop Time Status Last Admin Dose Admin Acetaminophen (Tylenol) 650 mg Q6H PRN ORAL For Pain 11/02/20 13:00 12/02/20 12:59 11/02/20 17:21 Amlodipine Besylate (Norvasc) 10 mg DAILY ORAL 11/06/20 09:00 12/06/20 08:59 Aspirin (ASA) 81 mg DAILY ORAL 11/03/20 09:00 12/18/20 08:59 11/05/20 08:47 Dextrose (Dextrose 50%) 25 ml Q30M PRN IV Hypoglycemia 11/02/20 12:15 01/31/21 12:14 Dextrose (Dextrose 50%) 50 ml Q30M PRN IV Hypoglycemia 11/02/20 12:15 01/31/21 12:14 Diphenhydramine HCl (Benadryl) 25 mg Q6H PRN ORAL Itching/Pruritis 11/02/20 12:30 12/02/20 12:29 Docusate Sodium (Colace) 100 mg EVERY 12 HOURS ORAL 11/02/20 21:00 12/02/20 20:59 11/02/20 21:37 Epoetin Feng (Epoetin Feng(ESRD on dialysis)) 4,000 unit SUN-SUN-SUN SUBQ 11/05/20 21:00 02/03/21 20:59 Famotidine (Pepcid) 20 mg DAILY ORAL 11/03/20 09:00 02/01/21 08:59 11/05/20 08:47 Heparin Sodium (Porcine) (Heparin 5000 units/ml) 5,000 units EVERY 8 HOURS SUBQ 11/02/20 14:00 12/17/20 13:59 11/05/20 14:16 Hydralazine HCl (Apresoline) 10 mg Q4H PRN IV For SBP >160 11/02/20 13:00 01/31/21 12:59 Insulin Aspart (NovoLOG) BEFORE MEALS AND HS SUBQ 11/01/20 11:30 01/30/21 11:29 11/05/20 16:03 Piperacillin Sod/ Tazobactam Sod 2.25 gm/Sodium Chloride 110 ml @ 220 mls/hr Q8HR IVPB 11/02/20 14:00 11/09/20 13:59 11/05/20 14:10 Polyethylene Glycol (Miralax) 17 gm HSPRN PRN ORAL Constipation 11/02/20 21:00 12/02/20 20:59 Eliu Cortez MD Nov 05, 2020 17:32
--- NOTE | 2020-11-05 17:44 | NUR ---
NURSE NOTES: Called [facility] to inquire about WBC smear and Stool Cx. [facility] lab confirms they are able to use same stool sample from CDIF sample collected earlier.
--- NOTE | 2020-11-05 18:02 | NUR ---
NURSE HAND-OFF REPORT: Important Events on Shift: Pt diarrhea x2 awaiting CDIF results, if negative, notify jordyn to start immodium, hold docusate Patient Status: fc, stable Diet: ccho low Pending Orders: Pending Results/Labs: stool cx, wbc smear, cdif, thorcentesis- LDH, protein, gram stain, Pending MD notification: Latest Vital Signs: Temperature 97.9 , Pulse 78 , B/P 153 /63 , Respiratory Rate 16 , O2 SAT 97 , Nasal Cannula, O2 Flow Rate 2.0 . Vital Sign Comment: EKG Rhythm: SR w/ BBB Rhythm change?: N MD Notified?: N MD Response: No New Orders Received Latest Bolaños Fall Score: 30 Fall Risk: Medium Risk Safety Measures: Call light Within Reach, Bed Alarm Zone 1, Side Rails Side Rails x2, Bed position Low and Locked. Fall Precautions: Yellow Socks Yellow Gown Door Sign Patient Fall Education Report to be given Addendum: 11/05/20 at 1931 by Amna Woodward RN RN Report given to ARTURO Dean. Pt is stable.
--- NOTE | 2020-11-05 18:23 | General Progress Note ---
Subjective Allergies: Coded Allergies: No Known Allergies (Unverified , 11/02/20) Subjective No acute events overnight per nursing. Still on 2L nasal cannula. Glucose increasing. Endocrinology consulted. Still with diarrhea. C diff pending. No fever or chills. Review of systems: Constitutional: Denies: chills, diaphoresis, fever, malaise, weakness, other HEENT: Denies: eye pain, blurred vision, tearing, double vision, ear pain, ear discharge, nose pain, nose congestion, throat pain, throat swelling, mouth pain, mouth swelling, Cardiovascular: Denies: chest pain, edema, lightheadedness, palpitations, syncope, Respiratory: Denies: SOB at rest, sputum, stridor, wheezing, other + SOB (improved) Gastrointestinal/Abdominal: Denies: abdomen distended, abdominal pain, black stools, tarry stools, blood in stool, constipated, diarrhea, difficulty swallowing, nausea, poor appetite, poor fluid intake, rectal bleeding, vomiting, other Genitourinary: Denies: burning, discharge, frequency, flank pain, hematuria, incontinence, pain, urgency, other Neurologic/Psychiatric: Denies: anxiety, depressed, emotional problems, headache, numbness, paresthesia, pre-existing deficit, seizure, tingling, tremors, weakness, other Endocrine: Denies: excessive sweating, flushing, intolerance to cold, intolerance to heat, increased hunger, increased thirst, increased urine, unexplained weight gain, unexplained weight loss, other MSK: denies joint pains, swelling, stiffness Hematologic/Lymphatic: Denies: anemia, easy bleeding, easy bruising, other Objective Last 24 Hour Vital Signs Date Time Temp Pulse Resp B/P (MAP) Pulse Ox O2 Delivery O2 Flow Rate FiO2 11/05/20 16:00 97.9 78 16 153/63 (93) 97 11/05/20 16:00 71 11/05/20 12:00 71 11/05/20 12:00 97.5 82 17 147/70 (95) 95 11/05/20 09:00 Nasal Cannula 2.0 11/05/20 08:47 78 152/66 11/05/20 08:00 97.7 78 18 152/66 (94) 94 11/05/20 08:00 77 11/05/20 04:00 98.1 75 17 151/62 (91) 97 11/05/20 04:00 74 11/05/20 00:00 97.9 79 16 155/60 (91) 96 11/04/20 21:00 Nasal Cannula 2.0 11/04/20 20:00 98.9 76 17 150/60 (90) 95 11/04/20 20:00 78 Intake and Output 11/04/20 11/05/20 19:00 07:00 Intake Total 390 ml 100 ml Output Total 2000 ml Balance -1610 ml 100 ml Intake Oral 390 ml Other 100 ml Hemodialysis UF 2000 ml # Bowel Movements 1 Laboratory Tests 11/04/20 22:44: POC Whole Blood Glucose 207H 11/05/20 05:10: White Blood Count 10.9H, Red Blood Count 2.62L, Hemoglobin 8.0L, Hematocrit 24 .5L, Mean Corpuscular Volume 94, Mean Corpuscular Hemoglobin 30.4, Mean Corpuscular Hemoglobin Concent 32.5, Red Cell Distribution Width 15.2H, Platelet Count 401, Mean Platelet Volume 6.2L, Neutrophils (%) (Auto) 83.2H, Lymphocytes (%) (Auto) 6.3L, Monocytes (%) (Auto) 8.6, Eosinophils (%) (Auto) 1.3, Basophils (%) (Auto) 0.6, Sodium Level 139, Potassium Level 4.6, Chloride Level 104, Carbon Dioxide Level 26, Anion Gap 9, Blood Urea Nitrogen 47H, Creatinine 6.0H, Estimat Glomerular Filtration Rate 6.7, Glucose Level 182H, Hemoglobin A1c 7.8H, Calcium Level 8.4L, Phosphorus Level 4.9, Magnesium Level 2.1, Total Bilirubin 0.3, Aspartate Amino Transf (AST/SGOT) 16, Alanine Aminotransferase (ALT/SGPT) 12, Alkaline Phosphatase 190H, Total Protein 6.3L, Albumin 1.9L, Globulin 4.4, Albumin/Globulin Ratio 0.4L 11/05/20 11:45: Body Fluid Source Thoracentesis, Body Fluid Volume 1, Body Fluid Appearance Slightly cloudy, Body Fluid RBC [address], Body Fluid Total Nucleated Cells 50, Body Fluid Polynuclear WBCs (%) 8, Body Fluid Mononuclear WBCs (%) 89, Body Fluid Mesothelial Cells (%) 3, Body Fluid Glucose [Pending], Body Fluid Total Protein [Pending], Body Fluid Lactate Dehydrogenase [Pending], Body Fluid Comment 11/05/20 11:56: POC Whole Blood Glucose [Pending] 11/05/20 15:56: POC Whole Blood Glucose 185H Height (Feet): 5 Height (Inches): 5.00 Weight (Pounds): 140 Objective General: WDWN female in NAD, A&O x 4 on nasal cannula HEENT: Normocephalic cephalic atraumatic, pupils equal round reactive to light and accommodation, nares patent and no symmetrical, no tonsillar exudates, mucous membranes moist CV: Regular rate regular rhythm, no murmurs, rubs, or gallops Pulm: Lungs decreased breath sounds on right (improved). No wheezes, rhonchi, or rales GI: Soft, nontender, nondistended, bowel sounds present Neuro: CN 2-12 intact bilaterally, no focal signs. Ext: No lower extremity edema bilaterally Skin: no rashes lesions or ulcers Msk: Joints symmetrical in upper extremity and lower extremity bilaterally, no joint swelling. Lymph: No lymphadenopathy in upper extremity and lower extremity Assessment/Plan Status: stable Assessment/Plan: #Acute UTI #Concern for possible aspiration pna #Right sided pleural effusion #acute hypoxic respiratory failure #Acute Metabolic Encephalopathy due to hypoglycemia and infection as below - improved #Hypothermia - resolved Patient presented following BG 20s in the field. - CT Brain with no acute intracranial hemorrhage, or midline shift - BC x2: no growth - Covid neg - Abx - s/p Azithromycin - Continue Zosyn, s/p ceftriaxone in ED - Pulm consult; Tirmizi - Thoracentesis 11/03: 1400 cc. F/u Fluid studies - ID consult : [place] - PT/OT #Insulin Dependent T2DM #hypoglycemia - Hold insulin for now - ISS - Will need diabetic education - Endocrinology consult for better DM regimen at home: Dr. Barron - Patient takes varying doses of lantus. From 10 - 20 units - check A1C #Acute diarrhea - check C diff #Type 2 NSTEMI, suspect demand - Aspirin in the ED, no active chest pain - EKG - Sinus bradycardia with RBBB - HR improving with rewarming - Cardiology consult: Dr. Camp - > no intervention #Elevated alk phos - check GGT: normal #ESRD (/th/sat) - Nephrology consulted, appreciate recs #HLD - continue crestor Diet - Carb consistent Heparin sq 36 minutes spent on this encounter. Discussed with nephrology, ID, Pulm, endocrinology. 22 spent on counseling and care coordination. Time of note may not reflect time patient was seen. Alec Saleh D.O. Nov 05, 2020 18:23
--- NOTE | 2020-11-05 19:30 | NUR ---
NURSE NOTES: Lab called and said they were unable to run CDIF on Pts stool sample, d/t consistency. Will put in new order for CDIF, to be collected.
[2020-11-05 20:00] VITALS: BP 149/72
--- NOTE | 2020-11-05 20:00 | NUR ---
NURSE NOTES: RECEIVED PATIENT LYING IN BED, AWAKE, ALERT/ORIENTED TO PERSON/PLACE, REALITY ORIENTATION PROVIDED, DENIES PAIN, NO SIGNS AND SYMPTOMS OF ACUTE CARDIO RESPIRATORY DISTRESS/SHORTNESS OF BREATH, DENIES CHEST PAIN, NO PERIPHERAL EDEMA NOTED. 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 IV INTACT TO RIGHT AC/GAUGE 22, NO REDNESS/SWELLING NOTED. HD PATIENT-LEFT UPPER ARM AV SHUNT, DRESSING DRY AND INTACT/+BRUIT/THRILL. NO COMPLAINTS OF GI DISCOMFORT, NO N/V, BOWELS AUDIBLE. SIDE RAILS UP X3, BED IN LOWEST POSITION FOR SAFETY, ENCOURAGED PATIENT TO UTILIZE CALL LIGHT FOR ASSISTANCE, VERBALIZED UNDERSTANDING. CONTINUE WITH CURRENT PLAN OF CARE. NAD.
--- NOTE | 2020-11-05 21:43 | Neurology Progress Note ---
Interim History Interim History ROS Limited/Unobtainable: No Interim History remains confused and resp distres Objective Physical Exam Last Vital Signs Date Time Temp Pulse Resp B/P (MAP) Pulse Ox O2 Delivery O2 Flow Rate FiO2 11/05/20 16:00 97.9 78 16 153/63 (93) 97 11/05/20 09:00 Nasal Cannula 2.0 Laboratory Tests Test 11/04/20 22:44 11/05/20 05:10 11/05/20 11:45 11/05/20 11:56 POC Whole Blood Glucose 207 MG/DL (74-106) H Pending White Blood Count 10.9 K/UL (4.8-10.8) H Red Blood Count 2.62 M/UL (4.20-5.40) L Hemoglobin 8.0 G/DL (12.0-16.0) L Hematocrit 24.5 % (37.0-47.0) L Mean Corpuscular Volume 94 FL (80-99) Mean Corpuscular Hemoglobin 30.4 PG (27.0-31.0) Mean Corpuscular Hemoglobin Concent 32.5 G/DL (32.0-36.0) Red Cell Distribution Width 15.2 % (11.6-14.8) H Platelet Count 401 K/UL (150-450) Mean Platelet Volume 6.2 FL (6.5-10.1) L Neutrophils (%) (Auto) 83.2 % (45.0-75.0) H Lymphocytes (%) (Auto) 6.3 % (20.0-45.0) L Monocytes (%) (Auto) 8.6 % (1.0-10.0) Eosinophils (%) (Auto) 1.3 % (0.0-3.0) Basophils (%) (Auto) 0.6 % (0.0-2.0) Sodium Level 139 MMOL/L (136-145) Potassium Level 4.6 MMOL/L (3.5-5.1) Chloride Level 104 MMOL/L (98-107) Carbon Dioxide Level 26 MMOL/L (21-32) Anion Gap 9 mmol/L (5-15) Blood Urea Nitrogen 47 mg/dL (7-18) H Creatinine 6.0 MG/DL (0.55-1.30) H Estimat Glomerular Filtration Rate 6.7 mL/min (>60) Glucose Level 182 MG/DL (74-106) H Hemoglobin A1c 7.8 % (4.3-6.0) H Calcium Level 8.4 MG/DL (8.5-10.1) L Phosphorus Level 4.9 MG/DL (2.5-4.9) Magnesium Level 2.1 MG/DL (1.8-2.4) Total Bilirubin 0.3 MG/DL (0.2-1.0) Aspartate Amino Transf (AST/SGOT) 16 U/L (15-37) Alanine Aminotransferase (ALT/SGPT) 12 U/L (12-78) Alkaline Phosphatase 190 U/L (46-116) H Total Protein 6.3 G/DL (6.4-8.2) L Albumin 1.9 G/DL (3.4-5.0) L Globulin 4.4 g/dL Albumin/Globulin Ratio 0.4 (1.0-2.7) L Body Fluid Source Thoracentesis Body Fluid Volume 1 mL Body Fluid Appearance Slightly cloudy (Clear) Body Fluid RBC 32819 /CUMM Body Fluid Total Nucleated Cells 50 /CUMM Body Fluid Polynuclear WBCs (%) 8 % Body Fluid Mononuclear WBCs (%) 89 % Body Fluid Mesothelial Cells (%) 3 % Body Fluid Glucose Pending Body Fluid Total Protein Pending Body Fluid Lactate Dehydrogenase Pending Body Fluid Comment Test 11/05/20 15:56 POC Whole Blood Glucose 185 MG/DL (74-106) H Neurologic Exam Mental Status: awake Objective somnolent, confused withdraws all 4 nc at neck supple abd soft resp no distress Impression/Recommendations Problems: (1) NSTEMI (non-ST elevated myocardial infarction) (2) Acute encephalopathy (3) Abdominal distension (4) Hypoglycemia (5) ESRD (end stage renal disease) on dialysis Status: stable Diagnostic Impression ongoing metabolic encephalopathy, less likely vascular hold on mri for now cont delirium precautions medical support pt as able Nathaniel Doyle MD Nov 05, 2020 21:43
[2020-11-05] MEDS: Epoetin Alfa-EPBX(ESRD on dialysis)4000 units/ml vial SUBQ SCH (21:53)
[2020-11-06] VITALS: BP 151/45
[2020-11-06 04:21] VITALS: BP 152/62
[2020-11-06] MEDS: Heparin 5000 units/ml inj SUBQ SCH ×3 (06:00→22:56)
[2020-11-06] MEDS: NovoLOG Insulin Flexpen SUBQ SCH ×4 (06:12→20:38)
[2020-11-06] MEDS: Zosyn 2.25gm in NS 110ML IVPB SCH ×3 (06:21→21:46)
[2020-11-06 07:23] LABS: HEMATOCRIT 23.2 % (37.0-47.0); HEMOGLOBIN 7.7 G/DL (12.0-16.0); MEAN CORPUSCULAR VOLUME 92 FL (80-99); PLATELET COUNT 385 K/UL (150-450); RED BLOOD COUNT 2.52 M/UL (4.20-5.40); WHITE BLOOD COUNT 12.4 K/UL (4.8-10.8)
--- NOTE | 2020-11-06 07:30 | NUR ---
NURSE HAND-OFF REPORT: Important Events on Shift:[Patient had an episode of tachycardia in the 150s. Left a message to Dr. Camp. Patient has diarrhea, collected stool sample.] Patient Status: [Stable] Diet: [CCHO low] Pending Orders: [] Pending Results/Labs:[] Pending MD notification:[] Latest Vital Signs: Temperature 98.1 , Pulse 72 , B/P 152 /62 , Respiratory Rate 18 , O2 SAT 97 , Nasal Cannula, O2 Flow Rate 2.0 . Vital Sign Comment: [] EKG Rhythm: SR w/ BBB Rhythm change?: N MD Notified?: Y -Dr ALIS DONAHUE Response: No New Orders Received Latest Bolaños Fall Score: 30 Fall Risk: Medium Risk Safety Measures: Call light Within Reach, Bed Alarm Zone 1, Side Rails Side Rails x2, Bed position Low and Locked. Fall Precautions: Yellow Socks Yellow Gown Door Sign Patient Fall Education Report given to [ARTURO Obando].
[2020-11-06 07:58] LABS: CALCIUM 7.9 MG/DL (8.5-10.1); CREATININE 8.1 MG/DL (0.55-1.30); POTASSIUM 4.9 MMOL/L (3.5-5.1)
[2020-11-06 07:59] LABS: ALANINE AMINOTRANSFERASE 12 U/L (12-78); ALBUMIN 2.1 G/DL (3.4-5.0); ALKALINE PHOSPHATASE 185 U/L (46-116); ASPARTATE AMINO TRANSFERASE 17 U/L (15-37); BILIRUBIN,DIRECT 0.2 MG/DL (0.0-0.3); BILIRUBIN,TOTAL 0.4 MG/DL (0.2-1.0)
[2020-11-06 08:00] VITALS: BP 139/56
--- NOTE | 2020-11-06 08:40 | NUR ---
NURSE NOTES: Received patient report from ARTURO Lincoln. Patient shows no signs of distress or pain at the time. Patient is AO x4 awake and able to make needs known. IV is intact and patent. There are no signs of erythema, infiltration, or bleeding. Patient is on 2L nasal canula and shows no signs of respiratory distress. Bed is in the lowest position, call light is within reach, side rails up x3. Walker at bedside. Will continue to monitor.
[2020-11-06] MEDS: Docusate 100mg cap ORAL SCH (09:00)
[2020-11-06] MEDS: Aspirin Baby 81mg ORAL SCH (09:37)
--- NOTE | 2020-11-06 09:53 | Diagnostic Imaging Report ---
EXAM: XR Chest, 1 View CLINICAL HISTORY: INFECT TECHNIQUE: Frontal view of the chest. COMPARISON: 11/03/20 FINDINGS: Lungs: There is mild perihilar pulmonary edema. There are asymmetric infiltrates in the lung bases, right greater than left. This may represent atelectasis however superimposed pneumonia not excluded. Pleural space: There is been slight increase in moderate right pleural effusion which appears loculated in the lateral basilar pleural space. There is unchanged small left pleural effusion or depression. No pneumothorax. Heart: There is unchanged cardiomegaly. Mediastinum: Unremarkable. Bones/joints: Unremarkable. IMPRESSION: There is mild perihilar pulmonary edema. There are asymmetric infiltrates in the lung bases, right greater than left. This may represent atelectasis however superimposed pneumonia not excluded.
[2020-11-06] MEDS: sitaGLIPtin 25mg tab ORAL SCH (10:30)
--- NOTE | 2020-11-06 10:38 | NUR ---
RADIOLOGY DEPT., CHEST X-RAY DONE.-P.DYE
[2020-11-06 12:00] VITALS: BP 151/57
--- NOTE | 2020-11-06 12:49 | Pulmonology Progress Note ---
Subjective ROS Limited/Unobtainable: No Interval Events: s/p thoracentesis Constitutional: Reports: fatigue; Denies: fever HEENT: Repors: no symptoms Respiratory: Reports: no symptoms Cardiovascular: Reports: no symptoms Gastrointestinal/Abdominal: Reports: diarrhea; Denies: nausea, vomiting Psychiatric: Denies: depression Skin: Denies: rash Musculoskeletal: Denies: pain Allergies: Coded Allergies: No Known Allergies (Unverified , 11/02/20) Objective Last 24 Hour Vital Signs Date Time Temp Pulse Resp B/P (MAP) Pulse Ox O2 Delivery O2 Flow Rate FiO2 11/06/20 09:37 78 139/56 11/06/20 04:21 98.1 72 18 152/62 (92) 97 11/06/20 04:00 73 11/06/20 00:00 74 11/06/20 00:00 97.7 77 18 151/45 (80) 96 11/05/20 21:00 Nasal Cannula 2.0 11/05/20 20:00 72 11/05/20 20:00 98.0 84 18 149/72 (97) 96 11/05/20 16:00 97.9 78 16 153/63 (93) 97 11/05/20 16:00 71 l Intake and Output 11/05/20 11/06/20 19:00 07:00 Intake Total 800 ml 590 ml Balance 800 ml 590 ml Intake Oral 800 ml 480 ml IV Total 110 ml # Voids 4 # Bowel Movements 3 3 Objective 11/06 saturating well on 2 lpm NC 11/05 saturating 92-95% on 2 lpm NC 11/04/2020 multiple loose stools today; colace and miralax held 11/03/2020 pt sitting in bed saturating well on RA General Appearance: WD/WN, no acute distress HEENT: normocephalic, atraumatic Respiratory: decreased breath sounds Cardiovascular: normal peripheral pulses, normal rate, regular rhythm Abdomen: soft, non tender Microbiology Date/Time Source Procedure Growth Status 11/05/20 02:00 Rectum WBC Smear - Final Complete Laboratory Tests 11/05/20 15:56: POC Whole Blood Glucose 185H 11/06/20 06:12: POC Whole Blood Glucose 106 11/06/20 06:20: White Blood Count 12.4H, Red Blood Count 2.52L, Hemoglobin 7.7L, Hematocrit 23.2L, Mean Corpuscular Volume 92, Mean Corpuscular Hemoglobin 30.6, Mean Co rpuscular Hemoglobin Concent 33.4, Red Cell Distribution Width 15.0H, Platelet Count 385, Mean Platelet Volume 6.4L, Neutrophils (%) (Auto) , Lymphocytes (%) (Auto) , Monocytes (%) (Auto) , Eosinophils (%) (Auto) , Basophils (%) (Auto) , Differential Total Cells Counted 100, Neutrophils % (Manual) 80H, Lymphocytes % (Manual) 9L, Monocytes % (Manual) 10, Eosinophils % (Manual) 1, Basophils % (Manual) 0, Band Neutrophils 0, Platelet Estimate Adequate, Platelet Morphology Normal, Hypochromasia 1+, Anisocytosis 1+, Sodium Level 140, Potassium Level 4.9, Chloride Level 104, Carbon Dioxide Level 25, Anion Gap 11, Blood Urea Nitrogen 66H, Creatinine 8.1H, Estimat Glomerular Filtration Rate 4.7, Glucose Level 118H, Calcium Level 7.9L, Phosphorus Level 6.2H, Magnesium Level 2.2, Total Bilirubin 0.4, Direct Bilirubin 0.2, Aspartate Amino Transf (AST/SGOT) 17, Alanine Aminotransferase (ALT/SGPT) 12, Alkaline Phosphatase 185H, Lactate Dehyd rogenase 151, Total Protein 5.9L, Albumin 2.1L Current Medications Medications (Trade) Dose Ordered Sig/Scooter Route PRN Reason Start Time Stop Time Status Last Admin Dose Admin Acetaminophen (Tylenol) 650 mg Q6H PRN ORAL For Pain 11/02/20 13:00 12/02/20 12:59 11/02/20 17:21 Amlodipine Besylate (Norvasc) 10 mg DAILY ORAL 11/06/20 09:00 12/06/20 08:59 11/06/20 09:37 Aspirin (ASA) 81 mg DAILY ORAL 11/03/20 09:00 12/18/20 08:59 11/06/20 09:37 Dextrose (Dextrose 50%) 25 ml Q30M PRN IV Hypoglycemia 11/02/20 12:15 01/31/21 12:14 Dextrose (Dextrose 50%) 50 ml Q30M PRN IV Hypoglycemia 11/02/20 12:15 01/31/21 12:14 Diphenhydramine HCl (Benadryl) 25 mg Q6H PRN ORAL Itching/Pruritis 11/02/20 12:30 12/02/20 12:29 Epoetin Feng (Epoetin Feng(ESRD on dialysis)) 4,000 unit SUN-SUN-SUN SUBQ 11/05/20 21:00 02/03/21 20:59 11/05/20 21:53 Famotidine (Pepcid) 20 mg DAILY ORAL 11/03/20 09:00 02/01/21 08:59 11/06/20 09:37 Heparin Sodium (Porcine) (Heparin 5000 units/ml) 5,000 units EVERY 8 HOURS SUBQ 11/02/20 14:00 12/17/20 13:59 11/05/20 22:05 Hydralazine HCl (Apresoline) 10 mg Q4H PRN IV For SBP >160 11/02/20 13:00 01/31/21 12:59 Insulin Aspart (NovoLOG) BEFORE MEALS AND HS SUBQ 11/01/20 11:30 01/30/21 11:29 11/06/20 12:16 Piperacillin Sod/ Tazobactam Sod 2.25 gm/Sodium Chloride 110 ml @ 220 mls/hr Q8HR IVPB 11/02/20 14:00 11/09/20 13:59 11/06/20 06:21 Polyethylene Glycol (Miralax) 17 gm HSPRN PRN ORAL Constipation 11/02/20 21:00 12/02/20 20:59 Sitagliptin Phosphate (Januvia) 25 mg ACBREAKFAST ORAL 11/06/20 10:30 12/06/20 10:29 Assessment/Plan Assessment/Plan 1. Large right pleural effusion. - s/p thoracentesis; 1.4L removed; follow-up CXR better - CXR 11/06 slight increase in moderate right pleural effusion 2. ESRD, on dialysis. - due for dialysis today 3. Hx of hypoglycemia. 4. Diabetes mellitus. - on glucose-lowering agents per Dr. Barron 5. Acute hypoxic respiratory failure, secondary to #1, #2 - now saturating well on 2 lpm NC, desaturates to 84% on room air - continue supplemental oxygen 6. Acute diarrhea - C diff result pending DISCUSSION: s/p thoracentesis Recent CXR shows slight increase in moderate right pleural effusion We will follow carefully. The care for this patient was discussed with my supervising physician Time spent for this case was approximately 31 minutes Baldev Wright Nov 06, 2020 12:49 Ty Mauro MD Nov 06, 2020 16:35
--- NOTE | 2020-11-06 15:30 | Consultation ---
DATE OF CONSULTATION: 11/06/2020 ENDOCRINOLOGY CONSULTATION CONSULTING PHYSICIAN: Gunnar Barron MD REASON FOR CONSULTATION: Hypoglycemia and diabetes control. HISTORY OF PRESENT ILLNESS: The patient is an 85-year-old female with history of end-stage renal disease and diabetes on insulin Lantus as an outpatient. She was found down and unresponsive. She was hypoglycemic and admitted to the hospital for observation and treatment. I was called to manage diabetes. PAST MEDICAL HISTORY: 1. End-stage renal disease, on hemodialysis. 2. Diabetes. MEDICATIONS: Reviewed and reconciled. ALLERGIES TO MEDICATIONS: None. FAMILY HISTORY: Noncontributory. SOCIAL HISTORY: No smoking, alcohol, or drug use. LABORATORY DATA: WBC 12.4, hemoglobin 7.7, hematocrit 23.2, platelet of 385,000. Sodium 140, potassium 4.9, chloride 104, bicarb 25, BUN 36, creatinine 8.1, glucose of 118, calcium 7.9. TSH 2.2. PHYSICAL EXAMINATION: VITAL SIGNS: Blood pressure is 139/56, pulse of 78, temperature 98.1. HEENT: Pupils are equal and reactive to light. Sclerae are anicteric. NECK: No JVD. LUNGS: Clear. HEART: Regular rate and rhythm. ABDOMEN: Positive bowel sounds. EXTREMITIES: Lower extremity, no clubbing, cyanosis, or edema. DIAGNOSES: 1. End-stage renal disease, on dialysis. 2. Diabetes, out of control. 3. Hypoglycemia. PLAN: 1. I will hold off on long-acting insulin. 2. Start Januvia 25 mg daily. 3. Continue NovoLog sliding scale before meals and at bedtime. 4. We will make an attempt to control the patient's diabetes without insulin to reduce the risk of hypoglycemia. 5. I will follow during hospital stay. Thank you for the courtesy of this consultation. Gunnar Barron M.D. DR: ARTURO/steph JOB#: [id number] CC: TROY
--- NOTE | 2020-11-06 15:44 | Neurology Progress Note ---
Interim History Interim History ROS Limited/Unobtainable: No Interim History much improved today, ao x 2 Objective Physical Exam Last Vital Signs Date Time Temp Pulse Resp B/P (MAP) Pulse Ox O2 Delivery O2 Flow Rate FiO2 11/06/20 12:00 73 11/06/20 12:00 97.7 20 151/57 (88) 98 11/06/20 09:00 Nasal Cannula 2.0 Laboratory Tests Test 11/05/20 15:56 11/06/20 06:12 11/06/20 06:20 POC Whole Blood Glucose 185 MG/DL (74-106) H 106 MG/DL (74-106) White Blood Count 12.4 K/UL (4.8-10.8) H Red Blood Count 2.52 M/UL (4.20-5.40) L Hemoglobin 7.7 G/DL (12.0-16.0) L Hematocrit 23.2 % (37.0-47.0) L Mean Corpuscular Volume 92 FL (80-99) Mean Corpuscular Hemoglobin 30.6 PG (27.0-31.0) Mean Corpuscular Hemoglobin Concent 33.4 G/DL (32.0-36.0) Red Cell Distribution Width 15.0 % (11.6-14.8) H Platelet Count 385 K/UL (150-450) Mean Platelet Volume 6.4 FL (6.5-10.1) L Neutrophils (%) (Auto) % (45.0-75.0) Lymphocytes (%) (Auto) % (20.0-45.0) Monocytes (%) (Auto) % (1.0-10.0) Eosinophils (%) (Auto) % (0.0-3.0) Basophils (%) (Auto) % (0.0-2.0) Differential Total Cells Counted 100 Neutrophils % (Manual) 80 % (45-75) H Lymphocytes % (Manual) 9 % (20-45) L Monocytes % (Manual) 10 % (1-10) Eosinophils % (Manual) 1 % (0-3) Basophils % (Manual) 0 % (0-2) Band Neutrophils 0 % (0-8) Platelet Estimate Adequate Platelet Morphology Normal Hypochromasia 1+ Anisocytosis 1+ Sodium Level 140 MMOL/L (136-145) Potassium Level 4.9 MMOL/L (3.5-5.1) Chloride Level 104 MMOL/L (98-107) Carbon Dioxide Level 25 MMOL/L (21-32) Anion Gap 11 mmol/L (5-15) Blood Urea Nitrogen 66 mg/dL (7-18) H Creatinine 8.1 MG/DL (0.55-1.30) H Estimat Glomerular Filtration Rate 4.7 mL/min (>60) Glucose Level 118 MG/DL (74-106) H Calcium Level 7.9 MG/DL (8.5-10.1) L Phosphorus Level 6.2 MG/DL (2.5-4.9) H Magnesium Level 2.2 MG/DL (1.8-2.4) Total Bilirubin 0.4 MG/DL (0.2-1.0) Direct Bilirubin 0.2 MG/DL (0.0-0.3) Aspartate Amino Transf (AST/SGOT) 17 U/L (15-37) Alanine Aminotransferase (ALT/SGPT) 12 U/L (12-78) Alkaline Phosphatase 185 U/L (46-116) H Lactate Dehydrogenase 151 U/L (81-234) Total Protein 5.9 G/DL (6.4-8.2) L Albumin 2.1 G/DL (3.4-5.0) L Neurologic Exam Mental Status: awake Objective ao x 2 antigravity all 4 nc at neck supple abd soft resp no distress Impression/Recommendations Problems: (1) NSTEMI (non-ST elevated myocardial infarction) (2) Acute encephalopathy (3) Abdominal distension (4) Hypoglycemia (5) ESRD (end stage renal disease) on dialysis Status: stable Diagnostic Impression improved metabolic encephalopathy, less likely vascular hold on mri for now cont delirium precautions medical support pt ot has stairs at home Nathaniel Doyle MD Nov 06, 2020 15:44
[2020-11-06 16:00] VITALS: BP 143/71
--- NOTE | 2020-11-06 17:10 | Nephrology Progress Note ---
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- #Hypoglycemia #DM #Anemia #HTN HLD - HD today - increase amlodipine 10mg daily - monitor for volume overload - check iron panel-> adequate - add epo 4k TIW - check ferritin - check PTH - vitamin D - monitor hemoglobin time spent 35 min Subjective ROS Limited/Unobtainable: No Constitutional: Reports: weakness HEENT: Denies: no symptoms, eye pain, blurred vision, tearing, double vision, ear pain, ear discharge, nose pain, nose congestion, throat pain, throat swelling, mouth pain, mouth swelling, other Genitourinary: Denies: no symptoms, burning, discharge, frequency, flank pain, hematuria, incontinence, pain, urgency, other Neurologic/Psychiatric: Denies: no symptoms, anxiety, depressed, emotional problems, headache, numbness, paresthesia, pre-existing deficit, seizure, tingling, tremors, weakness, other Subjective HD today BP remains elevated will increase amlodipine to 10mg daily Objective Objective Last 24 Hour Vital Signs Date Time Temp Pulse Resp B/P (MAP) Pulse Ox O2 Delivery O2 Flow Rate FiO2 11/06/20 16:00 98.1 77 20 143/71 (95) 94 11/06/20 12:00 73 11/06/20 12:00 97.7 74 20 151/57 (88) 98 11/06/20 09:37 78 139/56 11/06/20 09:00 Nasal Cannula 2.0 11/06/20 08:00 97.5 78 20 139/56 (83) 95 11/06/20 08:00 79 11/06/20 04:21 98.1 72 18 152/62 (92) 97 11/06/20 04:00 73 11/06/20 00:00 74 11/06/20 00:00 97.7 77 18 151/45 (80) 96 11/05/20 21:00 Nasal Cannula 2.0 11/05/20 20:00 72 11/05/20 20:00 98.0 84 18 149/72 (97) 96 Intake and Output 11/05/20 11/06/20 19:00 07:00 Intake Total 800 ml 590 ml Balance 800 ml 590 ml Intake Oral 800 ml 480 ml IV Total 110 ml # Voids 4 # Bowel Movements 3 3 Laboratory Tests 12/19/20 06:12: POC Whole Blood Glucose 106 11/06/20 06:20: White Blood Count 12.4H, Red Blood Count 2.52L, Hemoglobin 7.7L, Hematocrit 23.2L, Mean Corpuscular Volume 92, Mean Corpuscular Hemoglobin 30.6, Mean Corpuscular Hemoglobin Concent 33.4, Red Cell Distribution Width 15.0H, Platelet Count 385, Mean Platelet Volume 6.4L, Neutrophils (%) (Auto) , Lymphocytes (%) (Auto) , Monocytes (%) (Auto) , Eosinophils (%) (Auto) , Basophils (%) (Auto) , Differential Total Cells Counted 100, Neutrophils % (Manual) 80H, Lymphocytes % (Manual) 9L, Monocytes % (Manual) 10, Eosinophils % (Manual) 1, Basophils % (Manual) 0, Band Neutrophils 0, Platelet Estimate Adequate, Platelet Morphology Normal, Hypochromasia 1+, Anisocytosis 1+, Sodium Level 140, Potassium Level 4.9, Chloride Level 104, Carbon Dioxide Level 25, Anion Gap 11, Blood Urea Nitrogen 66H, Creatinine 8.1H, Estimat Glomerular Filtration Rate 4.7, Glucose Level 118H, Calcium Level 7.9L, Phosphorus Level 6.2H, Magnesium Level 2.2, Total Bilirubin 0.4, Direct Bilirubin 0.2, Aspartate Amino Transf (AST/SGOT) 17, Alanine Aminotransferase (ALT/SGPT) 12, Alkaline Phosphatase 185H, Lactate Dehydrogenase 151, Total Protein 5.9L, Albumin 2.1L Height (Feet): 5 Height (Inches): 5.00 Weight (Pounds): 140 Belinda Fraire M.D. Nov 06, 2020 17:10
--- NOTE | 2020-11-06 17:57 | Surgery Progress Note ---
Surgery Progress Note Subjective Additional Comments worsening leukocytosis anemia labs noted exam stable dressings going well Objective Last 24 Hour Vital Signs Date Time Temp Pulse Resp B/P (MAP) Pulse Ox O2 Delivery O2 Flow Rate FiO2 11/06/20 16:00 90 11/06/20 16:00 98.1 77 20 143/71 (95) 94 11/06/20 12:00 73 11/06/20 12:00 97.7 74 20 151/57 (88) 98 11/06/20 09:37 78 139/56 11/06/20 09:00 Nasal Cannula 2.0 11/06/20 08:00 97.5 78 20 139/56 (83) 95 11/06/20 08:00 79 11/06/20 04:21 98.1 72 18 152/62 (92) 97 11/06/20 04:00 73 11/06/20 00:00 74 11/06/20 00:00 97.7 77 18 151/45 (80) 96 11/05/20 21:00 Nasal Cannula 2.0 11/05/20 20:00 72 11/05/20 20:00 98.0 84 18 149/72 (97) 96 I&O Intake and Output 11/05/20 11/06/20 19:00 07:00 Intake Total 800 ml 590 ml Balance 800 ml 590 ml Intake Oral 800 ml 480 ml IV Total 110 ml # Voids 4 # Bowel Movements 3 3 Dressing: saturated Cardiovascular: RSR Respiratory: decreased breath sounds Abdomen: non-tender, present bowel sounds, non-distended Extremities: no edema, no tenderness, no cyanosis Laboratory Tests Test 11/06/20 06:12 11/06/20 06:20 POC Whole Blood Glucose 106 MG/DL (74-106) White Blood Count 12.4 K/UL (4.8-10.8) H Red Blood Count 2.52 M/UL (4.20-5.40) L Hemoglobin 7.7 G/DL (12.0-16.0) L Hematocrit 23.2 % (37.0-47.0) L Mean Corpuscular Volume 92 FL (80-99) Mean Corpuscular Hemoglobin 30.6 PG (27.0-31.0) Mean Corpuscular Hemoglobin Concent 33.4 G/DL (32.0-36.0) Red Cell Distribution Width 15.0 % (11.6-14.8) H Platelet Count 385 K/UL (150-450) Mean Platelet Volume 6.4 FL (6.5-10.1) L Neutrophils (%) (Auto) % (45.0-75.0) Lymphocytes (%) (Auto) % (20.0-45.0) Monocytes (%) (Auto) % (1.0-10.0) Eosinophils (%) (Auto) % (0.0-3.0) Basophils (%) (Auto) % (0.0-2.0) Differential Total Cells Counted 100 Neutrophils % (Manual) 80 % (45-75) H Lymphocytes % (Manual) 9 % (20-45) L Monocytes % (Manual) 10 % (1-10) Eosinophils % (Manual) 1 % (0-3) Basophils % (Manual) 0 % (0-2) Band Neutrophils 0 % (0-8) Platelet Estimate Adequate Platelet Morphology Normal Hypochromasia 1+ Anisocytosis 1+ Sodium Level 140 MMOL/L (136-145) Potassium Level 4.9 MMOL/L (3.5-5.1) Chloride Level 104 MMOL/L (98-107) Carbon Dioxide Level 25 MMOL/L (21-32) Anion Gap 11 mmol/L (5-15) Blood Urea Nitrogen 66 mg/dL (7-18) H Creatinine 8.1 MG/DL (0.55-1.30) H Estimat Glomerular Filtration Rate 4.7 mL/min (>60) Glucose Level 118 MG/DL (74-106) H Calcium Level 7.9 MG/DL (8.5-10.1) L Phosphorus Level 6.2 MG/DL (2.5-4.9) H Magnesium Level 2.2 MG/DL (1.8-2.4) Total Bilirubin 0.4 MG/DL (0.2-1.0) Direct Bilirubin 0.2 MG/DL (0.0-0.3) Aspartate Amino Transf (AST/SGOT) 17 U/L (15-37) Alanine Aminotransferase (ALT/SGPT) 12 U/L (12-78) Alkaline Phosphatase 185 U/L (46-116) H Lactate Dehydrogenase 151 U/L (81-234) Total Protein 5.9 G/DL (6.4-8.2) L Albumin 2.1 G/DL (3.4-5.0) L Plan Problems: (1) NSTEMI (non-ST elevated myocardial infarction) (2) Acute encephalopathy (3) Abdominal distension Assessment & Plan: 85F recently found down here by EMS hypoglycemic, abnormal labs, abd distention noted. patient with minimal abd complaints. mild distention noted on exam but likely baseline seems to have been losing weight recently. bmi 23. alb noted passing flatus and had BM this afternoon bm wnl no n/v/f/c tolerating oral intake hold on imaging for now okay for diet will monitor clinically with physical exam thank you (4) Hypoglycemia (5) ESRD (end stage renal disease) on dialysis Scout Martinez Nov 06, 2020 17:57
--- NOTE | 2020-11-06 18:59 | General Progress Note ---
Subjective Allergies: Coded Allergies: No Known Allergies (Unverified , 11/02/20) Subjective No acute events overnight per nursing. Continues to require supplemental oxygen of 2 L. 6 loose bowel movements. C. difficile still pending. Patient with uptrending white count. Feeling more tired today. Denies chest pain shortness of breath cough fever or chills Tele: + SVT overnight to 130-140s. Asymptomatic, denies chest pain or SOB or palpitations. Cardiology aware Review of systems: Constitutional: Denies: chills, diaphoresis, fever, malaise, weakness, + fatigue HEENT: Denies: eye pain, blurred vision, double vision, ear pain, nose pain, throat pain, Cardiovascular: Denies: chest pain, edema, lightheadedness, palpitations Respiratory: Denies: cough, orthopnea, shortness of breath, SOB with excertion, SOB at rest, Gastrointestinal/Abdominal: Denies: abdominal pain, black stools, blood in stool, constipation, diarrhea, nausea, poor fluid intake vomiting, other Genitourinary: Denies: burning, discharge, frequency, Neurologic/Psychiatric: Denies: headache, numbness, paresthesia, new weakness, other Endocrine: Denies: excessive sweating, flushing, intolerance to cold, MSK: denies joint pains, swelling, stiffness Hematologic/Lymphatic: Denies: anemia, easy bleeding, easy bruising, Objective Last 24 Hour Vital Signs Date Time Temp Pulse Resp B/P (MAP) Pulse Ox O2 Delivery O2 Flow Rate FiO2 11/06/20 16:00 90 11/06/20 16:00 98.1 77 20 143/71 (95) 94 11/06/20 12:00 73 11/06/20 12:00 97.7 74 20 151/57 (88) 98 11/06/20 09:37 78 139/56 11/06/20 09:00 Nasal Cannula 2.0 11/06/20 08:00 97.5 78 20 139/56 (83) 95 11/06/20 08:00 79 11/06/20 04:21 98.1 72 18 152/62 (92) 97 11/06/20 04:00 73 11/06/20 00:00 74 11/06/20 00:00 97.7 77 18 151/45 (80) 96 11/05/20 21:00 Nasal Cannula 2.0 11/05/20 20:00 72 11/05/20 20:00 98.0 84 18 149/72 (97) 96 Intake and Output 11/05/20 11/06/20 19:00 07:00 Intake Total 800 ml 590 ml Balance 800 ml 590 ml Intake Oral 800 ml 480 ml IV Total 110 ml # Voids 4 # Bowel Movements 3 3 Laboratory Tests 11/06/20 06:12: POC Whole Blood Glucose 106 11/06/20 06:20: White Blood Count 12.4H, Red Blood Count 2.52L, Hemoglobin 7.7L, Hematocrit 23.2L, Mean Corpuscular Volume 92, Mean Corpuscular Hemoglobin 30.6, Mean Corpuscular Hemoglobin Concent 33.4, Red Cell Distribution Width 15.0H, Platelet Count 385, Mean Platelet Volume 6.4L, Neutrophils (%) (Auto) , Lymphocytes (%) (Auto) , Monocytes (%) (Auto) , Eosinophils (%) (Auto) , Basophils (%) (Auto) , Differential Total Cells Counted 100, Neutrophils % (Manual) 80H, Lymphocytes % (Manual) 9L, Monocytes % (Manual) 10, Eosinophils % (Manual) 1, Basophils % (Manual) 0, Band Neutrophils 0, Platelet Estimate Adequate, Platelet Morphology Normal, Hypochromasia 1+, Anisocytosis 1+, Sodium Level 140, Potassium Level 4.9, Chloride Level 104, Carbon Dioxide Level 25, Anion Gap 11, Blood Urea Nitrogen 66H, Creatinine 8.1H, Estimat Glomerular Filtration Rate 4.7, Glucose Level 118H, Calcium Level 7.9L, Phosphorus Level 6.2H, Magnesium Level 2.2, Total Bilirubin 0.4, Direct Bilirubin 0.2, Aspartate Amino Transf (AST/SGOT) 17, Alanine Aminotransferase (ALT/SGPT) 12, Alkaline Phosphatase 185H, Lactate Dehydrogenase 151, Total Protein 5.9L, Albumin 2.1L Height (Feet): 5 Height (Inches): 5.00 Weight (Pounds): 140 Objective General: WDWN female in NAD, A&O x 4 on nasal cannula HEENT: Normocephalic cephalic atraumatic, pupils equal round reactive to light and accommodation, nares patent and no symmetrical, no tonsillar exudates, mucous membranes moist CV: Regular rate regular rhythm, no murmurs, rubs, or gallops Pulm: Lungs decreased breath sounds on right (improved). No wheezes, rhonchi, or rales GI: Soft, nontender, nondistended, bowel sounds present Neuro: CN 2-12 intact bilaterally, no focal signs. Ext: No lower extremity edema bilaterally Skin: no rashes lesions or ulcers Msk: Joints symmetrical in upper extremity and lower extremity bilaterally, no joint swelling. Lymph: No lymphadenopathy in upper extremity and lower extremity Assessment/Plan Status: stable Assessment/Plan: #Acute UTI #Concern for possible aspiration pna #Right sided pleural effusion #acute hypoxic respiratory failure #Acute Metabolic Encephalopathy due to hypoglycemia and infection as below - improved #Hypothermia - resolved Patient presented following BG 20s in the field. - CT Brain with no acute intracranial hemorrhage, or midline shift - BC x2: no growth - Covid neg - Abx - s/p Azithromycin - Continue Zosyn (11/02 - ), s/p ceftriaxone in ED - Pulm consult; Tirmizi - Thoracentesis 11/03: 1400 cc. F/u Fluid studies - ID consult : [place] - PT/OT -Repeat chest x-ray today #Insulin Dependent T2DM #hypoglycemia - Hold insulin for now - ISS - Will need diabetic education - Endocrinology consult for better DM regimen at home: Dr. Barron - Patient takes varying doses of lantus. From 10 - 20 units - check A1C: 7.8 - Start on januvia 25mg PO daily #Acute diarrhea - not improving - check C diff - stool WBC - stool culture - hold laxatives #hypertension - increase amlodipine to 10mg daily #Type 2 NSTEMI, suspect demand #SVT - Aspirin in the ED, no active chest pain - EKG - Sinus bradycardia with RBBB - HR improving with rewarming - Cardiology consult: Dr. Camp - > no intervention - Repeat EKG - Check TTE - check troponin #Elevated alk phos - check GGT: normal #ESRD (//sun) - Nephrology consulted, appreciate recs #HLD - continue crestor Diet - Carb consistent Heparin sq FENPPX DVTPPX: HSQ GI PPX: none Fluids: per nephro Diet: Diabetic/Renal PT/OT: pending Code status: Full Dispo: Reason for Continued Hospitalization: 39 minutes spent on this encounter. Discussed with nephrology, ID, Pulm, endocrinology. 23 spent on counseling and care coordination. Time of note may not reflect time patient was seen. Alec Saleh D.O. Nov 06, 2020 18:59
--- NOTE | 2020-11-06 19:30 | NUR ---
NURSE HAND-OFF REPORT: Important Events on Shift:[Hemodialysis done 2L out] Patient Status: [Full code] Diet: [CCHO low] Pending Orders: [] Pending Results/Labs:[] Pending MD notification:[] Latest Vital Signs: Temperature 98.1 , Pulse 90 , B/P 143 /71 , Respiratory Rate 20 , O2 SAT 94 , Nasal Cannula, O2 Flow Rate 2.0 . Vital Sign Comment: [] EKG Rhythm: SR w/ BBB Rhythm change?: N MD Notified?: Y Venkatesh SNELL MD Response: No New Orders Received Latest [place] Fall Score: 30 Fall Risk: Medium Risk Safety Measures: Call light Within Reach, Bed Alarm Zone 1, Side Rails Side Rails x2, Bed position Low and Locked. Fall Precautions: Yellow Socks Yellow Gown Door Sign Patient Fall Education Report given to [BOBY Maurice].
[2020-11-06 20:00] VITALS: BP 150/63
--- NOTE | 2020-11-06 20:00 | NUR ---
NURSE NOTES: RECEIVED PATIENT LYING IN BED, AWAKE, ALERT,ORIENTED X3, VERBALLY RESPONSIVE, DENIES PAIN, NO SIGNS AND SYMPTOMS OF ACUTE CARDIO RESPIRATORY DISTRESS/SHORTNESS OF BREATH, DENIES CHEST PAIN, NO PERIPHERAL EDEMA NOTED. IV INTACT TO RIGHT FOREARM/GAUGE 22, NO REDNESS/SWELLING NOTED. CONTINUE ON HEARING HEALTHCARE PRACTITIONER / SINUS RHYTHM WITH BBB. ABDOMEN SOFT/FLAT, ACTIVE BOWEL SOUNDS, DENIES N/V/D. ENCOURAGED PATIENT TO UTILIZE CALL LIGHT FOR ASSISTANCE, VERBALIZED UNDERSTANDING. SIDE RAILS LUP X3/BED IN LOWEST POSITION FOR SAFETY, ENCOURAGED PATIENT TO UTILIZE CALL LIGHT FOR ASSISTANCE, CONTINUE WITH CURRENT PLAN OF CARE. NAD.
[2020-11-07] VITALS: BP 143/64
[2020-11-07 04:00] VITALS: BP 150/61
[2020-11-07] MEDS: Zosyn 2.25gm in NS 110ML IVPB SCH ×3 (05:48→22:09)
[2020-11-07] MEDS: NovoLOG Insulin Flexpen SUBQ SCH ×4 (06:30→22:08)
[2020-11-07] MEDS: sitaGLIPtin 25mg tab ORAL SCH (07:01)
[2020-11-07] MEDS: Heparin 5000 units/ml inj SUBQ SCH ×3 (07:02→22:09)
--- NOTE | 2020-11-07 07:25 | NUR ---
NURSE NOTES: RECEIVED PATIENT LYING IN BED, AWAKE, ALERT/ORIENTEDX4, TALKATIVE. ON O2 2L VIA NC. DENIES PAIN, NO SIGNS AND SYMPTOMS OF ACUTE CARDIO-RESPIRATORY DISTRESS/SHORTNESS OF BREATH, DENIES CHEST PAIN, NO PERIPHERAL EDEMA NOTED. ON DATABASE PROGRAMMER INPLACED. PIV INTACT TO RIGHT AC/GAUGE 22, NO REDNESS/SWELLING NOTED. HD PATIENT-LEFT UPPER ARM AV SHUNT, DRESSING DRY AND INTACT/+BRUIT/THRILL FELT ON PALPATION. NO COMPLAINTS OF GI DISCOMFORT, NO N/V, BOWELS AUDIBLE. SIDE RAILS UP X3, BED IN LOWEST POSITION FOR SAFETY, ENCOURAGED PATIENT TO UTILIZE CALL LIGHT FOR ASSISTANCE, VERBALIZED UNDERSTANDING. CONTINUE WITH CURRENT PLAN OF CARE.
[2020-11-07 08:00] VITALS: BP 157/43
[2020-11-07 08:09] LABS: HEMATOCRIT 23.3 % (37.0-47.0); HEMOGLOBIN 7.4 G/DL (12.0-16.0); MEAN CORPUSCULAR VOLUME 94 FL (80-99); PLATELET COUNT 392 K/UL (150-450); RED BLOOD COUNT 2.47 M/UL (4.20-5.40); RED CELL DISTRIBUTION WIDTH 15.1 % (11.6-14.8)
--- NOTE | 2020-11-07 08:25 | NUR ---
NURSE HAND-OFF REPORT: Important Events on Shift:[UNEVENTFUL NIGHT] Patient Status: [STABLE, BLOOD SUGAR LEVEL 138MG/DL, ASYMPTOMATIC, NO INSULIN COVERAGE] Diet: [CCHO LOW] Pending Orders: [N/A] Pending Results/Labs:[] Pending MD notification:[] Latest Vital Signs: Temperature 97.7 , Pulse 78 , B/P 150 /61 , Respiratory Rate 18 , O2 SAT 98 , Nasal Cannula, O2 Flow Rate 2.0 . Vital Sign Comment: [STABLE, AFEBRILE] EKG Rhythm: SR w/ BBB Rhythm change?: N MD Notified?: Tootie SNELL MD Response: No New Orders Received Latest [place] Fall Score: 30 Fall Risk: Medium Risk Safety Measures: Call light Within Reach, Bed Alarm Zone 1, Side Rails Side Rails x2, Bed position Low and Locked. Fall Precautions: Yellow Socks Yellow Gown Door Sign Patient Fall Education Report given to [BOBY CRAWFORD].
[2020-11-07 08:27] LABS: CALCIUM 8.2 MG/DL (8.5-10.1); CREATININE 5.8 MG/DL (0.55-1.30); PHOSPHORUS 5.3 MG/DL (2.5-4.9)
[2020-11-07] MEDS: Aspirin Baby 81mg ORAL SCH (08:27)
--- NOTE | 2020-11-07 10:30 | NUR ---
NURSE NOTES: DR PETERSON MADE AWARE OF THE H/H TODAY'S LABS. NO NEW ORDER INDICATED. PATIENT BEEN SEEN BY PTKRISTINA. ADDED FEW ON HER PERSONAL BELONGING LIST- HEADSET; RX GLASSES; SWEATER. PATIENT IS SITTING ON A CHAIR WITHOUT ANY DISTRESS NOTED. CALL LIGHT IS WITHIN EASY REACH. WILL CONT TO MONITOR.
--- NOTE | 2020-11-07 11:16 | General Progress Note ---
Subjective ROS Limited/Unobtainable: Yes Allergies: Coded Allergies: No Known Allergies (Unverified , 11/02/20) Subjective events noted glucose values in fair control Item Value Date Time Bedside Blood Glucose 138 mg/dl H 11/07/20 0630 Bedside Blood Glucose 128 mg/dl H 11/06/20 2039 Bedside Blood Glucose 145 mg/dl H 11/06/20 1655 Bedside Blood Glucose 211 mg/dl H 11/06/20 1216 Bedside Blood Glucose 109 mg/dl 11/06/20 0630 Objective Last 24 Hour Vital Signs Date Time Temp Pulse Resp B/P (MAP) Pulse Ox O2 Delivery O2 Flow Rate FiO2 11/07/20 09:35 Nasal Cannula 2.0 11/07/20 08:28 73 157/43 11/07/20 08:00 76 11/07/20 08:00 97.9 73 18 157/43 (81) 98 11/07/20 04:00 97.7 78 18 150/61 (90) 98 11/07/20 00:00 90 11/07/20 00:00 97.3 83 18 143/64 (90) 96 11/06/20 21:00 90 11/06/20 21:00 Nasal Cannula 2.0 11/06/20 20:00 97.9 75 20 150/63 (92) 96 11/06/20 16:00 90 11/06/20 16:00 98.1 77 20 143/71 (95) 94 11/06/20 12:00 73 11/06/20 12:00 97.7 74 20 151/57 (88) 98 Intake and Output 11/06/20 11/07/20 19:00 07:00 Intake Total 400 ml 230 ml Output Total 2000 ml Balance -1600 ml 230 ml Intake Oral 400 ml 120 ml IV Total 110 ml Hemodialysis UF 2000 ml Laboratory Tests 11/06/20 20:37: POC Whole Blood Glucose 128H 11/07/20 06:00: White Blood Count 9.0, Red Blood Count 2.47L, Hemoglobin 7.4L, Hematocrit 23.3L, Mean Corpuscular Volume 94, Mean Corpuscular Hemoglobin 30.1, Mean Corpuscular Hemoglobin Concent 32.0, Red Cell Distribution Width 15.1H, Platelet Count 392, Mean Platelet Volume 6.6, Neutrophils (%) (Auto) , Lymphocytes (%) (Auto) , Monocytes (%) (Auto) , Eosinophils (%) (Auto) , Basophils (%) (Auto) , Differential Total Cells Counted 100, Neutrophils % (Manual) 72, Lymphocytes % (Manual) 10L, Monocytes % (Manual) 16H, Eosinophils % (Manual) 2, Basophils % (Manual) 0, Band Neutrophils 0, Platelet Estimate Adequate, Platelet Morphology Normal, Anisocytosis 1+, Sodium Level 142, Potassium Level 4.0, Chloride Level 104, Carbon Dioxide Level 29, Anion Gap 9, Blood Urea Nitrogen 35H, Creatinine 5.8H, Estimat Glomerular Filtration Rate 7.0, Glucose Level 136H, Calcium Level 8.2L, Phosphorus Level 5.3H, Magnesium Level 2.0 Height (Feet): 5 Height (Inches): 5.00 Weight (Pounds): 140 General Appearance: no apparent distress Neck: normal alignment Cardiovascular: normal rate Respiratory/Chest: decreased breath sounds Abdomen: normal bowel sounds Assessment/Plan Problem List: (1) ESRD (end stage renal disease) on dialysis ICD Codes: N18.6 - End stage renal disease; Z99.2 - Dependence on renal dialysis SNOMED: 805220882, 607281625 (2) Hypoglycemia ICD Codes: E16.2 - Hypoglycemia, unspecified SNOMED: 831326307, 377407343 (3) Abdominal distension ICD Codes: R14.0 - Abdominal distension (gaseous) SNOMED: 76408393 (4) Acute encephalopathy ICD Codes: G93.40 - Encephalopathy, unspecified SNOMED: 00877863, 437767386 (5) NSTEMI (non-ST elevated myocardial infarction) ICD Codes: I21.4 - Non-ST elevation (NSTEMI) myocardial infarction SNOMED: 93141900 Status: stable Assessment/Plan: continue Januvia 25 mg daily no need for basal insulin for now hypoglycemia protocol in order Gunnar Barron MD Nov 07, 2020 11:15
--- NOTE | 2020-11-07 11:59 | Surgery Progress Note ---
Surgery Progress Note Subjective Symptoms: improved, pain absent, tolerating diet, passing flatus Objective Last 24 Hour Vital Signs Date Time Temp Pulse Resp B/P (MAP) Pulse Ox O2 Delivery O2 Flow Rate FiO2 11/07/20 09:35 Nasal Cannula 2.0 11/07/20 08:28 73 157/43 11/07/20 08:00 76 11/07/20 08:00 97.9 73 18 157/43 (81) 98 11/07/20 04:00 97.7 78 18 150/61 (90) 98 11/07/20 00:00 90 11/07/20 00:00 97.3 83 18 143/64 (90) 96 11/06/20 21:00 90 11/06/20 21:00 Nasal Cannula 2.0 11/06/20 20:00 97.9 75 20 150/63 (92) 96 11/06/20 16:00 90 11/06/20 16:00 98.1 77 20 143/71 (95) 94 11/06/20 12:00 73 11/06/20 12:00 97.7 74 20 151/57 (88) 98 I&O Intake and Output 11/06/20 11/07/20 19:00 07:00 Intake Total 400 ml 230 ml Output Total 2000 ml Balance -1600 ml 230 ml Intake Oral 400 ml 120 ml IV Total 110 ml Hemodialysis UF 2000 ml Dressing: saturated Cardiovascular: RSR Respiratory: decreased breath sounds Abdomen: soft, flat, non-tender, present bowel sounds, non-distended Extremities: edema, no tenderness, no cyanosis Laboratory Tests Test 11/06/20 20:37 11/07/20 06:00 POC Whole Blood Glucose 128 MG/DL (74-106) H White Blood Count 9.0 K/UL (4.8-10.8) Red Blood Count 2.47 M/UL (4.20-5.40) L Hemoglobin 7.4 G/DL (12.0-16.0) L Hematocrit 23.3 % (37.0-47.0) L Mean Corpuscular Volume 94 FL (80-99) Mean Corpuscular Hemoglobin 30.1 PG (27.0-31.0) Mean Corpuscular Hemoglobin Concent 32.0 G/DL (32.0-36.0) Red Cell Distribution Width 15.1 % (11.6-14.8) H Platelet Count 392 K/UL (150-450) Mean Platelet Volume 6.6 FL (6.5-10.1) Neutrophils (%) (Auto) % (45.0-75.0) Lymphocytes (%) (Auto) % (20.0-45.0) Monocytes (%) (Auto) % (1.0-10.0) Eosinophils (%) (Auto) % (0.0-3.0) Basophils (%) (Auto) % (0.0-2.0) Differential Total Cells Counted 100 Neutrophils % (Manual) 72 % (45-75) Lymphocytes % (Manual) 10 % (20-45) L Monocytes % (Manual) 16 % (1-10) H Eosinophils % (Manual) 2 % (0-3) Basophils % (Manual) 0 % (0-2) Band Neutrophils 0 % (0-8) Platelet Estimate Adequate Platelet Morphology Normal Anisocytosis 1+ Sodium Level 142 MMOL/L (136-145) Potassium Level 4.0 MMOL/L (3.5-5.1) Chloride Level 104 MMOL/L (98-107) Carbon Dioxide Level 29 MMOL/L (21-32) Anion Gap 9 mmol/L (5-15) Blood Urea Nitrogen 35 mg/dL (7-18) H Creatinine 5.8 MG/DL (0.55-1.30) H Estimat Glomerular Filtration Rate 7.0 mL/min (>60) Glucose Level 136 MG/DL (74-106) H Calcium Level 8.2 MG/DL (8.5-10.1) L Phosphorus Level 5.3 MG/DL (2.5-4.9) H Magnesium Level 2.0 MG/DL (1.8-2.4) Plan Problems: (1) NSTEMI (non-ST elevated myocardial infarction) (2) Acute encephalopathy (3) Abdominal distension Assessment & Plan: 85F recently found down here by EMS hypoglycemic, abnormal labs, abd distention noted. patient with minimal abd complaints. mild distention noted on exam but likely baseline seems to have been losing weight recently. bmi 23. alb noted passing flatus and had BM this afternoon bm wnl no n/v/f/c tolerating oral intake hold on imaging for now okay for diet will monitor clinically with physical exam thank you exam improved overall improving no n/v/f/c tolerating diet (4) Hypoglycemia (5) ESRD (end stage renal disease) on dialysis Scout Martinez Nov 07, 2020 11:59
[2020-11-07 12:00] VITALS: BP 149/62
--- NOTE | 2020-11-07 13:58 | Nephrology Progress Note ---
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- #Hypoglycemia #DM #Anemia #HTN HLD - HD sunday - increase amlodipine 10mg daily - monitor for volume overload - check iron panel-> adequate - add epo 4k TIW - check ferritin - check PTH - vitamin D - monitor hemoglobin time spent 35 min Subjective ROS Limited/Unobtainable: No Constitutional: Reports: weakness HEENT: Denies: no symptoms, eye pain, blurred vision, tearing, double vision, ear pain, ear discharge, nose pain, nose congestion, throat pain, throat swelling, mouth pain, mouth swelling, other Genitourinary: Denies: no symptoms, burning, discharge, frequency, flank pain, hematuria, incontinence, pain, urgency, other Neurologic/Psychiatric: Denies: no symptoms, anxiety, depressed, emotional problems, headache, numbness, paresthesia, pre-existing deficit, seizure, tingling, tremors, weakness, other Subjective HD yesterday BP trend improved on amlodipine to 10mg daily Objective Objective Last 24 Hour Vital Signs Date Time Temp Pulse Resp B/P (MAP) Pulse Ox O2 Delivery O2 Flow Rate FiO2 11/07/20 12:49 79 11/07/20 12:00 98.0 76 19 149/62 (91) 98 11/07/20 09:35 Nasal Cannula 2.0 11/07/20 08:28 73 157/43 11/07/20 08:00 76 11/07/20 08:00 97.9 73 18 157/43 (81) 98 11/07/20 04:00 97.7 78 18 150/61 (90) 98 11/07/20 00:00 90 11/07/20 00:00 97.3 83 18 143/64 (90) 96 11/06/20 21:00 90 11/06/20 21:00 Nasal Cannula 2.0 11/06/20 20:00 97.9 75 20 150/63 (92) 96 11/06/20 16:00 90 11/06/20 16:00 98.1 77 20 143/71 (95) 94 Intake and Output 11/06/20 11/07/20 19:00 07:00 Intake Total 400 ml 230 ml Output Total 2000 ml Balance -1600 ml 230 ml Intake Oral 400 ml 120 ml IV Total 110 ml Hemodialysis UF 2000 ml Laboratory Tests 11/06/20 20:37: POC Whole Blood Glucose 128H 11/07/20 06:00: White Blood Count 9.0, Red Blood Count 2.47L, Hemoglobin 7.4L, Hematocrit 23.3L, Mean Corpuscular Volume 94, Mean Corpuscular Hemoglobin 30.1, Mean Corpuscular Hemoglobin Concent 32.0, Red Cell Distribution Width 15.1H, Platelet Count 392, Mean Platelet Volume 6.6, Neutrophils (%) (Auto) , Lymphocytes (%) (Auto) , Monocytes (%) (Auto) , Eosinophils (%) (Auto) , Basophils (%) (Auto) , Differential Total Cells Counted 100, Neutrophils % (Manual) 72, Lymphocytes % (Manual) 10L, Monocytes % (Manual) 16H, Eosinophils % (Manual) 2, Basophils % (Manual) 0, Band Neutrophils 0, Platelet Estimate Adequate, Platelet Morphology Normal, Anisocytosis 1+, Sodium Level 142, Potassium Level 4.0, Chloride Level 104, Carbon Dioxide Level 29, Anion Gap 9, Blood Urea Nitrogen 35H, Creatinine 5.8H, Estimat Glomerular Filtration Rate 7.0, Glucose Level 136H, Calcium Level 8.2L, Phosphorus Level 5.3H, Magnesium Level 2.0 11/07/20 11:58: POC Whole Blood Glucose [Pending] Height (Feet): 5 Height (Inches): 5.00 Weight (Pounds): 140 Belinda Fraire M.D. Nov 07, 2020 13:58
--- NOTE | 2020-11-07 14:52 | NUR ---
NURSE NOTES: CALLED [facility] AND SPOKE WITH SESAR FOR HD TOMORROW, 11/08. AWAITING FOR A CONFIRMATION. WILL CONT TO MONITOR.
--- NOTE | 2020-11-07 15:44 | Pulmonology Progress Note ---
Subjective ROS Limited/Unobtainable: No Interval Events: s/p thoracentesis Constitutional: Reports: fatigue; Denies: fever HEENT: Repors: no symptoms Respiratory: Reports: no symptoms Cardiovascular: Reports: no symptoms Gastrointestinal/Abdominal: Reports: diarrhea; Denies: nausea, vomiting Psychiatric: Denies: depression Skin: Denies: rash Musculoskeletal: Denies: pain Allergies: Coded Allergies: No Known Allergies (Unverified , 11/02/20) Objective Last 24 Hour Vital Signs Date Time Temp Pulse Resp B/P (MAP) Pulse Ox O2 Delivery O2 Flow Rate FiO2 11/07/20 12:49 79 11/07/20 12:00 98.0 76 19 149/62 (91) 98 11/07/20 09:35 Nasal Cannula 2.0 11/07/20 08:28 73 157/43 11/07/20 08:00 76 11/07/20 08:00 97.9 73 18 157/43 (81) 98 11/07/20 04:00 97.7 78 18 150/61 (90) 98 11/07/20 00:00 90 11/07/20 00:00 97.3 83 18 143/64 (90) 96 11/06/20 21:00 90 11/06/20 21:00 Nasal Cannula 2.0 11/06/20 20:00 97.9 75 20 150/63 (92) 96 11/06/20 16:00 90 11/06/20 16:00 98.1 77 20 143/71 (95) 94 Intake and Output 11/06/20 11/07/20 18:59 06:59 Intake Total 400 ml 230 ml Output Total 2000 ml Balance 400 ml -1770 ml Intake Oral 400 ml 120 ml IV Total 110 ml Hemodialysis UF 2000 ml Objective 11/07 normal work of breathing on RA; still loose BM, C diff neg 11/06 saturating well on 2 lpm NC 11/05 saturating 92-95% on 2 lpm NC 11/04/2020 multiple loose stools today; colace and miralax held 11/03/2020 pt sitting in bed saturating well on RA General Appearance: WD/WN, no acute distress HEENT: normocephalic, atraumatic Respiratory: decreased breath sounds Cardiovascular: normal peripheral pulses, normal rate, regular rhythm Abdomen: soft, non tender Microbiology Date/Time Source Procedure Growth Status 11/06/20 07:00 Stool Clostridium difficile Toxin Assay - Final Complete 11/05/20 02:00 Rectum WBC Smear - Final Complete 11/05/20 02:00 Anus Stool Culture - Preliminary NO SALMONELLA,SHIGELLA OR CAMPYLOBACT... Resulted Laboratory Tests 11/06/20 20:37: POC Whole Blood Glucose 128H 11/07/20 06:00: White Blood Count 9.0, Red Blood Count 2.47L, Hemoglobin 7.4L, Hematocrit 23.3L, Mean Corpuscular Volume 94, Mean Corpuscular Hemoglobin 30.1, Mean Corpuscular Hemoglobin Concent 32.0, Red Cell Distribution Width 15.1H, Platelet Count 392, Mean Platelet Volume 6.6, Neutrophils (%) (Auto) , Lymphocytes (%) (Auto) , Monocytes (%) (Auto) , Eosinophils (%) (Auto) , Basophils (%) (Auto) , Differential Total Cells Counted 100, Neutrophils % (Manual) 72, Lymphocytes % (Manual) 10L, Monocytes % (Manual) 16H, Eosinophils % (Manual) 2, Basophils % (Manual) 0, Band Neutrophils 0, Platelet Estimate Adequate, Platelet Morphology Normal, Anisocytosis 1+, Sodium Level 142, Potassium Level 4.0, Chloride Level 104, Carbon Dioxide Level 29, Anion Gap 9, Blood Urea Nitrogen 35H, Creatinine 5.8H, Estimat Glomerular Filtration Rate 7.0, Glucose Level 136H, Calcium Level 8.2L, Phosphorus Level 5.3H, Magnesium Level 2.0 11/07/20 11:58: POC Whole Blood Glucose [Pending] Current Medications Medications (Trade) Dose Ordered Sig/Scooter Route PRN Reason Start Time Stop Time Status Last Admin Dose Admin Acetaminophen (Tylenol) 650 mg Q6H PRN ORAL For Pain 11/02/20 13:00 12/02/20 12:59 11/02/20 17:21 Amlodipine Besylate (Norvasc) 10 mg DAILY ORAL 11/06/20 09:00 12/06/20 08:59 11/07/20 08:28 Aspirin (ASA) 81 mg DAILY ORAL 11/03/20 09:00 12/18/20 08:59 11/07/20 08:27 Dextrose (Dextrose 50%) 25 ml Q30M PRN IV Hypoglycemia 11/02/20 12:15 01/31/21 12:14 Dextrose (Dextrose 50%) 50 ml Q30M PRN IV Hypoglycemia 11/02/20 12:15 01/31/21 12:14 Diphenhydramine HCl (Benadryl) 25 mg Q6H PRN ORAL Itching/Pruritis 11/02/20 12:30 12/02/20 12:29 Epoetin Feng (Epoetin Feng(ESRD on dialysis)) 4,000 unit SUN-SUN-SUN SUBQ 11/05/20 21:00 02/03/21 20:59 11/05/20 21:53 Famotidine (Pepcid) 20 mg DAILY ORAL 11/03/20 09:00 02/01/21 08:59 11/07/20 08:27 Heparin Sodium (Porcine) (Heparin 5000 units/ml) 5,000 units EVERY 8 HOURS SUBQ 11/02/20 14:00 12/17/20 13:59 11/07/20 14:48 Hydralazine HCl (Apresoline) 10 mg Q4H PRN IV For SBP >160 11/02/20 13:00 01/31/21 12:59 Insulin Aspart (NovoLOG) BEFORE MEALS AND HS SUBQ 11/01/20 11:30 01/30/21 11:29 11/07/20 12:18 Piperacillin Sod/ Tazobactam Sod 2.25 gm/Sodium Chloride 110 ml @ 220 mls/hr Q8HR IVPB 11/02/20 14:00 11/09/20 13:59 11/07/20 14:15 Polyethylene Glycol (Miralax) 17 gm HSPRN PRN ORAL Constipation 11/02/20 21:00 12/02/20 20:59 Sitagliptin Phosphate (Januvia) 25 mg ACBREAKFAST ORAL 11/06/20 10:30 12/06/20 10:29 11/07/20 07:01 Assessment/Plan Assessment/Plan 1. Large right pleural effusion. - s/p thoracentesis; 1.4L removed; follow-up CXR better - CXR 11/06 slight increase in moderate right pleural effusion 2. ESRD, on dialysis. 3. Hx of hypoglycemia. 4. Diabetes mellitus. - on glucose-lowering agents per Dr. Barron 5. Acute hypoxic respiratory failure, secondary to #1, #2 - now saturating well on RA - provide supplemental oxygen as needed 6. Acute diarrhea - C diff neg DISCUSSION: s/p thoracentesis Recent CXR shows slight increase in moderate right pleural effusion We will follow carefully. The care for this patient was discussed with my supervising physician Time spent for this case was approximately 31 minutes Baldev Wright Nov 07, 2020 15:44
[2020-11-07 16:07] VITALS: BP 140/48
--- NOTE | 2020-11-07 17:03 | Infectious Diseases Prog Note ---
Assessment/Plan Assessment/Plan A) 1) complicated uti 2) possible pna - ? aspiration pna, ? cap 3) covid - 19 testing negative 4) esrd, hd, anemia, dm, htn, HLD, nstemi, cad, encephalopathy 5) allergies - nkda 6) fh-nc, sh-neg, mar noted, d/w RN 7) notes and records reviewed P) 1) zosyn - day # 7/ 2) monitor labs and chest x-ray 3) cultures noted 4) continue mgt/treatment per primary and consultants 5) will f/u 6) clinically improved Subjective Constitutional: Denies: fever HEENT: Denies: congestion Respiratory: Denies: shortness of breath Cardiovascular: Denies: chest pain Gastrointestinal/Abdominal: Denies: nausea, vomiting, diarrhea Genitourinary: Reports: other - no cisneros Neurologic: Denies: headache Psychiatric: Denies: depression Skin: Denies: rash Hematologic: Denies: bleeding Musculoskeletal: Denies: pain Allergies: Coded Allergies: No Known Allergies (Unverified , 11/02/20) Objective Last 24 Hour Vital Signs Date Time Temp Pulse Resp B/P (MAP) Pulse Ox O2 Delivery O2 Flow Rate FiO2 11/07/20 16:07 99.7 78 18 140/48 (78) 95 11/07/20 12:49 79 11/07/20 12:00 98.0 76 19 149/62 (91) 98 11/07/20 09:35 Nasal Cannula 2.0 11/07/20 08:28 73 157/43 11/07/20 08:00 76 11/07/20 08:00 97.9 73 18 157/43 (81) 98 11/07/20 04:00 97.7 78 18 150/61 (90) 98 11/07/20 00:00 90 11/07/20 00:00 97.3 83 18 143/64 (90) 96 11/06/20 21:00 90 11/06/20 21:00 Nasal Cannula 2.0 11/06/20 20:00 97.9 75 20 150/63 (92) 96 Height (Feet): 5 Height (Inches): 5.00 Weight (Pounds): 140 General Appearance: no acute distress HEENT: normocephalic, atraumatic, anicteric, mucous membranes moist Respiratory/Chest: no accessory muscle use, crackles/rales, rhonchi - bilaterally Cardiovascular: normal rate, regular rhythm, no gallop/murmur Abdomen: normal bowel sounds, soft, non tender, no organomegaly, non distended Genitourinary: other - no cisneros Extremities: no cyanosis Skin: no rash Neurologic/Psychiatric: lsw II-XII grossly normal, alert, responsive Lymphatic: no neck adenopathy Musculoskeletal: no effusion Chest x-ray - 11/04/20 - Findings: Interim decrease in previously demonstrated large right pleural effusion. Residual opacity at the lung base likely reflects residual pleural fluid, and/or pleural thickening and/or atelectasis. There is some consolidation of the right mid and lower lung as well, as well as there is mild generalized bilateral interstitial congestion. There is increasing pleural fluid on the left and increasing retrocardiac consolidation. No pneumothorax is demonstrated. The heart remains enlarged. Impression: Improved right pleural effusion, status post thoracentesis. No radiographically evident complication Increased smaller left pleural effusion Persistent interstitial edema Persistent right basilar opacity, likely combination of residual pleural fluid, atelectasis, and pleural thickening Chest x-ray - 11/06/20 - IMPRESSION: There is mild perihilar pulmonary edema. There are asymmetric infiltrates in the lung bases, right greater than left. This may represent atelectasis however superimposed pneumonia not excluded. Microbiology Date/Time Source Procedure Growth Status 11/06/20 07:00 Stool Clostridium difficile Toxin Assay - Final Complete 11/05/20 02:00 Rectum WBC Smear - Final Complete 11/05/20 02:00 Anus Stool Culture - Preliminary NO SALMONELLA,SHIGELLA OR CAMPYLOBACT... Resulted Laboratory Tests Test 11/06/20 20:37 11/07/20 06:00 11/07/20 11:58 POC Whole Blood Glucose 128 MG/DL (74-106) H Pending White Blood Count 9.0 K/UL (4.8-10.8) Red Blood Count 2.47 M/UL (4.20-5.40) L Hemoglobin 7.4 G/DL (12.0-16.0) L Hematocrit 23.3 % (37.0-47.0) L Mean Corpuscular Volume 94 FL (80-99) Mean Corpuscular Hemoglobin 30.1 PG (27.0-31.0) Mean Corpuscular Hemoglobin Concent 32.0 G/DL (32.0-36.0) Red Cell Distribution Width 15.1 % (11.6-14.8) H Platelet Count 392 K/UL (150-450) Mean Platelet Volume 6.6 FL (6.5-10.1) Neutrophils (%) (Auto) % (45.0-75.0) Lymphocytes (%) (Auto) % (20.0-45.0) Monocytes (%) (Auto) % (1.0-10.0) Eosinophils (%) (Auto) % (0.0-3.0) Basophils (%) (Auto) % (0.0-2.0) Differential Total Cells Counted 100 Neutrophils % (Manual) 72 % (45-75) Lymphocytes % (Manual) 10 % (20-45) L Monocytes % (Manual) 16 % (1-10) H Eosinophils % (Manual) 2 % (0-3) Basophils % (Manual) 0 % (0-2) Band Neutrophils 0 % (0-8) Platelet Estimate Adequate Platelet Morphology Normal Anisocytosis 1+ Sodium Level 142 MMOL/L (136-145) Potassium Level 4.0 MMOL/L (3.5-5.1) Chloride Level 104 MMOL/L (98-107) Carbon Dioxide Level 29 MMOL/L (21-32) Anion Gap 9 mmol/L (5-15) Blood Urea Nitrogen 35 mg/dL (7-18) H Creatinine 5.8 MG/DL (0.55-1.30) H Estimat Glomerular Filtration Rate 7.0 mL/min (>60) Glucose Level 136 MG/DL (74-106) H Calcium Level 8.2 MG/DL (8.5-10.1) L Phosphorus Level 5.3 MG/DL (2.5-4.9) H Magnesium Level 2.0 MG/DL (1.8-2.4) Current Medications Medications (Trade) Dose Ordered Sig/Scooter Route PRN Reason Start Time Stop Time Status Last Admin Dose Admin Acetaminophen (Tylenol) 650 mg Q6H PRN ORAL For Pain 11/02/20 13:00 12/02/20 12:59 11/02/20 17:21 Amlodipine Besylate (Norvasc) 10 mg DAILY ORAL 11/06/20 09:00 12/06/20 08:59 12/20/20 08:28 Aspirin (ASA) 81 mg DAILY ORAL 11/03/20 09:00 12/18/20 08:59 11/07/20 08:27 Dextrose (Dextrose 50%) 25 ml Q30M PRN IV Hypoglycemia 11/02/20 12:15 01/31/21 12:14 Dextrose (Dextrose 50%) 50 ml Q30M PRN IV Hypoglycemia 11/02/20 12:15 01/31/21 12:14 Diphenhydramine HCl (Benadryl) 25 mg Q6H PRN ORAL Itching/Pruritis 11/02/20 12:30 12/02/20 12:29 Epoetin Feng (Epoetin Feng(ESRD on dialysis)) 4,000 unit SUN-SUN-SUN SUBQ 11/05/20 21:00 02/03/21 20:59 11/05/20 21:53 Famotidine (Pepcid) 20 mg DAILY ORAL 11/03/20 09:00 02/01/21 08:59 11/07/20 08:27 Heparin Sodium (Porcine) (Heparin 5000 units/ml) 5,000 units EVERY 8 HOURS SUBQ 11/02/20 14:00 12/17/20 13:59 11/07/20 14:48 Hydralazine HCl (Apresoline) 10 mg Q4H PRN IV For SBP >160 11/02/20 13:00 01/31/21 12:59 Insulin Aspart (NovoLOG) BEFORE MEALS AND HS SUBQ 11/01/20 11:30 01/30/21 11:29 11/07/20 16:22 Piperacillin Sod/ Tazobactam Sod 2.25 gm/Sodium Chloride 110 ml @ 220 mls/hr Q8HR IVPB 11/02/20 14:00 11/09/20 13:59 11/07/20 14:15 Polyethylene Glycol (Miralax) 17 gm HSPRN PRN ORAL Constipation 11/02/20 21:00 12/02/20 20:59 Sitagliptin Phosphate (Januvia) 25 mg ACBREAKFAST ORAL 11/06/20 10:30 12/06/20 10:29 11/07/20 07:01 Eliu Cortez MD Nov 07, 2020 17:02
--- NOTE | 2020-11-07 18:10 | General Progress Note ---
Subjective Allergies: Coded Allergies: No Known Allergies (Unverified , 11/02/20) Subjective No acute events overnight per nursing. Still intermittently on oxygen. White count normalizing. Diarrhea resolving. C. difficile negative. Seen by PT. Recommending home with home health. No other complaints. Denies any chest pain, fever, chills. Tele: still intermittent SVTs. Asymptomatic, denies chest pain or SOB or palpitations. Review of systems: Constitutional: Denies: chills, diaphoresis, fever, malaise, weakness, + fatigue HEENT: Denies: eye pain, blurred vision, double vision, ear pain, nose pain, throat pain, Cardiovascular: Denies: chest pain, edema, lightheadedness, palpitations Respiratory: Denies: cough, orthopnea, shortness of breath, SOB with excertion, SOB at rest, Gastrointestinal/Abdominal: Denies: abdominal pain, black stools, blood in stool, constipation, diarrhea, nausea, poor fluid intake vomiting, other Genitourinary: Denies: burning, discharge, frequency, Neurologic/Psychiatric: Denies: headache, numbness, paresthesia, new weakness, other Endocrine: Denies: excessive sweating, flushing, intolerance to cold, MSK: denies joint pains, swelling, stiffness Hematologic/Lymphatic: Denies: anemia, easy bleeding, easy bruising, Objective Last 24 Hour Vital Signs Date Time Temp Pulse Resp B/P (MAP) Pulse Ox O2 Delivery O2 Flow Rate FiO2 11/07/20 16:07 99.7 78 18 140/48 (78) 95 11/07/20 12:49 79 11/07/20 12:00 98.0 76 19 149/62 (91) 98 11/07/20 09:35 Nasal Cannula 2.0 11/07/20 08:28 73 157/43 11/07/20 08:00 76 11/07/20 08:00 97.9 73 18 157/43 (81) 98 11/07/20 04:00 97.7 78 18 150/61 (90) 98 11/07/20 00:00 90 11/07/20 00:00 97.3 83 18 143/64 (90) 96 11/06/20 21:00 90 11/06/20 21:00 Nasal Cannula 2.0 11/06/20 20:00 97.9 75 20 150/63 (92) 96 Intake and Output 11/06/20 11/07/20 19:00 07:00 Intake Total 400 ml 230 ml Output Total 2000 ml Balance -1600 ml 230 ml Intake Oral 400 ml 120 ml IV Total 110 ml Hemodialysis UF 2000 ml Laboratory Tests 11/06/20 20:37: POC Whole Blood Glucose 128H 11/07/20 06:00: White Blood Count 9.0, Red Blood Count 2.47L, Hemoglobin 7.4L, Hematocrit 23.3L, Mean Corpuscular Volume 94, Mean Corpuscular Hemoglobin 30.1, Mean Corpuscular Hemoglobin Concent 32.0, Red Cell Distribution Width 15.1H, Platelet Count 392, Mean Platelet Volume 6.6, Neutrophils (%) (Auto) , Lymphocytes (%) (Auto) , Monocytes (%) (Auto) , Eosinophils (%) (Auto) , Basophils (%) (Auto) , Differential Total Cells Counted 100, Neutrophils % (Manual) 72, Lymphocytes % (Manual) 10L, Monocytes % (Manual) 16H, Eosinophils % (Manual) 2, Basophils % (Manual) 0, Band Neutrophils 0, Platelet Estimate Adequate, Platelet Morphology Normal, Anisocytosis 1+, Sodium Level 142, Potassium Level 4.0, Chloride Level 104, Carbon Dioxide Level 29, Anion Gap 9, Blood Urea Nitrogen 35H, Creatinine 5.8H, Estimat Glomerular Filtration Rate 7.0, Glucose Level 136H, Calcium Level 8.2L, Phosphorus Level 5.3H, Magnesium Level 2.0 11/07/20 11:58: POC Whole Blood Glucose [Pending] Height (Feet): 5 Height (Inches): 5.00 Weight (Pounds): 140 Objective General: WDWN female in NAD, A&O x 4 HEENT: Normocephalic cephalic atraumatic, pupils equal round reactive to light and accommodation, nares patent and no symmetrical, no tonsillar exudates, mucous membranes moist CV: Regular rate regular rhythm, no murmurs, rubs, or gallops Pulm: Lungs decreased breath sounds on right (improved). No wheezes, rhonchi, or rales GI: Soft, nontender, nondistended, bowel sounds present Neuro: CN 2-12 intact bilaterally, no focal signs. Ext: No lower extremity edema bilaterally Skin: no rashes lesions or ulcers Msk: Joints symmetrical in upper extremity and lower extremity bilaterally, no joint swelling. Lymph: No lymphadenopathy in upper extremity and lower extremity Assessment/Plan Status: stable Assessment/Plan: #Acute UTI #Concern for possible aspiration pna #Exudative Right sided pleural effusion, suspect from pneumonia. Appreciate Pulm input. #acute hypoxic respiratory failure 2/2 Pna/Effusion- improving #Acute Metabolic Encephalopathy due to hypoglycemia and infection as below - Resolved #Hypothermia - resolved Patient presented following BG 20s in the field. Due to insulin use in ESRD - CT Brain with no acute intracranial hemorrhage, or midline shift - BC x2: no growth - Covid neg - Abx - s/p Azithromycin - Continue Zosyn (11/02 - ), s/p ceftriaxone in ED - Abx per ID - Pulm consult; Tirmizi - Thoracentesis 11/03: 1400 cc. F/u Cytology - pending - ID consult : Alk[place]ooles - PT/OT -Repeat chest x-ray: asymmetric infiltrates. No effusion #Insulin Dependent T2DM #hypoglycemia - Hold insulin for now - ISS - Will need diabetic education - Endocrinology consult for better DM regimen at home: Dr. Barron - Patient takes varying doses of lantus. From 10 - 20 units - check A1C: 7.8 - Continue januvia 25mg PO daily #Acute diarrhea - resolving - check C diff: negative - stool WBC: rare WBC - stool culture: negative - hold laxatives #hypertension - amlodipine to 10mg daily #Type 2 NSTEMI, suspect demand #SVT - Aspirin in the ED, no active chest pain - EKG - Sinus bradycardia with RBBB - HR improving with rewarming - Cardiology consult: Dr. Camp - > no intervention - Repeat EKG: reviewed - Check TTE: pending #Elevated alk phos - check GGT: normal #ESRD (//sun) - Nephrology consulted, appreciate recs #HLD - continue crestor Diet - Carb consistent Heparin sq FENPPX DVTPPX: HSQ GI PPX: none Fluids: per nephro Diet: Diabetic/Renal PT/OT: pending Code status: Full Dispo: Home with Home health PT/OT Reason for Continued Hospitalization: hypoxia MIPS ([employer]-based Incentive Payment System) Applicable CPT: 34388, 97753 CHECK ALL THAT ARE MET: [] Measure #5 (CHF): All ages. Prescribe LIZ/ARB upon discharge for patients with left ventricular systolic dysfunction. If not, the reason is clearly documented in the medical chart [] Measure #8 (CHF): All ages. Prescribe a beta darshan upon discharge for patients with left ventricular systolic dysfunction. If not, the reason is clearly documented in the medical chart. [x] Measure #47: Advance care plan or surrogate decision maker documented in the medical record. [x] Measure #130 The provider has documented, updated, or reviewed the patients current medication list and has documented it in the patients note. [x] Measure #374 (All): Send report to referring provider. [] Measure #407(Sepsis due to MSSA bacteremia): Age 18+ Patient treated with a beta-lactam antibiotic (Nafcillin, Oxacillin or Cefazolin) as definitive th erapy. MEDICAL COMPLEXITYHigh complexity medical decision making (need 2/3 categories)Problem - need 4 points [x]Acute/new problem with new plan for workup (4 points, 1 max) [] Acute/new problem without additional workup (3 points, 1 max) [] Unstable chronic problem actively being managed (2 point each, 2 max) [x] Stable chronic problem actively being managed (1 point each, 2 max) [x] Self-limited/transient process (constipation, muscle ache, etc) (1 point each, 2 max) Data - need 4 points [x] Reviewed labs/imaging studies (1 points, 2 max) [x] Independent review of imaging (EKG, xrays, etc) (2 points, 2 max) [x] Discussed case with consult/other MD/RN (2 points, 2 max) High Risk - qualify if have one of the following: [] Severe exacerbation of acute problem, acute mental status change, IV narcotics, monitoring drug levels (vancomycin, INR, tacrolimus etc) I spent 37 minutes on this patient's case, and 20 mins was dedicated to counseling and/or care coordination. Discussed with aisha PENA, RN at bedside. Time of note may not reflect time of encounter Alec Saleh D.O. Nov 07, 2020 18:10
--- NOTE | 2020-11-07 19:00 | NUR ---
NURSE NOTES: Received report from BOBY Radford; AOX4; ambulatory using FWW; noted with R hand 24 gauge IV site s/l; in no acute distress on O2 therapy 2L via NC; intact and patent; call light within reach; left upper arm AV shunt noted; no bleeding; bed locked and in low position; side rails x 2; will continue to monitor.
--- NOTE | 2020-11-07 19:21 | NUR ---
NURSE HAND-OFF REPORT: Important Events on Shift:[HD IN AM; FALL RISK; SEEN BY PT] Patient Status: [STABLE] Diet: [CCHO LOW] Pending Orders: [HD] Pending Results/Labs:[IN AM] Pending MD notification:[] Latest Vital Signs: Temperature 99.7 , Pulse 78 , B/P 140 /48 , Respiratory Rate 18 , O2 SAT 95 , Nasal Cannula, O2 Flow Rate 2.0 . Vital Sign Comment: [] EKG Rhythm: SR w/ PAC's Rhythm change?: N MD Notified?: Y -Dr ALIS DONAHUE Response: No New Orders Received Latest Bolaños Fall Score: 30 Fall Risk: Medium Risk Safety Measures: Call light Within Reach, Bed Alarm Zone 1, Side Rails Side Rails x2, Bed position Low and Locked. Fall Precautions: Yellow Socks Yellow Gown Door Sign Patient Fall Education Report given to [SHIMA].
[2020-11-07 20:00] VITALS: BP 153/53
[2020-11-07] MEDS ORDERED: PROCARDIA XL60 MG ORAL (20:40)
[2020-11-07] MEDS ORDERED: PROCARDIA XL90 M4 ORAL (20:40)
[2020-11-07] MEDS ORDERED: TRADJENTA5 MG PO (20:40)
[2020-11-07] MEDS ORDERED: AMIODARONE HCL200 MG ORAL (20:40)
[2020-11-07] MEDS ORDERED: CARVEDILOL25 MG ORAL (20:40)
[2020-11-07] MEDS ORDERED: PLAVIX75 MG ORAL (20:40)
[2020-11-07] MEDS ORDERED: RENVELA0.8 GM ORAL (20:40)
[2020-11-07] MEDS ORDERED: ISOSORBIDE MONO60 M1 PO (20:40)
[2020-11-07] MEDS ORDERED: CRESTOR10 M2 ORAL (20:40)
[2020-11-07] MEDS ORDERED: ELIQUIS2.5 MG ORAL (20:40)
[2020-11-07] MEDS ORDERED: HYDRALAZINE HC100 MG ORAL (20:40)
[2020-11-07] MEDS ORDERED: PRINIVIL10 MG ORAL (20:40)
--- NOTE | 2020-11-07 22:01 | Neurology Progress Note ---
Interim History Interim History ROS Limited/Unobtainable: No Interim History more alert today, at baseline Objective Physical Exam Last Vital Signs Date Time Temp Pulse Resp B/P (MAP) Pulse Ox O2 Delivery O2 Flow Rate FiO2 11/07/20 16:07 99.7 78 18 140/48 (78) 95 11/07/20 09:35 Nasal Cannula 2.0 Laboratory Tests Test 11/07/20 06:00 11/07/20 11:58 White Blood Count 9.0 K/UL (4.8-10.8) Red Blood Count 2.47 M/UL (4.20-5.40) L Hemoglobin 7.4 G/DL (12.0-16.0) L Hematocrit 23.3 % (37.0-47.0) L Mean Corpuscular Volume 94 FL (80-99) Mean Corpuscular Hemoglobin 30.1 PG (27.0-31.0) Mean Corpuscular Hemoglobin Concent 32.0 G/DL (32.0-36.0) Red Cell Distribution Width 15.1 % (11.6-14.8) H Platelet Count 392 K/UL (150-450) Mean Platelet Volume 6.6 FL (6.5-10.1) Neutrophils (%) (Auto) % (45.0-75.0) Lymphocytes (%) (Auto) % (20.0-45.0) Monocytes (%) (Auto) % (1.0-10.0) Eosinophils (%) (Auto) % (0.0-3.0) Basophils (%) (Auto) % (0.0-2.0) Differential Total Cells Counted 100 Neutrophils % (Manual) 72 % (45-75) Lymphocytes % (Manual) 10 % (20-45) L Monocytes % (Manual) 16 % (1-10) H Eosinophils % (Manual) 2 % (0-3) Basophils % (Manual) 0 % (0-2) Band Neutrophils 0 % (0-8) Platelet Estimate Adequate Platelet Morphology Normal Anisocytosis 1+ Sodium Level 142 MMOL/L (136-145) Potassium Level 4.0 MMOL/L (3.5-5.1) Chloride Level 104 MMOL/L (98-107) Carbon Dioxide Level 29 MMOL/L (21-32) Anion Gap 9 mmol/L (5-15) Blood Urea Nitrogen 35 mg/dL (7-18) H Creatinine 5.8 MG/DL (0.55-1.30) H Estimat Glomerular Filtration Rate 7.0 mL/min (>60) Glucose Level 136 MG/DL (74-106) H Calcium Level 8.2 MG/DL (8.5-10.1) L Phosphorus Level 5.3 MG/DL (2.5-4.9) H Magnesium Level 2.0 MG/DL (1.8-2.4) POC Whole Blood Glucose Pending Neurologic Exam Mental Status: awake Objective ao x 2 antigravity all 4 nc at neck supple abd soft resp no distress Impression/Recommendations Problems: (1) NSTEMI (non-ST elevated myocardial infarction) (2) Acute encephalopathy (3) Abdominal distension (4) Hypoglycemia (5) ESRD (end stage renal disease) on dialysis Status: stable Diagnostic Impression improved metabolic encephalopathy, less likely vascular hold on mri for now cont delirium precautions medical support pt ot has stairs at home Nathaniel Doyle MD Nov 07, 2020 22:01
[2020-11-08] VITALS: BP 135/37
[2020-11-08 04:00] VITALS: BP 154/54
[2020-11-08] MEDS: Heparin 5000 units/ml inj SUBQ SCH (06:00)
[2020-11-08] MEDS: Zosyn 2.25gm in NS 110ML IVPB SCH ×2 (06:15→14:48)
[2020-11-08] MEDS: sitaGLIPtin 25mg tab ORAL SCH (06:17)
[2020-11-08] MEDS: NovoLOG Insulin Flexpen SUBQ SCH ×4 (06:27→20:34)
--- NOTE | 2020-11-08 07:00 | NUR ---
NURSE HAND-OFF REPORT: Important Events on Shift: For HD today AM, No BP/IV on L arm Patient Status: AOX4, stable Diet: CCHO low Pending Orders: N Pending Results/Labs: morning labs Pending MD notification: N Latest Vital Signs: Temperature 97.5 , Pulse 76 , B/P 154 /54 , Respiratory Rate 20 , O2 SAT 98 , Nasal Cannula, O2 Flow Rate 2.0 . Vital Sign Comment: STABLE EKG Rhythm: Sinus Rhythm Rhythm change?: N MD Notified?: N MD Response: N/A Latest Bolaños Fall Score: 85 Fall Risk: High Risk Safety Measures: Call light Within Reach, Bed Alarm Zone 1, Side Rails Side Rails x2, Bed position Low and Locked. Fall Precautions: Yellow Socks Yellow Gown Door Sign Patient Fall Education Report given to ARTURO Mcclendon.
[2020-11-08 07:23] LABS: ALBUMIN/GLOBULIN RATIO 0.4 (1.0-2.7); BILIRUBIN,TOTAL 0.3 MG/DL (0.2-1.0); CALCIUM 8.1 MG/DL (8.5-10.1); CREATININE 7.8 MG/DL (0.55-1.30); PHOSPHORUS 6.9 MG/DL (2.5-4.9); POTASSIUM 4.1 MMOL/L (3.5-5.1)
[2020-11-08 07:26] LABS: HEMATOCRIT 23.8 % (37.0-47.0); HEMOGLOBIN 7.6 G/DL (12.0-16.0); MEAN CORPUSCULAR VOLUME 94 FL (80-99); PLATELET COUNT 356 K/UL (150-450); RED BLOOD COUNT 2.52 M/UL (4.20-5.40); WHITE BLOOD COUNT 9.2 K/UL (4.8-10.8)
--- NOTE | 2020-11-08 07:43 | General Progress Note ---
Subjective ROS Limited/Unobtainable: Yes Allergies: Coded Allergies: No Known Allergies (Unverified , 11/02/20) Subjective events noted glucose values in fair control Item Value Date Time Bedside Blood Glucose 109 mg/dl 11/08/20 0630 Bedside Blood Glucose 214 mg/dl H 11/07/20 2208 Bedside Blood Glucose 148 mg/dl H 11/07/20 1622 Bedside Blood Glucose 172 mg/dl H 11/07/20 1218 Bedside Blood Glucose 138 mg/dl H 11/07/20 0630 Objective Last 24 Hour Vital Signs Date Time Temp Pulse Resp B/P (MAP) Pulse Ox O2 Delivery O2 Flow Rate FiO2 11/08/20 04:00 76 11/08/20 04:00 97.5 74 20 154/54 (87) 98 11/08/20 00:00 73 11/08/20 00:00 97.5 75 20 135/37 (69) 98 11/07/20 21:00 Nasal Cannula 2.0 11/07/20 20:00 97.9 79 20 153/53 (86) 96 11/07/20 20:00 79 11/07/20 16:07 99.7 78 18 140/48 (78) 95 11/07/20 16:00 75 11/07/20 12:49 79 11/07/20 12:00 98.0 76 19 149/62 (91) 98 11/07/20 09:35 Nasal Cannula 2.0 11/07/20 08:28 73 157/43 11/07/20 08:00 76 11/07/20 08:00 97.9 73 18 157/43 (81) 98 Intake and Output 11/07/20 11/08/20 19:00 07:00 Intake Total 1780 ml 60 ml Balance 1780 ml 60 ml Intake Oral 1560 ml 60 ml IV Total 220 ml # Voids 5 1 # Bowel Movements 4 Laboratory Tests 11/07/20 11:58: POC Whole Blood Glucose [Pending] 11/07/20 22:05: POC Whole Blood Glucose 214H 11/08/20 05:50: White Blood Count [Pending], Red Blood Count [Pending], Hemoglobin [Pending], Hematocrit [Pending], Mean Corpuscular Volume [Pending], Mean Corpuscular Hemoglobin [Pending], Mean Corpuscular Hemoglobin Concent [Pending], Red Cell Distribution Width [Pending], Platelet Count [Pending], Mean Platelet Volume [Pending], Neutrophils (%) (Auto) [Pending], Lymphocytes (%) (Auto) [Pending], Monocytes (%) (Auto) [Pending], Eosinophils (%) (Auto) [Pending], Basophils (%) (Auto) [Pending], Sodium Level 141, Potassium Level 4.1, Chloride Level 104, Carbon Dioxide Level 26, Anion Gap 11, Blood Urea Nitrogen 51H, Creatinine 7.8H, Estimat Glomerular Filtration Rate 5.0, Glucose Level 111H, Calcium Level 8.1L, Phosphorus Level 6.9H, Magnesium Level 2.1, Total Bilirubin 0.3, Aspartate Amino Transf (AST/SGOT) 16, Alanine Aminotransferase (ALT/SGPT) 13, Alkaline Phosphatase 146H, Total Protein 6.6, Albumin 2.0L, Globulin 4.6, Albumin/Globulin Ratio 0.4L Height (Feet): 5 Height (Inches): 5.00 Weight (Pounds): 140 General Appearance: no apparent distress Neck: normal alignment Cardiovascular: normal rate Respiratory/Chest: decreased breath sounds Abdomen: normal bowel sounds Objective Current Medications Medications (Trade) Dose Ordered Sig/Scooter Route PRN Reason Start Time Stop Time Status Last Admin Dose Admin Acetaminophen (Tylenol) 650 mg Q6H PRN ORAL For Pain 11/02/20 13:00 12/02/20 12:59 11/02/20 17:21 Amlodipine Besylate (Norvasc) 10 mg DAILY ORAL 11/06/20 09:00 12/06/20 08:59 11/07/20 08:28 Aspirin (ASA) 81 mg DAILY ORAL 11/03/20 09:00 12/18/20 08:59 11/07/20 08:27 Dextrose (Dextrose 50%) 25 ml Q30M PRN IV Hypoglycemia 11/02/20 12:15 01/31/21 12:14 Dextrose (Dextrose 50%) 50 ml Q30M PRN IV Hypoglycemia 11/02/20 12:15 01/31/21 12:14 Diphenhydramine HCl (Benadryl) 25 mg Q6H PRN ORAL Itching/Pruritis 11/02/20 12:30 12/02/20 12:29 Epoetin Feng (Epoetin Feng(ESRD on dialysis)) 4,000 unit SUN-SUN-SUN SUBQ 11/05/20 21:00 02/03/21 20:59 11/05/20 21:53 Famotidine (Pepcid) 20 mg DAILY ORAL 11/03/20 09:00 02/01/21 08:59 11/07/20 08:27 Heparin Sodium (Porcine) (Heparin 5000 units/ml) 5,000 units EVERY 8 HOURS SUBQ 11/02/20 14:00 12/17/20 13:59 11/07/20 22:09 Hydralazine HCl (Apresoline) 10 mg Q4H PRN IV For SBP >160 11/02/20 13:00 01/31/21 12:59 Insulin Aspart (NovoLOG) BEFORE MEALS AND HS SUBQ 11/01/20 11:30 01/30/21 11:29 11/07/20 22:08 Piperacillin Sod/ Tazobactam Sod 2.25 gm/Sodium Chloride 110 ml @ 220 mls/hr Q8HR IVPB 11/02/20 14:00 11/09/20 13:59 11/08/20 06:15 Polyethylene Glycol (Miralax) 17 gm HSPRN PRN ORAL Constipation 11/02/20 21:00 12/02/20 20:59 Sitagliptin Phosphate (Januvia) 25 mg ACBREAKFAST ORAL 11/06/20 10:30 12/06/20 10:29 11/08/20 06:17 Assessment/Plan Problem List: (1) ESRD (end stage renal disease) on dialysis ICD Codes: N18.6 - End stage renal disease; Z99.2 - Dependence on renal dialysis SNOMED: 813920604, 867527988 (2) Hypoglycemia ICD Codes: E16.2 - Hypoglycemia, unspecified SNOMED: 751582575, 018133846 (3) Abdominal distension ICD Codes: R14.0 - Abdominal distension (gaseous) SNOMED: 66326859 (4) Acute encephalopathy ICD Codes: G93.40 - Encephalopathy, unspecified SNOMED: 66678554, 223248974 (5) NSTEMI (non-ST elevated myocardial infarction) ICD Codes: I21.4 - Non-ST elevation (NSTEMI) myocardial infarction SNOMED: 80317387 Status: stable Assessment/Plan: continue Januvia 25 mg daily no need for basal insulin for now hypoglycemia protocol in order Gunnar Barron MD Nov 08, 2020 07:43
--- NOTE | 2020-11-08 07:50 | NUR ---
NURSE NOTES: Patient seen sitting in chair watching TV receiving IV antibiotics. Patient fall safety education given. The call light within reach and floor is free of excess clutter. The patient complaints of no pain and all patients request have been met at this time.
[2020-11-08 08:00] VITALS: BP 151/53
--- NOTE | 2020-11-08 08:34 | Cardiology Progress Note ---
Assessment/Plan Status: stable Assessment/Plan Assessment/Plan: Metabolic Encephalopathy Hypoglycemia, Hypothermia Elevated troponin in setting of ESRD Bradycardia Right bundle branch block URI ESRD HLD SVT PLAN: Continue supportive care Mild IV fluids Maintain HD Trend troponin, no indication for cardiac cath - no CP/EKG changes RBBB stable no indication for intervention Restart beta blockers TTE pending Replete electrolytes Outpatient stress test when stable s/p Thoracentesis for moderate pleural effusion with improved breathing Continue crestor, check lipid panel Continue BP medications DASH diet Subjective Cardiovascular: Reports: no symptoms Respiratory: Reports: no symptoms Gastrointestinal/Abdominal: Reports: no symptoms Genitourinary: Reports: no symptoms Subjective No acute events, s/p thoracentesis with improved breathing, no arrhythmias SVT noted over the weekend TTE pending Objective Last 24 Hour Vital Signs Date Time Temp Pulse Resp B/P (MAP) Pulse Ox O2 Delivery O2 Flow Rate FiO2 11/08/20 04:00 76 11/08/20 04:00 97.5 74 20 154/54 (87) 98 11/08/20 00:00 73 11/08/20 00:00 97.5 75 20 135/37 (69) 98 11/07/20 21:00 Nasal Cannula 2.0 11/07/20 20:00 97.9 79 20 153/53 (86) 96 11/07/20 20:00 79 11/07/20 16:07 99.7 78 18 140/48 (78) 95 11/07/20 16:00 75 11/07/20 12:49 79 11/07/20 12:00 98.0 76 19 149/62 (91) 98 11/07/20 09:35 Nasal Cannula 2.0 General Appearance: no apparent distress, alert EENT: PERRL/EOMI, normal ENT inspection, TMs normal, pharynx normal Neck: non-tender, normal alignment, supple, normal inspection Rhythm: NSR, SVT Cardiovascular: normal peripheral pulses, normal rate, regular rhythm Respiratory/Chest: chest wall non-tender, lungs clear Abdomen: normal bowel sounds, non tender Extremities: normal range of motion, non-tender, normal inspection Neurologic: sales support representative II-XII grossly normal, no motor/sensory deficits Intake and Output 11/07/20 11/08/20 19:00 07:00 Intake Total 1780 ml 60 ml Balance 1780 ml 60 ml Intake Oral 1560 ml 60 ml IV Total 220 ml # Voids 5 1 # Bowel Movements 4 Laboratory Tests Test 11/07/20 11:58 11/07/20 22:05 11/08/20 05:50 POC Whole Blood Glucose Pending 214 MG/DL (74-106) H White Blood Count 9.2 K/UL (4.8-10.8) Red Blood Count 2.52 M/UL (4.20-5.40) L Hemoglobin 7.6 G/DL (12.0-16.0) L Hematocrit 23.8 % (37.0-47.0) L Mean Corpuscular Volume 94 FL (80-99) Mean Corpuscular Hemoglobin 30.1 PG (27.0-31.0) Mean Corpuscular Hemoglobin Concent 31.9 G/DL (32.0-36.0) L Red Cell Distribution Width 15.0 % (11.6-14.8) H Platelet Count 356 K/UL (150-450) Mean Platelet Volume 6.5 FL (6.5-10.1) Neutrophils (%) (Auto) % (45.0-75.0) Lymphocytes (%) (Auto) % (20.0-45.0) Monocytes (%) (Auto) % (1.0-10.0) Eosinophils (%) (Auto) % (0.0-3.0) Basophils (%) (Auto) % (0.0-2.0) Neutrophils % (Manual) Pending Lymphocytes % (Manual) Pending Platelet Estimate Pending Platelet Morphology Pending Sodium Level 141 MMOL/L (136-145) Potassium Level 4.1 MMOL/L (3.5-5.1) Chloride Level 104 MMOL/L (98-107) Carbon Dioxide Level 26 MMOL/L (21-32) Anion Gap 11 mmol/L (5-15) Blood Urea Nitrogen 51 mg/dL (7-18) H Creatinine 7.8 MG/DL (0.55-1.30) H Estimat Glomerular Filtration Rate 5.0 mL/min (>60) Glucose Level 111 MG/DL (74-106) H Calcium Level 8.1 MG/DL (8.5-10.1) L Phosphorus Level 6.9 MG/DL (2.5-4.9) H Magnesium Level 2.1 MG/DL (1.8-2.4) Total Bilirubin 0.3 MG/DL (0.2-1.0) Aspartate Amino Transf (AST/SGOT) 16 U/L (15-37) Alanine Aminotransferase (ALT/SGPT) 13 U/L (12-78) Alkaline Phosphatase 146 U/L (46-116) H Total Protein 6.6 G/DL (6.4-8.2) Albumin 2.0 G/DL (3.4-5.0) L Globulin 4.6 g/dL Albumin/Globulin Ratio 0.4 (1.0-2.7) L Microbiology Date/Time Source Procedure Growth Status 11/06/20 07:00 Stool Clostridium difficile Toxin Assay - Final Complete FilsoTab treadwell MD Nov 08, 2020 08:34
--- NOTE | 2020-11-08 08:54 | NUR ---
CASE MANAGEMENT:REVIEW 11/05/20 SI: ACUTE METABOLIC ENCEPHALOPATHY HYPOGLYCEMIA. NSTEMI. ESRD 975 74 20 154/54 98% ON 2L/NC H/H-7.6/23.8 BUN+51 CR+7.8 IS: ASA PO QD HEPARIN SQ Q8HRS IV ZOSYN Q8HRS NORVASC PO QD SS INSULIN AC+HS : TELEMETRY STATUS DCP: FROM HOME PLAN: PT EVAL HOME SAFETY EVAL
[2020-11-08] MEDS ORDERED: Metoprolol Succinate XL 25mg tab ORAL SCH (09:00)
[2020-11-08] MEDS: Aspirin Baby 81mg ORAL SCH (09:43)
--- NOTE | 2020-11-08 09:54 | Nephrology Progress Note ---
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- #Hypoglycemia #DM #Anemia #HTN HLD - HD today - increase amlodipine 10mg daily - monitor for volume overload - check iron panel-> adequate - add epo 4k TIW - check ferritin - check PTH - vitamin D - monitor hemoglobin time spent 35 min Subjective ROS Limited/Unobtainable: No Constitutional: Reports: weakness HEENT: Denies: no symptoms, eye pain, blurred vision, tearing, double vision, ear pain, ear discharge, nose pain, nose congestion, throat pain, throat swelling, mouth pain, mouth swelling, other Genitourinary: Denies: no symptoms, burning, discharge, frequency, flank pain, hematuria, incontinence, pain, urgency, other Neurologic/Psychiatric: Denies: no symptoms, anxiety, depressed, emotional problems, headache, numbness, paresthesia, pre-existing deficit, seizure, tingling, tremors, weakness, other Subjective HD today BP trend improved on amlodipine to 10mg daily Objective Objective Last 24 Hour Vital Signs Date Time Temp Pulse Resp B/P (MAP) Pulse Ox O2 Delivery O2 Flow Rate FiO2 11/08/20 09:43 75 154/54 11/08/20 09:43 75 154/54 11/08/20 04:00 76 11/08/20 04:00 97.5 74 20 154/54 (87) 98 11/08/20 00:00 73 11/08/20 00:00 97.5 75 20 135/37 (69) 98 11/07/20 21:00 Nasal Cannula 2.0 11/07/20 20:00 97.9 79 20 153/53 (86) 96 11/07/20 20:00 79 11/07/20 16:07 99.7 78 18 140/48 (78) 95 11/07/20 16:00 75 11/07/20 12:49 79 11/07/20 12:00 98.0 76 19 149/62 (91) 98 Intake and Output 11/07/20 11/08/20 19:00 07:00 Intake Total 1780 ml 60 ml Balance 1780 ml 60 ml Intake Oral 1560 ml 60 ml IV Total 220 ml # Voids 5 1 # Bowel Movements 4 Laboratory Tests 11/07/20 11:58: POC Whole Blood Glucose [Pending] 11/07/20 22:05: POC Whole Blood Glucose 214H 11/08/20 05:50: White Blood Count 9.2, Red Blood Count 2.52L, Hemoglobin 7.6L, Hematocrit 23.8L, Mean Corpuscular Volume 94, Mean Corpuscular Hemoglobin 30.1, Mean Corpuscular Hemoglobin Concent 31.9L, Red Cell Distribution Width 15.0H, Platelet Count 356, Mean Platelet Volume 6.5, Neutrophils (%) (Auto) , Lymphocytes (%) (Auto) , Monocytes (%) (Auto) , Eosinophils (%) (Auto) , Basophils (%) (Auto) , Neutrophils % (Manual) [Pending], Lymphocytes % (Manual) [Pending], Platelet Estimate [Pending], Platelet Morphology [Pending], Sodium Level 141, Potassium Level 4.1, Chloride Level 104, Carbon Dioxide Level 26, Anion Gap 11, Blood Urea Nitrogen 51H, Creatinine 7.8H, Estimat Glomerular Filtration Rate 5.0, Glucose Level 111H, Calcium Level 8.1L, Phosphorus Level 6.9H, Magnesium Level 2.1, Total Bilirubin 0.3, Aspartate Amino Transf (AST/SGOT) 16, Alanine Aminotransferase (ALT/SGPT) 13, Alkaline Phosphatase 146H, Total Protein 6.6, A lbumin 2.0L, Globulin 4.6, Albumin/Globulin Ratio 0.4L Height (Feet): 5 Height (Inches): 5.00 Weight (Pounds): 140 Belinda Fraire M.D. Nov 08, 2020 09:54
[2020-11-08 12:00] VITALS: BP 157/68
--- NOTE | 2020-11-08 12:55 | NUR ---
Patient has been titrated down to Room air and patients oxygen saturation is 95% and heart rate is 72 BPM within normal limits. The patient does not complaint of being short of breath or any pain.
[2020-11-08] MEDS: Amiodarone 200mg tab ORAL SCH (14:47)
[2020-11-08 16:00] VITALS: BP 124/65
--- NOTE | 2020-11-08 17:10 | Surgery Progress Note ---
Surgery Progress Note Subjective Symptoms: passing flatus Additional Comments worsening renal function HD as per nephro tolerating diet abd stable Objective Last 24 Hour Vital Signs Date Time Temp Pulse Resp B/P (MAP) Pulse Ox O2 Delivery O2 Flow Rate FiO2 11/08/20 12:00 78 11/08/20 12:00 97.8 77 20 157/68 (97) 98 11/08/20 09:43 75 154/54 11/08/20 09:43 75 154/54 11/08/20 09:00 Nasal Cannula 2.0 11/08/20 08:00 97.7 78 20 151/53 (85) 98 11/08/20 08:00 81 11/08/20 04:00 76 11/08/20 04:00 97.5 74 20 154/54 (87) 98 11/08/20 00:00 73 11/08/20 00:00 97.5 75 20 135/37 (69) 98 11/07/20 21:00 Nasal Cannula 2.0 11/07/20 20:00 97.9 79 20 153/53 (86) 96 11/07/20 20:00 79 I&O Intake and Output 11/07/20 11/08/20 19:00 07:00 Intake Total 1780 ml 60 ml Balance 1780 ml 60 ml Intake Oral 1560 ml 60 ml IV Total 220 ml # Voids 5 1 # Bowel Movements 4 Cardiovascular: RSR Respiratory: decreased breath sounds Abdomen: soft, flat, non-tender, present bowel sounds, non-distended Extremities: no edema, no tenderness, no cyanosis Laboratory Tests Test 11/07/20 22:05 11/08/20 05:50 11/08/20 11:35 POC Whole Blood Glucose 214 MG/DL (74-106) H 154 MG/DL (74-106) H White Blood Count 9.2 K/UL (4.8-10.8) Red Blood Count 2.52 M/UL (4.20-5.40) L Hemoglobin 7.6 G/DL (12.0-16.0) L Hematocrit 23.8 % (37.0-47.0) L Mean Corpuscular Volume 94 FL (80-99) Mean Corpuscular Hemoglobin 30.1 PG (27.0-31.0) Mean Corpuscular Hemoglobin Concent 31.9 G/DL (32.0-36.0) L Red Cell Distribution Width 15.0 % (11.6-14.8) H Platelet Count 356 K/UL (150-450) Mean Platelet Volume 6.5 FL (6.5-10.1) Neutrophils (%) (Auto) % (45.0-75.0) Lymphocytes (%) (Auto) % (20.0-45.0) Monocytes (%) (Auto) % (1.0-10.0) Eosinophils (%) (Auto) % (0.0-3.0) Basophils (%) (Auto) % (0.0-2.0) Differential Total Cells Counted 100 Neutrophils % (Manual) 80 % (45-75) H Lymphocytes % (Manual) 11 % (20-45) L Monocytes % (Manual) 9 % (1-10) Eosinophils % (Manual) 0 % (0-3) Basophils % (Manual) 0 % (0-2) Band Neutrophils 0 % (0-8) Platelet Estimate Adequate Platelet Morphology Normal Hypochromasia 1+ Anisocytosis 1+ Sodium Level 141 MMOL/L (136-145) Potassium Level 4.1 MMOL/L (3.5-5.1) Chloride Level 104 MMOL/L (98-107) Carbon Dioxide Level 26 MMOL/L (21-32) Anion Gap 11 mmol/L (5-15) Blood Urea Nitrogen 51 mg/dL (7-18) H Creatinine 7.8 MG/DL (0.55-1.30) H Estimat Glomerular Filtration Rate 5.0 mL/min (>60) Glucose Level 111 MG/DL (74-106) H Calcium Level 8.1 MG/DL (8.5-10.1) L Phosphorus Level 6.9 MG/DL (2.5-4.9) H Magnesium Level 2.1 MG/DL (1.8-2.4) Total Bilirubin 0.3 MG/DL (0.2-1.0) Aspartate Amino Transf (AST/SGOT) 16 U/L (15-37) Alanine Aminotransferase (ALT/SGPT) 13 U/L (12-78) Alkaline Phosphatase 146 U/L (46-116) H Total Protein 6.6 G/DL (6.4-8.2) Albumin 2.0 G/DL (3.4-5.0) L Globulin 4.6 g/dL Albumin/Globulin Ratio 0.4 (1.0-2.7) L Plan Problems: (1) NSTEMI (non-ST elevated myocardial infarction) (2) Acute encephalopathy (3) Abdominal distension Assessment & Plan: 85F recently found down here by EMS hypoglycemic, abnormal labs, abd distention noted. patient with minimal abd complaints. mild distention noted on exam but likely baseline seems to have been losing weight recently. bmi 23. alb noted passing flatus and had BM this afternoon bm wnl no n/v/f/c tolerating oral intake hold on imaging for now okay for diet will monitor clinically with physical exam thank you exam improved overall improving no n/v/f/c tolerating diet (4) Hypoglycemia (5) ESRD (end stage renal disease) on dialysis Scout Martinez Nov 08, 2020 17:10
--- NOTE | 2020-11-08 17:25 | Infectious Diseases Prog Note ---
Assessment/Plan Assessment/Plan A) 1) complicated uti 2) possible pna - ? aspiration pna, ? cap, effusion - ? parapneumonic vs renal failure related, doubt empyema 3) covid - 19 testing negative 4) esrd, hd, anemia, dm, htn, HLD, nstemi, cad, encephalopathy 5) allergies - nkda 6) fh-nc, sh-neg, mar noted, d/w RN 7) notes and records reviewed P) 1) zosyn - finish course, consider augmentin x 3 days more 2) monitor labs and chest x-ray 3) cultures noted 4) continue mgt/treatment per primary and consultants 5) will f/u 6) clinically improved Subjective Constitutional: Reports: fatigue; Denies: fever HEENT: Denies: congestion Respiratory: Denies: shortness of breath Cardiovascular: Denies: chest pain Gastrointestinal/Abdominal: Denies: nausea, vomiting, diarrhea Genitourinary: Reports: other - no cisneros Neurologic: Denies: headache Psychiatric: Denies: depression Skin: Denies: rash Hematologic: Denies: bleeding Musculoskeletal: Denies: pain Allergies: Coded Allergies: No Known Allergies (Unverified , 11/02/20) Objective Last 24 Hour Vital Signs Date Time Temp Pulse Resp B/P (MAP) Pulse Ox O2 Delivery O2 Flow Rate FiO2 11/08/20 12:00 78 11/08/20 12:00 97.8 77 20 157/68 (97) 98 11/08/20 09:43 75 154/54 11/08/20 09:43 75 154/54 11/08/20 09:00 Nasal Cannula 2.0 11/08/20 08:00 97.7 78 20 151/53 (85) 98 11/08/20 08:00 81 11/08/20 04:00 76 11/08/20 04:00 97.5 74 20 154/54 (87) 98 11/08/20 00:00 73 11/08/20 00:00 97.5 75 20 135/37 (69) 98 11/07/20 21:00 Nasal Cannula 2.0 11/07/20 20:00 97.9 79 20 153/53 (86) 96 11/07/20 20:00 79 Height (Feet): 5 Height (Inches): 5.00 Weight (Pounds): 140 General Appearance: no acute distress HEENT: normocephalic, atraumatic, anicteric, mucous membranes moist Respiratory/Chest: crackles/rales, rhonchi - bilaterally Cardiovascular: normal rate, regular rhythm, no gallop/murmur Abdomen: normal bowel sounds, soft, non tender, no organomegaly, non distended Genitourinary: other - no cisneros Extremities: no cyanosis Skin: no rash 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 Residual opacity at the lung base likely reflects residual pleural fluid, and/or pleural thickening and/or atelectasis. There is some consolidation of the right mid and lower lung as well, as well as there is mild generalized bilateral interstitial congestion. There is increasing pleural fluid on the left and increasing retrocardiac consolidation. No pneumothorax is demonstrated. The heart remains enlarged. Impression: Improved right pleural effusion, status post thoracentesis. No radiographically evident complication Increased smaller left pleural effusion Persistent interstitial edema Persistent right basilar opacity, likely combination of residual pleural fluid, atelectasis, and pleural thickening Chest x-ray - 11/06/20 - IMPRESSION: There is mild perihilar pulmonary edema. There are asymmetric infiltrates in the lung bases, right greater than left. This may represent atelectasis however superimposed pneumonia not excluded. Microbiology Date/Time Source Procedure Growth Status 11/06/20 07:00 Stool Clostridium difficile Toxin Assay - Final Complete 11/05/20 02:00 Rectum WBC Smear - Final Complete 11/01/20 07:12 Nasal Nares MRSA Culture - Final NO METHICILLIN RESISTANT STAPH AUREUS... Complete 11/01/20 06:10 Blood Blood Culture - Final NO GROWTH AFTER 5 DAYS Complete 11/01/20 04:44 Urine,Clean Catch Urine Culture - Final Mixed Urogenital Contaminants Complete Microbiology Date/Time Source Procedure Growth Status 11/06/20 07:00 Stool Clostridium difficile Toxin Assay - Final Complete Laboratory Tests Test 11/07/20 22:05 11/08/20 05:50 11/08/20 11:35 POC Whole Blood Glucose 214 MG/DL (74-106) H 154 MG/DL (74-106) H White Blood Count 9.2 K/UL (4.8-10.8) Red Blood Count 2.52 M/UL (4.20-5.40) L Hemoglobin 7.6 G/DL (12.0-16.0) L Hematocrit 23.8 % (37.0-47.0) L Mean Corpuscular Volume 94 FL (80-99) Mean Corpuscular Hemoglobin 30.1 PG (27.0-31.0) Mean Corpuscular Hemoglobin Concent 31.9 G/DL (32.0-36.0) L Red Cell Distribution Width 15.0 % (11.6-14.8) H Platelet Count 356 K/UL (150-450) Mean Platelet Volume 6.5 FL (6.5-10.1) Neutrophils (%) (Auto) % (45.0-75.0) Lymphocytes (%) (Auto) % (20.0-45.0) Monocytes (%) (Auto) % (1.0-10.0) Eosinophils (%) (Auto) % (0.0-3.0) Basophils (%) (Auto) % (0.0-2.0) Differential Total Cells Counted 100 Neutrophils % (Manual) 80 % (45-75) H Lymphocytes % (Manual) 11 % (20-45) L Monocytes % (Manual) 9 % (1-10) Eosinophils % (Manual) 0 % (0-3) Basophils % (Manual) 0 % (0-2) Band Neutrophils 0 % (0-8) Platelet Estimate Adequate Platelet Morphology Normal Hypochromasia 1+ Anisocytosis 1+ Sodium Level 141 MMOL/L (136-145) Potassium Level 4.1 MMOL/L (3.5-5.1) Chloride Level 104 MMOL/L (98-107) Carbon Dioxide Level 26 MMOL/L (21-32) Anion Gap 11 mmol/L (5-15) Blood Urea Nitrogen 51 mg/dL (7-18) H Creatinine 7.8 MG/DL (0.55-1.30) H Estimat Glomerular Filtration Rate 5.0 mL/min (>60) Glucose Level 111 MG/DL (74-106) H Calcium Level 8.1 MG/DL (8.5-10.1) L Phosphorus Level 6.9 MG/DL (2.5-4.9) H Magnesium Level 2.1 MG/DL (1.8-2.4) Total Bilirubin 0.3 MG/DL (0.2-1.0) Aspartate Amino Transf (AST/SGOT) 16 U/L (15-37) Alanine Aminotransferase (ALT/SGPT) 13 U/L (12-78) Alkaline Phosphatase 146 U/L (46-116) H Total Protein 6.6 G/DL (6.4-8.2) Albumin 2.0 G/DL (3.4-5.0) L Globulin 4.6 g/dL Albumin/Globulin Ratio 0.4 (1.0-2.7) L Current Medications Medications (Trade) Dose Ordered Sig/Scooter Route PRN Reason Start Time Stop Time Status Last Admin Dose Admin Acetaminophen (Tylenol) 650 mg Q6H PRN ORAL For Pain 11/02/20 13:00 12/02/20 12:59 11/02/20 17:21 Amiodarone HCl (Cordarone) 200 mg DAILY ORAL 11/08/20 14:15 02/06/21 14:14 11/08/20 14:47 Amlodipine Besylate (Norvasc) 10 mg DAILY ORAL 11/06/20 09:00 12/06/20 08:59 11/08/20 09:43 Apixaban (Eliquis) 2.5 mg BID ORAL 11/08/20 18:00 02/06/21 17:59 Aspirin (ASA) 81 mg DAILY ORAL 11/03/20 09:00 12/18/20 08:59 11/08/20 09:43 Carvedilol (Coreg) 25 mg EVERY 12 HOURS ORAL 11/09/20 09:00 12/09/20 08:59 Dextrose (Dextrose 50%) 25 ml Q30M PRN IV Hypoglycemia 11/02/20 12:15 01/31/21 12:14 Dextrose (Dextrose 50%) 50 ml Q30M PRN IV Hypoglycemia 11/02/20 12:15 01/31/21 12:14 Diphenhydramine HCl (Benadryl) 25 mg Q6H PRN ORAL Itching/Pruritis 11/02/20 12:30 12/02/20 12:29 Epoetin Feng (Epoetin Feng(ESRD on dialysis)) 4,000 unit SUN-SUN-SUN SUBQ 11/05/20 21:00 02/03/21 20:59 11/05/20 21:53 Famotidine (Pepcid) 20 mg DAILY ORAL 11/03/20 09:00 02/01/21 08:59 11/08/20 09:43 Hydralazine HCl (Apresoline) 10 mg Q4H PRN IV For SBP >160 11/02/20 13:00 01/31/21 12:59 Insulin Aspart (NovoLOG) BEFORE MEALS AND HS SUBQ 11/01/20 11:30 01/30/21 11:29 11/08/20 11:59 Piperacillin Sod/ Tazobactam Sod 2.25 gm/Sodium Chloride 110 ml @ 220 mls/hr Q8HR IVPB 11/02/20 14:00 11/09/20 23:59 11/08/20 14:48 Polyethylene Glycol (Miralax) 17 gm HSPRN PRN ORAL Constipation 11/02/20 21:00 12/02/20 20:59 Sevelamer Carbonate (Renvela) 800 mg THREE TIMES A DAY ORAL 11/08/20 13:00 02/06/21 12:59 11/08/20 12:31 Sitagliptin Phosphate (Januvia) 25 mg ACBREAKFAST ORAL 11/06/20 10:30 12/06/20 10:29 11/08/20 06:17 Eliu Cortez MD Nov 08, 2020 17:25
--- NOTE | 2020-11-08 17:27 | Pulmonology Progress Note ---
Subjective ROS Limited/Unobtainable: No Interval Events: s/p thoracentesis HEENT: Repors: no symptoms Respiratory: Reports: no symptoms Cardiovascular: Reports: no symptoms Psychiatric: Denies: depression Skin: Denies: rash Musculoskeletal: Denies: pain Allergies: Coded Allergies: No Known Allergies (Unverified , 11/02/20) Objective Last 24 Hour Vital Signs Date Time Temp Pulse Resp B/P (MAP) Pulse Ox O2 Delivery O2 Flow Rate FiO2 11/08/20 12:00 78 11/08/20 12:00 97.8 77 20 157/68 (97) 98 11/08/20 09:43 75 154/54 11/08/20 09:43 75 154/54 11/08/20 09:00 Nasal Cannula 2.0 11/08/20 08:00 97.7 78 20 151/53 (85) 98 11/08/20 08:00 81 11/08/20 04:00 76 11/08/20 04:00 97.5 74 20 154/54 (87) 98 11/08/20 00:00 73 11/08/20 00:00 97.5 75 20 135/37 (69) 98 11/07/20 21:00 Nasal Cannula 2.0 11/07/20 20:00 97.9 79 20 153/53 (86) 96 11/07/20 20:00 79 Intake and Output 11/07/20 11/08/20 19:00 07:00 Intake Total 1780 ml 60 ml Balance 1780 ml 60 ml Intake Oral 1560 ml 60 ml IV Total 220 ml # Voids 5 1 # Bowel Movements 4 General Appearance: WD/WN, no acute distress HEENT: normocephalic, atraumatic Respiratory: decreased breath sounds Cardiovascular: normal peripheral pulses, normal rate, regular rhythm Abdomen: soft, non tender Microbiology Date/Time Source Procedure Growth Status 11/06/20 07:00 Stool Clostridium difficile Toxin Assay - Final Complete Laboratory Tests 11/07/20 22:05: POC Whole Blood Glucose 214H 11/08/20 05:50: White Blood Count 9.2, Red Blood Count 2.52L, Hemoglobin 7.6L, Hematocrit 23.8L, Mean Corpuscular Volume 94, Mean Corpuscular Hemoglobin 30.1, Mean Corpuscular Hemoglobin Concent 31.9L, Red Cell Distribution Width 15.0H, Platelet Count 356, Mean Platelet Volume 6.5, Neutrophils (%) (Auto) , Lymphocytes (%) (Auto) , Monocytes (%) (Auto) , Eosinophils (%) (Auto) , Basophils (%) (Auto) , Differential Total Cells Counted 100, Neutrophils % (Manual) 80H, Lymphocytes % (Manual) 11L, Monocytes % (Manual) 9, Eosinophils % (Manual) 0, Basophils % (Manual) 0, Band Neutrophils 0, Platelet Estimate Adequate, Platelet Morphology Normal, Hypochromasia 1+, Anisocytosis 1+, Sodium Level 141, Potassium Level 4.1, Chloride Level 104, Carbon Dioxide Level 26, Anion Gap 11, Blood Urea Nitrogen 51H, Creatinine 7.8H, Estimat Glomerular Filtration Rate 5.0, Glucose Level 111H, Calcium Level 8.1L, Phosphorus Level 6.9H, Magnesium Level 2.1, Total Bilirubin 0.3, Aspartate Amino Transf (AST/SGOT) 16, Alanine Aminotransferase (ALT/SGPT) 13, Alkaline Phosphatase 146H, Total Protein 6.6, Albumin 2.0L, Globulin 4.6, Albumin/Globulin Ratio 0.4L 11/08/20 11:35: POC Whole Blood Glucose 154H Current Medications Medications (Trade) Dose Ordered Sig/Scooter Route PRN Reason Start Time Stop Time Status Last Admin Dose Admin Acetaminophen (Tylenol) 650 mg Q6H PRN ORAL For Pain 11/02/20 13:00 12/02/20 12:59 11/02/20 17:21 Amiodarone HCl (Cordarone) 200 mg DAILY ORAL 11/08/20 14:15 02/06/21 14:14 11/08/20 14:47 Amlodipine Besylate (Norvasc) 10 mg DAILY ORAL 11/06/20 09:00 12/06/20 08:59 11/08/20 09:43 Apixaban (Eliquis) 2.5 mg BID ORAL 11/08/20 18:00 02/06/21 17:59 Aspirin (ASA) 81 mg DAILY ORAL 11/03/20 09:00 12/18/20 08:59 11/08/20 09:43 Carvedilol (Coreg) 25 mg EVERY 12 HOURS ORAL 11/09/20 09:00 12/09/20 08:59 Dextrose (Dextrose 50%) 25 ml Q30M PRN IV Hypoglycemia 12/15/20 12:15 01/31/21 12:14 Dextrose (Dextrose 50%) 50 ml Q30M PRN IV Hypoglycemia 11/02/20 12:15 01/31/21 12:14 Diphenhydramine HCl (Benadryl) 25 mg Q6H PRN ORAL Itching/Pruritis 11/02/20 12:30 12/02/20 12:29 Epoetin Feng (Epoetin Feng(ESRD on dialysis)) 4,000 unit SUN-SUN-SUN SUBQ 11/05/20 21:00 02/03/21 20:59 11/05/20 21:53 Famotidine (Pepcid) 20 mg DAILY ORAL 11/03/20 09:00 02/01/21 08:59 11/08/20 09:43 Hydralazine HCl (Apresoline) 10 mg Q4H PRN IV For SBP >160 11/02/20 13:00 01/31/21 12:59 Insulin Aspart (NovoLOG) BEFORE MEALS AND HS SUBQ 11/01/20 11:30 01/30/21 11:29 11/08/20 11:59 Piperacillin Sod/ Tazobactam Sod 2.25 gm/Sodium Chloride 110 ml @ 220 mls/hr Q8HR IVPB 11/02/20 14:00 11/09/20 23:59 11/08/20 14:48 Polyethylene Glycol (Miralax) 17 gm HSPRN PRN ORAL Constipation 11/02/20 21:00 12/02/20 20:59 Sevelamer Carbonate (Renvela) 800 mg THREE TIMES A DAY ORAL 11/08/20 13:00 02/06/21 12:59 11/08/20 12:31 Sitagliptin Phosphate (Januvia) 25 mg ACBREAKFAST ORAL 11/06/20 10:30 12/06/20 10:29 11/08/20 06:17 Assessment/Plan Assessment/Plan Assessment/Plan 1. Large right pleural effusion. - s/p thoracentesis; 1.4L removed; follow-up CXR better 2. ESRD, on dialysis. 3. Hypoglycemia. 4. Diabetes mellitus. DISCUSSION: now s/p thoracentesis CXR improved seen after dialysis Discussed with primary MCari. and ID Agree with discharge planning with IV antibiotics Pleural fluid appears exudative however could be misleading due to dialysis status saturating well on low fl oxygen Ty Mauro MD Nov 08, 2020 17:27
[2020-11-08] MEDS: Eliquis 2.5mg tablet ORAL SCH (18:21)
--- NOTE | 2020-11-08 19:43 | General Progress Note ---
Subjective Allergies: Coded Allergies: No Known Allergies (Unverified , 11/02/20) Subjective No acute events overnight per nursing. Finally titrated off of oxygen. Seen on HD. Feeling much better. Diarrhea resolving. C. difficile negative. Seen by PT. Recommending home with home health. No other complaints. Denies any chest pain, fever, chills. Will restart on home meds and monitor patient. Patient apparently on 5 different BP meds and has h/o hypertensive emergency/urgency, so need to restart BP meds and ensure stability prior to D/C. D/w Cardiology Tele: still intermittent SVTs but improving. Asymptomatic, denies chest pain or SOB or palpitations. Review of systems: Constitutional: Denies: chills, diaphoresis, fever, malaise, weakness, HEENT: Denies: eye pain, blurred vision, double vision, ear pain, nose pain, throat pain, Cardiovascular: Denies: chest pain, edema, lightheadedness, palpitations Respiratory: Denies: cough, orthopnea, shortness of breath, SOB with excertion, SOB at rest, Gastrointestinal/Abdominal: Denies: abdominal pain, black stools, blood in stool, constipation, diarrhea, nausea, poor fluid intake vomiting, other Genitourinary: Denies: burning, discharge, frequency, Neurologic/Psychiatric: Denies: headache, numbness, paresthesia, new weakness, other Endocrine: Denies: excessive sweating, flushing, intolerance to cold, MSK: denies joint pains, swelling, stiffness Hematologic/Lymphatic: Denies: anemia, easy bleeding, easy bruising, Objective Last 24 Hour Vital Signs Date Time Temp Pulse Resp B/P (MAP) Pulse Ox O2 Delivery O2 Flow Rate FiO2 11/08/20 16:00 80 11/08/20 16:00 98.2 75 20 124/65 (84) 96 11/08/20 12:00 78 11/08/20 12:00 97.8 77 20 157/68 (97) 98 11/08/20 09:43 75 154/54 11/08/20 09:43 75 154/54 11/08/20 09:00 Nasal Cannula 2.0 11/08/20 08:00 97.7 78 20 151/53 (85) 98 11/08/20 08:00 81 11/08/20 04:00 76 11/08/20 04:00 97.5 74 20 154/54 (87) 98 11/08/20 00:00 73 11/08/20 00:00 97.5 75 20 135/37 (69) 98 11/07/20 21:00 Nasal Cannula 2.0 11/07/20 20:00 97.9 79 20 153/53 (86) 96 11/07/20 20:00 79 Intake and Output 11/07/20 11/08/20 19:00 07:00 Intake Total 1780 ml 60 ml Balance 1780 ml 60 ml Intake Oral 1560 ml 60 ml IV Total 220 ml # Voids 5 1 # Bowel Movements 4 Laboratory Tests 11/07/20 22:05: POC Whole Blood Glucose 214H 11/08/20 05:50: White Blood Count 9.2, Red Blood Count 2.52L, Hemoglobin 7.6L, Hematocrit 23.8L, Mean Corpuscular Volume 94, Mean Corpuscular Hemoglobin 30.1, Mean Corpuscular Hemoglobin Concent 31.9L, Red Cell Distribution Width 15.0H, Platelet Count 356, Mean Platelet Volume 6.5, Neutrophils (%) (Auto) , Lymphocytes (%) (Auto) , Monocytes (%) (Auto) , Eosinophils (%) (Auto) , Basophils (%) (Auto) , Differential Total Cells Counted 100, Neutrophils % (Manual) 80H, Lymphocytes % (Manual) 11L, Monocytes % (Manual) 9, Eosinophils % (Manual) 0, Basophils % (Manual) 0, Band Neutrophils 0, Platelet Estimate Adequate, Platelet Morphology Normal, Hypochromasia 1+, Anisocytosis 1+, Sodium Level 141, Potassium Level 4.1, Chloride Level 104, Carbon Dioxide Level 26, Anion Gap 11, Blood Urea Nitrogen 51H, Creatinine 7.8H, Estimat Glomerular Filtration Rate 5.0, Glucose Level 111H, Calcium Level 8.1L, Phosphorus Level 6.9H, Magnesium Level 2.1, Total Bilirubin 0.3, Aspartate Amino Transf (AST/SGOT) 16, Alanine Aminotransferase (ALT/SGPT) 13, Alkaline Phosphatase 146H, Total Protein 6.6, Albumin 2.0L, Globulin 4.6, Albumin/Globulin Ratio 0.4L 11/08/20 11:35: POC Whole Blood Glucose 154H Height (Feet): 5 Height (Inches): 5.00 Weight (Pounds): 140 Objective General: WDWN female in NAD, A&O x 4 HEENT: Normocephalic cephalic atraumatic, pupils equal round reactive to light and accommodation, nares patent and no symmetrical, no tonsillar exudates, mucous membranes moist CV: Regular rate regular rhythm, no murmurs, rubs, or gallops Pulm: CTAB, no diminished sounds. No wheezes, rhonchi, or rales GI: Soft, nontender, nondistended, bowel sounds present Neuro: CN 2-12 intact bilaterally, no focal signs. Ext: No lower extremity edema bilaterally Skin: no rashes lesions or ulcers Msk: Joints symmetrical in upper extremity and lower extremity bilaterally, no joint swelling. Lymph: No lymphadenopathy in upper extremity and lower extremity Assessment/Plan Status: stable Assessment/Plan: #Acute UTI #Concern for possible aspiration pna #Exudative Right sided pleural effusion, suspect from pneumonia. Appreciate Pulm input -> Likely due to ESRD which appear exudative even though transudative #acute hypoxic respiratory failure 2/2 Pna/Effusion- improving #Acute Metabolic Encephalopathy due to hypoglycemia and infection as below - Resolved #Hypothermia - resolved Patient presented following BG 20s in the field. Due to insulin use in ESRD - CT Brain with no acute intracranial hemorrhage, or midline shift - BC x2: no growth - Covid neg - Abx - s/p Azithromycin - Complete 7 day course of Zosyn (11/02 - 11/08), s/p ceftriaxone in ED - D/c on Augmentin 500mg daily for 3 more days. D/w ID - Abx per ID - Pulm consult; Tirmizi - Thoracentesis 11/03: 1400 cc. F/u Cytology - Negative. D/w pathology - ID consult : [place]ooles - PT/OT -Repeat chest x-ray: asymmetric infiltrates. No effusion #Insulin Dependent T2DM #hypoglycemia - Hold insulin for now - ISS - Will need diabetic education - Endocrinology consult for better DM regimen at home: Dr. Barron - Patient takes varying doses of lantus. From 10 - 20 units - check A1C: 7.8 - Continue januvia 25mg PO daily #Acute diarrhea - resolving - check C diff: negative - stool WBC: rare WBC - stool culture: negative - hold laxatives #hypertension #h/o hypertensive urgency/emergency (Home meds Coreg 25mg BID, hydralazine 100mg Po Q8hr, imdur 60mg daily, lisinopril 10mg Po daily, procardia 90mg PO daily) - followed by Dr. Perkins as outpatient - amlodipine to 10mg daily - Restart on Coreg 25mg PO BID - d/c metoprolol - hold lisinopril, procardia, imdur and hydralazine for now - Ok to D/c once stable on home BP meds #Type 2 NSTEMI, suspect demand #SVT #Paroxysmal atrial fibrillation previously on eliquis per chart review - Aspirin 81mg daily. (switched from plavix. Unclear why patient on plavix vs. asa. Per neuro and cardiology ok for aspirin) - Eliquis 2.5mg BID - Amiodarone 200mg Po daily - crestor 10mg po daily. Check CK prior to re-initiating - Coreg as above - Outpatient watchman. Patient good candidate per Cardiology - EKG - Sinus bradycardia with RBBB - HR improving with rewarming - Cardiology consult: Dr. Camp - > no intervention - Repeat EKG: reviewed - Check TTE: reviewed #Elevated alk phos - check GGT: normal #ESRD (//sun) #hyperphosphatemia - Nephrology consulted, appreciate recs - renal phosphate binder per renal. Was on sevelamer 800mg PO TID as outpatient #HLD - continue crestor Diet - Carb consistent Heparin sq FENPPX DVTPPX: HSQ GI PPX: none Fluids: per nephro Diet: Diabetic/Renal PT/OT: pending Code status: Full Dispo: Home with Home health PT/OT Reason for Continued Hospitalization: hypoxia MIPS ([employer]-based Incentive Payment System) Applicable CPT: 44219, 46611 CHECK ALL THAT ARE MET: [] Measure #5 (CHF): All ages. Prescribe LIZ/ARB upon discharge for patients with left ventricular systolic dysfunction. If not, the reason is clearly documented in the medical chart [] Measure #8 (CHF): All ages. Prescribe a beta darshan upon discharge for patients with left ventricular systolic dysfunction. If not, the reason is clearly documented in the medical chart. [x] Measure #47: Advance care plan or surrogate decision maker documented in the medical record. [x] Measure #130 The provider has documented, updated, or reviewed the patients current medication list and has documented it in the patients note. [x] Measure #374 (All): Send report to referring provider. [] Measure #407(Sepsis due to MSSA bacteremia): Age 18+ Patient treated with a beta-lactam antibiotic (Nafcillin, Oxacillin or Cefazolin) as definitive therapy. MEDICAL COMPLEXITYHigh complexity medical decision making (need 2/3 categories)P roblem - need 4 points [x]Acute/new problem with new plan for workup (4 points, 1 max) [] Acute/new problem without additional workup (3 points, 1 max) [] Unstable chronic problem actively being managed (2 point each, 2 max) [x] Stable chronic problem actively being managed (1 point each, 2 max) [x] Self-limited/transient process (constipation, muscle ache, etc) (1 point e ach, 2 max) Data - need 4 points [x] Reviewed labs/imaging studies (1 points, 2 max) [x] Independent review of imaging (EKG, xrays, etc) (2 points, 2 max) [x] Discussed case with consult/other MD/RN (2 points, 2 max) High Risk - qualify if have one of the following: [] Severe exacerbation of acute problem, acute mental status change, IV narcotics, monitoring drug levels (vancomycin, INR, tacrolimus etc) I spent 38 minutes on this patient's case, and 22 mins was dedicated to counseling and/or care coordination. Discussed with ID, pulm, neuro and cardiology, RN at bedside. I spent an additional 32 minutes of further face to face time on counseling and care coordination in addition to usual care as detailed above. Discussed with arabic interpretor at bedside. Went over home meds in detail, long discussion, multiple questions. Time of note may not reflect time of encounter Alec Saleh D.O. Nov 08, 2020 19:43
--- NOTE | 2020-11-08 19:45 | NUR ---
NURSE NOTES: Patient received from Hakan MORRIS. Patient in stable condition. Awake alert and oriented x4 serbian speaking. No c/o pain and no s/s of distress. Saturating well on room air. IV site patent and intact on Right Hand and Right FA both 24G. MD aware of labs as endorsed by morning nurse. Bed in lowest position and locked. Call light and bedside table within reach. Will continue plan of care.
--- NOTE | 2020-11-08 19:51 | Neurology Progress Note ---
Interim History Interim History ROS Limited/Unobtainable: No Interim History no new deficits Objective Physical Exam Last Vital Signs Date Time Temp Pulse Resp B/P (MAP) Pulse Ox O2 Delivery O2 Flow Rate FiO2 11/08/20 16:00 80 11/08/20 16:00 98.2 20 124/65 (84) 96 11/08/20 09:00 Nasal Cannula 2.0 Laboratory Tests Test 11/07/20 22:05 11/08/20 05:50 11/08/20 11:35 POC Whole Blood Glucose 214 MG/DL (74-106) H 154 MG/DL (74-106) H White Blood Count 9.2 K/UL (4.8-10.8) Red Blood Count 2.52 M/UL (4.20-5.40) L Hemoglobin 7.6 G/DL (12.0-16.0) L Hematocrit 23.8 % (37.0-47.0) L Mean Corpuscular Volume 94 FL (80-99) Mean Corpuscular Hemoglobin 30.1 PG (27.0-31.0) Mean Corpuscular Hemoglobin Concent 31.9 G/DL (32.0-36.0) L Red Cell Distribution Width 15.0 % (11.6-14.8) H Platelet Count 356 K/UL (150-450) Mean Platelet Volume 6.5 FL (6.5-10.1) Neutrophils (%) (Auto) % (45.0-75.0) Lymphocytes (%) (Auto) % (20.0-45.0) Monocytes (%) (Auto) % (1.0-10.0) Eosinophils (%) (Auto) % (0.0-3.0) Basophils (%) (Auto) % (0.0-2.0) Differential Total Cells Counted 100 Neutrophils % (Manual) 80 % (45-75) H Lymphocytes % (Manual) 11 % (20-45) L Monocytes % (Manual) 9 % (1-10) Eosinophils % (Manual) 0 % (0-3) Basophils % (Manual) 0 % (0-2) Band Neutrophils 0 % (0-8) Platelet Estimate Adequate Platelet Morphology Normal Hypochromasia 1+ Anisocytosis 1+ Sodium Level 141 MMOL/L (136-145) Potassium Level 4.1 MMOL/L (3.5-5.1) Chloride Level 104 MMOL/L (98-107) Carbon Dioxide Level 26 MMOL/L (21-32) Anion Gap 11 mmol/L (5-15) Blood Urea Nitrogen 51 mg/dL (7-18) H Creatinine 7.8 MG/DL (0.55-1.30) H Estimat Glomerular Filtration Rate 5.0 mL/min (>60) Glucose Level 111 MG/DL (74-106) H Calcium Level 8.1 MG/DL (8.5-10.1) L Phosphorus Level 6.9 MG/DL (2.5-4.9) H Magnesium Level 2.1 MG/DL (1.8-2.4) Total Bilirubin 0.3 MG/DL (0.2-1.0) Aspartate Amino Transf (AST/SGOT) 16 U/L (15-37) Alanine Aminotransferase (ALT/SGPT) 13 U/L (12-78) Alkaline Phosphatase 146 U/L (46-116) H Total Protein 6.6 G/DL (6.4-8.2) Albumin 2.0 G/DL (3.4-5.0) L Globulin 4.6 g/dL Albumin/Globulin Ratio 0.4 (1.0-2.7) L Neurologic Exam Mental Status: awake Objective ao x 2 antigravity all 4 nc at neck supple abd soft resp no distress Impression/Recommendations Problems: (1) NSTEMI (non-ST elevated myocardial infarction) (2) Acute encephalopathy (3) Abdominal distension (4) Hypoglycemia (5) ESRD (end stage renal disease) on dialysis Status: stable Diagnostic Impression improved metabolic encephalopathy, less likely vascular afib cont eliquis cont asa hold on mri for now cont delirium precautions medical support pt ot has stairs at home Nathaniel Doyle MD Nov 08, 2020 19:51
--- NOTE | 2020-11-08 19:57 | NUR ---
NURSE HAND-OFF REPORT: Important Events on Shift:[HD: 2Liters, initiated home meds] Patient Status: [AAOX4, stable, full code] Diet: [CCHO LOW] Pending Orders: [N/A] Pending Results/Labs:[N/A] Pending MD notification:[N/A] Latest Vital Signs: Temperature 98.2 , Pulse 80 , B/P 124 /65 , Respiratory Rate 20 , O2 SAT 96 , Nasal Cannula, O2 Flow Rate 2.0 . Vital Sign Comment: [] EKG Rhythm: Sinus Rhythm Rhythm change?: N MD Notified?: Y Venkatesh SNELL MD Response: No New Orders Received Latest Bolaños Fall Score: 85 Fall Risk: High Risk Safety Measures: Call light Within Reach, Bed Alarm Zone 1, Side Rails Side Rails x2, Bed position Low and Locked. Fall Precautions: Yellow Socks Yellow Gown Door Sign Patient Fall Education Report given to [ARTURO Vences].
[2020-11-08 20:00] VITALS: BP 135/59
[2020-11-08] MEDS: Epoetin Alfa-EPBX(ESRD on dialysis)4000 units/ml vial SUBQ SCH (20:37)
[2020-11-09] VITALS: BP 148/57
[2020-11-09 04:00] VITALS: BP 128/57
[2020-11-09] MEDS: NovoLOG Insulin Flexpen SUBQ SCH ×3 (06:30→16:30)
--- NOTE | 2020-11-09 06:31 | General Progress Note ---
Subjective ROS Limited/Unobtainable: Yes Allergies: Coded Allergies: No Known Allergies (Unverified , 11/02/20) Subjective events noted glucose values in fair control Item Value Date Time Bedside Blood Glucose 203 mg/dl H 11/08/20 2100 Bedside Blood Glucose 163 mg/dl H 11/08/20 1728 Bedside Blood Glucose 154 mg/dl H 11/08/20 1159 Bedside Blood Glucose 109 mg/dl 11/08/20 0630 Objective Last 24 Hour Vital Signs Date Time Temp Pulse Resp B/P (MAP) Pulse Ox O2 Delivery O2 Flow Rate FiO2 11/09/20 04:00 99.0 79 20 128/57 (80) 94 11/09/20 00:00 98.6 76 19 148/57 (87) 95 11/09/20 00:00 74 11/08/20 21:00 Room Air 11/08/20 20:00 75 11/08/20 20:00 99.0 75 20 135/59 (84) 94 11/08/20 16:00 80 11/08/20 16:00 98.2 75 20 124/65 (84) 96 11/08/20 12:00 78 11/08/20 12:00 97.8 77 20 157/68 (97) 98 11/08/20 09:43 75 154/54 11/08/20 09:43 75 154/54 11/08/20 09:00 Nasal Cannula 2.0 11/08/20 08:00 97.7 78 20 151/53 (85) 98 11/08/20 08:00 81 Intake and Output 11/08/20 11/09/20 19:00 07:00 Intake Total 1510 ml Output Total 4450 ml Balance -2940 ml Intake Oral 210 ml IV Total 1200 ml Other 100 ml Output Urine Total 450 ml Hemodialysis UF 4000 ml # Voids 2 # Bowel Movements 1 Laboratory Tests 11/08/20 11:35: POC Whole Blood Glucose 154H Height (Feet): 5 Height (Inches): 5.00 Weight (Pounds): 140 General Appearance: no apparent distress Neck: normal alignment Cardiovascular: normal rate Respiratory/Chest: decreased breath sounds Abdomen: normal bowel sounds Objective Current Medications Medications (Trade) Dose Ordered Sig/Scooter Route PRN Reason Start Time Stop Time Status Last Admin Dose Admin Acetaminophen (Tylenol) 650 mg Q6H PRN ORAL For Pain 11/02/20 13:00 12/02/20 12:59 11/02/20 17:21 Amiodarone HCl (Cordarone) 200 mg DAILY ORAL 11/08/20 14:15 02/06/21 14:14 11/08/20 14:47 Amlodipine Besylate (Norvasc) 10 mg DAILY ORAL 11/06/20 09:00 12/06/20 08:59 11/08/20 09:43 Amoxicillin/ Clavulanate Potassium (Augmentin) 500 mg Q24HRS ORAL 11/08/20 21:00 11/15/20 20:59 11/08/20 20:33 Apixaban (Eliquis) 2.5 mg BID ORAL 11/08/20 18:00 02/06/21 17:59 11/08/20 18:21 Aspirin (ASA) 81 mg DAILY ORAL 11/03/20 09:00 12/18/20 08:59 11/08/20 09:43 Carvedilol (Coreg) 25 mg EVERY 12 HOURS ORAL 11/09/20 09:00 12/09/20 08:59 Dextrose (Dextrose 50%) 25 ml Q30M PRN IV Hypoglycemia 11/02/20 12:15 01/31/21 12:14 Dextrose (Dextrose 50%) 50 ml Q30M PRN IV Hypoglycemia 11/02/20 12:15 01/31/21 12:14 Diphenhydramine HCl (Benadryl) 25 mg Q6H PRN ORAL Itching/Pruritis 11/02/20 12:30 12/02/20 12:29 Epoetin Feng (Epoetin Feng(ESRD on dialysis)) 4,000 unit SUN-SUN-SUN SUBQ 11/05/20 21:00 02/03/21 20:59 11/08/20 20:37 Famotidine (Pepcid) 20 mg DAILY ORAL 11/03/20 09:00 02/01/21 08:59 11/08/20 09:43 Hydralazine HCl (Apresoline) 10 mg Q4H PRN IV For SBP >160 11/02/20 13:00 01/31/21 12:59 Insulin Aspart (NovoLOG) BEFORE MEALS AND HS SUBQ 11/01/20 11:30 01/30/21 11:29 11/08/20 20:34 Polyethylene Glycol (Miralax) 17 gm HSPRN PRN ORAL Constipation 11/02/20 21:00 12/02/20 20:59 Sevelamer Carbonate (Renvela) 800 mg THREE TIMES A DAY ORAL 11/08/20 13:00 02/06/21 12:59 11/08/20 18:21 Sitagliptin Phosphate (Januvia) 25 mg ACBREAKFAST ORAL 11/06/20 10:30 12/06/20 10:29 11/08/20 06:17 Assessment/Plan Problem List: (1) ESRD (end stage renal disease) on dialysis ICD Codes: N18.6 - End stage renal disease; Z99.2 - Dependence on renal dialysis SNOMED: 777687239, 034906717 (2) Hypoglycemia ICD Codes: E16.2 - Hypoglycemia, unspecified SNOMED: 065236672, 726967369 (3) Abdominal distension ICD Codes: R14.0 - Abdominal distension (gaseous) SNOMED: 15442654 (4) Acute encephalopathy ICD Codes: G93.40 - Encephalopathy, unspecified SNOMED: 43509389, 794185659 (5) NSTEMI (non-ST elevated myocardial infarction) ICD Codes: I21.4 - Non-ST elevation (NSTEMI) myocardial infarction SNOMED: 96965576 Status: stable Assessment/Plan: continue Januvia 25 mg daily no need for basal insulin for now hypoglycemia protocol in order Gunnar Barron MD Nov 09, 2020 06:31
[2020-11-09] MEDS: sitaGLIPtin 25mg tab ORAL SCH (06:40)
--- NOTE | 2020-11-09 07:30 | NUR ---
NURSE NOTES: Received pt from ARTURO Vences, pt is awake and alert, pt has NC 2lit, pt is on continues heart monitoring, pt has intact iv access RH 24G and RFA 24G SL. pt has BRYNN shunt, Pt is eating breakfast by observation. no complain of pain at this moment. All needs attended, bed is locked and is in the lowest position, call light within easy reach. will continue to monitor.
--- NOTE | 2020-11-09 07:46 | NUR ---
NURSE HAND-OFF REPORT: Important Events on Shift:[Room air at night, requested nasal oxygen in AM @ 2L] Patient Status: [FC, Awake alert oirneted x4] Diet: [CCHO low] Pending Orders: [] Pending Results/Labs:[] Pending MD notification:[] Latest Vital Signs: Temperature 99.0 , Pulse 74 , B/P 128 /57 , Respiratory Rate 20 , O2 SAT 94 , Nasal Cannula, O2 Flow Rate 2.0 . Vital Sign Comment: [] EKG Rhythm: SR c 1st AVB and BBB Rhythm change?: N MD Notified?: Tootie SNELL MD Response: No New Orders Received Latest Bolaños Fall Score: 85 Fall Risk: High Risk Safety Measures: Call light Within Reach, Bed Alarm Zone 1, Side Rails Side Rails x2, Bed position Low and Locked. Fall Precautions: Yellow Socks Yellow Gown Door Sign Patient Fall Education Report given to [Drew RN].
[2020-11-09 08:00] VITALS: BP 129/81
--- NOTE | 2020-11-09 08:29 | Nephrology Progress Note ---
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- #Hypoglycemia #DM #Anemia #HTN HLD - HD today - increase amlodipine 10mg daily - monitor for volume overload - check iron panel-> adequate - add epo 4k TIW - check ferritin - check PTH - vitamin D - monitor hemoglobin time spent 35 min Subjective ROS Limited/Unobtainable: No Constitutional: Reports: weakness HEENT: Denies: no symptoms, eye pain, blurred vision, tearing, double vision, ear pain, ear discharge, nose pain, nose congestion, throat pain, throat swelling, mouth pain, mouth swelling, other Genitourinary: Denies: no symptoms, burning, discharge, frequency, flank pain, hematuria, incontinence, pain, urgency, other Neurologic/Psychiatric: Denies: no symptoms, anxiety, depressed, emotional problems, headache, numbness, paresthesia, pre-existing deficit, seizure, tingling, tremors, weakness, other Subjective HD today BP trend improved on amlodipine to 10mg daily Objective Objective Last 24 Hour Vital Signs Date Time Temp Pulse Resp B/P (MAP) Pulse Ox O2 Delivery O2 Flow Rate FiO2 11/09/20 08:00 96.7 61 18 129/81 (97) 95 11/09/20 04:00 99.0 79 20 128/57 (80) 94 11/09/20 04:00 74 11/09/20 00:00 98.6 76 19 148/57 (87) 95 11/09/20 00:00 74 11/08/20 21:00 Room Air 11/08/20 20:00 75 11/08/20 20:00 99.0 75 20 135/59 (84) 94 11/08/20 16:00 80 11/08/20 16:00 98.2 75 20 124/65 (84) 96 11/08/20 12:00 78 11/08/20 12:00 97.8 77 20 157/68 (97) 98 11/08/20 09:43 75 154/54 11/08/20 09:43 75 154/54 11/08/20 09:00 Nasal Cannula 2.0 Intake and Output 11/08/20 11/09/20 19:00 07:00 Intake Total 1510 ml 100 ml Output Total 4450 ml Balance -2940 ml 100 ml Intake Oral 210 ml 100 ml IV Total 1200 ml Other 100 ml Output Urine Total 450 ml Hemodialysis UF 4000 ml # Voids 2 1 # Bowel Movements 1 Laboratory Tests 11/08/20 11:35: POC Whole Blood Glucose 154H Height (Feet): 5 Height (Inches): 5.00 Weight (Pounds): 140 Belinda Fraire M.D. Nov 09, 2020 08:29
[2020-11-09] MEDS ORDERED: Carvedilol 25mg Tab ORAL SCH (09:00)
[2020-11-09] MEDS: Aspirin Baby 81mg ORAL SCH (09:26)
[2020-11-09] MEDS: Amiodarone 200mg tab ORAL SCH (09:26)
[2020-11-09] MEDS: Eliquis 2.5mg tablet ORAL SCH (09:27)
[2020-11-09 10:19] LABS: BASOPHILS % (AUTO) 0.9 % (0.0-2.0); EOSINOPHILS % (AUTO) 1.3 % (0.0-3.0); HEMATOCRIT 23.9 % (37.0-47.0); HEMOGLOBIN 8.2 G/DL (12.0-16.0); LYMPHOCYTES % (AUTO) 6.6 % (20.0-45.0); MEAN CORPUSCULAR VOLUME 90 FL (80-99); NEUTROPHILS % (AUTO) 83.2 % (45.0-75.0); PLATELET COUNT 396 K/UL (150-450); RED BLOOD COUNT 2.67 M/UL (4.20-5.40); RED CELL DISTRIBUTION WIDTH 16.6 % (11.6-14.8); WHITE BLOOD COUNT 12.5 K/UL (4.8-10.8)
[2020-11-09 10:39] LABS: PHOSPHORUS 5.4 MG/DL (2.5-4.9)
[2020-11-09 11:09] LABS: ALBUMIN 2.3 G/DL (3.4-5.0); ALBUMIN/GLOBULIN RATIO 0.5 (1.0-2.7); BILIRUBIN,TOTAL 0.4 MG/DL (0.2-1.0); CREATININE 6.2 MG/DL (0.55-1.30)
[2020-11-09 11:11] LABS: CREATINE KINASE 23 U/L (26-308)
[2020-11-09 12:00] VITALS: BP 152/61
--- NOTE | 2020-11-09 12:19 | NUR ---
*-*DISCHARGE PLANNING*-* PATIENT HAS BEEN ACCEPTED WITH: [facility] P: [phone] S/W JOANA , WILL SERVICE THIS PATIENT UPON DISCHARGE.
--- NOTE | 2020-11-09 12:34 | Surgery Progress Note ---
Surgery Progress Note Subjective Additional Comments wbc 12k thora fluid negative no n/v Objective Last 24 Hour Vital Signs Date Time Temp Pulse Resp B/P (MAP) Pulse Ox O2 Delivery O2 Flow Rate FiO2 11/09/20 09:26 61 129/81 11/09/20 09:26 61 129/81 11/09/20 08:00 96.7 61 18 129/81 (97) 95 11/09/20 07:37 77 11/09/20 04:00 99.0 79 20 128/57 (80) 94 11/09/20 04:00 74 11/09/20 00:00 98.6 76 19 148/57 (87) 95 11/09/20 00:00 74 11/08/20 21:00 Room Air 11/08/20 20:00 75 11/08/20 20:00 99.0 75 20 135/59 (84) 94 11/08/20 16:00 80 11/08/20 16:00 98.2 75 20 124/65 (84) 96 I&O Intake and Output 11/08/20 11/09/20 19:00 07:00 Intake Total 1510 ml 100 ml Output Total 4450 ml Balance -2940 ml 100 ml Intake Oral 210 ml 100 ml IV Total 1200 ml Other 100 ml Output Urine Total 450 ml Hemodialysis UF 4000 ml # Voids 2 1 # Bowel Movements 1 Dressing: saturated Cardiovascular: RSR Respiratory: decreased breath sounds Abdomen: soft, non-tender, present bowel sounds Extremities: edema, no tenderness, no cyanosis Laboratory Tests Test 11/09/20 09:40 White Blood Count 12.5 K/UL (4.8-10.8) H Red Blood Count 2.67 M/UL (4.20-5.40) L Hemoglobin 8.2 G/DL (12.0-16.0) L Hematocrit 23.9 % (37.0-47.0) L Mean Corpuscular Volume 90 FL (80-99) Mean Corpuscular Hemoglobin 30.8 PG (27.0-31.0) Mean Corpuscular Hemoglobin Concent 34.3 G/DL (32.0-36.0) Red Cell Distribution Width 16.6 % (11.6-14.8) H Platelet Count 396 K/UL (150-450) Mean Platelet Volume 6.3 FL (6.5-10.1) L Neutrophils (%) (Auto) 83.2 % (45.0-75.0) H Lymphocytes (%) (Auto) 6.6 % (20.0-45.0) L Monocytes (%) (Auto) 8.0 % (1.0-10.0) Eosinophils (%) (Auto) 1.3 % (0.0-3.0) Basophils (%) (Auto) 0.9 % (0.0-2.0) Sodium Level 143 MMOL/L (136-145) Potassium Level 4.0 MMOL/L (3.5-5.1) Chloride Level 104 MMOL/L (98-107) Carbon Dioxide Level 28 MMOL/L (21-32) Anion Gap 11 mmol/L (5-15) Blood Urea Nitrogen 37 mg/dL (7-18) H Creatinine 6.2 MG/DL (0.55-1.30) H Estimat Glomerular Filtration Rate 6.5 mL/min (>60) Glucose Level 178 MG/DL (74-106) H Calcium Level 8.0 MG/DL (8.5-10.1) L Phosphorus Level 5.4 MG/DL (2.5-4.9) H Magnesium Level 2.0 MG/DL (1.8-2.4) Total Bilirubin 0.4 MG/DL (0.2-1.0) Aspartate Amino Transf (AST/SGOT) 15 U/L (15-37) Alanine Aminotransferase (ALT/SGPT) 14 U/L (12-78) Alkaline Phosphatase 153 U/L (46-116) H Total Creatine Kinase 23 U/L (26-308) L Total Protein 6.5 G/DL (6.4-8.2) Albumin 2.3 G/DL (3.4-5.0) L Globulin 4.2 g/dL Albumin/Globulin Ratio 0.5 (1.0-2.7) L Plan Problems: (1) NSTEMI (non-ST elevated myocardial infarction) (2) Acute encephalopathy (3) Abdominal distension Assessment & Plan: 85F recently found down here by EMS hypoglycemic, abnormal labs, abd distention noted. patient with minimal abd complaints. mild distention noted on exam but likely baseline seems to have been losing weight recently. bmi 23. alb noted passing flatus and had BM this afternoon bm wnl no n/v/f/c tolerating oral intake hold on imaging for now okay for diet will monitor clinically with physical exam thank you exam improved overall improving no n/v/f/c tolerating diet (4) Hypoglycemia (5) ESRD (end stage renal disease) on dialysis Scout Martinez Nov 09, 2020 12:34
--- NOTE | 2020-11-09 12:56 | Pulmonology Progress Note ---
Subjective ROS Limited/Unobtainable: No Interval Events: s/p thoracentesis Constitutional: Reports: fatigue; Denies: fever HEENT: Repors: no symptoms Respiratory: Reports: no symptoms Cardiovascular: Reports: no symptoms Gastrointestinal/Abdominal: Denies: nausea, vomiting, diarrhea Psychiatric: Denies: depression Skin: Denies: rash Musculoskeletal: Denies: pain Allergies: Coded Allergies: No Known Allergies (Unverified , 11/02/20) Objective Last 24 Hour Vital Signs Date Time Temp Pulse Resp B/P (MAP) Pulse Ox O2 Delivery O2 Flow Rate FiO2 11/09/20 09:26 61 129/81 11/09/20 09:26 61 129/81 11/09/20 08:00 96.7 61 18 129/81 (97) 95 11/09/20 07:37 77 11/09/20 04:00 99.0 79 20 128/57 (80) 94 11/09/20 04:00 74 11/09/20 00:00 98.6 76 19 148/57 (87) 95 11/09/20 00:00 74 11/08/20 21:00 Room Air 11/08/20 20:00 75 11/08/20 20:00 99.0 75 20 135/59 (84) 94 11/08/20 16:00 80 11/08/20 16:00 98.2 75 20 124/65 (84) 96 Intake and Output 11/08/20 11/09/20 19:00 07:00 Intake Total 1510 ml 100 ml Output Total 4450 ml Balance -2940 ml 100 ml Intake Oral 210 ml 100 ml IV Total 1200 ml Other 100 ml Output Urine Total 450 ml Hemodialysis UF 4000 ml # Voids 2 1 # Bowel Movements 1 Objective 11/09 still loose BM 11/07 normal work of breathing on RA; still loose BM, C diff neg 11/06 saturating well on 2 lpm NC 11/05 saturating 92-95% on 2 lpm NC 11/04/2020 multiple loose stools today; colace and miralax held 11/03/2020 pt sitting in bed saturating well on RA General Appearance: WD/WN, no acute distress HEENT: normocephalic, atraumatic Respiratory: decreased breath sounds Cardiovascular: normal peripheral pulses, normal rate, regular rhythm Abdomen: soft, non tender Laboratory Tests 11/09/20 09:40: White Blood Count 12.5H, Red Blood Count 2.67L, Hemoglobin 8.2L, Hematocrit 23.9L, Mean Corpuscular Volume 90, Mean Corpuscular Hemoglobin 30.8, Mean Corpuscular Hemoglobin Concent 34.3, Red Cell Distribution Width 16.6H, Platelet Count 396, Mean Platelet Volume 6.3L, Neutrophils (%) (Auto) 83.2H, Lymphocytes (%) (Auto) 6.6L, Monocytes (%) (Auto) 8.0, Eosinophils (%) (Auto) 1.3, Basophils (%) (Auto) 0.9, Sodium Level 143, Potassium Level 4.0, Chloride Level 104, Carbon Dioxide Level 28, Anion Gap 11, Blood Urea Nitrogen 37H, Creatinine 6.2H, Estimat Glomerular Filtration Rate 6.5, Glucose Level 178H, Calcium Level 8.0L, Phosphorus Level 5.4H, Magnesium Level 2.0, Total Bilirubin 0.4, Aspartate Amino Transf (AST/SGOT) 15, Alanine Aminotransferase (ALT/SGPT) 14, Alkaline Phosphatase 153H, Total Creatine Kinase 23L, Total Protein 6.5, Albumin 2.3L, Globulin 4.2, Albumin/Globulin Ratio 0.5L Current Medications Medications (Trade) Dose Ordered Sig/Scooter Route PRN Reason Start Time Stop Time Status Last Admin Dose Admin Acetaminophen (Tylenol) 650 mg Q6H PRN ORAL For Pain 11/02/20 13:00 12/02/20 12:59 11/02/20 17:21 Amiodarone HCl (Cordarone) 200 mg DAILY ORAL 11/08/20 14:15 02/06/21 14:14 11/09/20 09:26 Amlodipine Besylate (Norvasc) 10 mg DAILY ORAL 11/06/20 09:00 12/06/20 08:59 11/09/20 09:26 Amoxicillin/ Clavulanate Potassium (Augmentin) 500 mg Q24HRS ORAL 11/08/20 21:00 11/15/20 20:59 11/08/20 20:33 Apixaban (Eliquis) 2.5 mg BID ORAL 11/08/20 18:00 02/06/21 17:59 11/09/20 09:27 Aspirin (ASA) 81 mg DAILY ORAL 11/03/20 09:00 12/18/20 08:59 12/22/20 09:26 Carvedilol (Coreg) 25 mg EVERY 12 HOURS ORAL 11/09/20 09:00 12/09/20 08:59 11/09/20 09:26 Dextrose (Dextrose 50%) 25 ml Q30M PRN IV Hypoglycemia 11/02/20 12:15 01/31/21 12:14 Dextrose (Dextrose 50%) 50 ml Q30M PRN IV Hypoglycemia 11/02/20 12:15 01/31/21 12:14 Diphenhydramine HCl (Benadryl) 25 mg Q6H PRN ORAL Itching/Pruritis 11/02/20 12:30 12/02/20 12:29 Epoetin Feng (Epoetin Feng(ESRD on dialysis)) 4,000 unit SUN- SUBQ 11/05/20 21:00 02/03/21 20:59 11/08/20 20:37 Famotidine (Pepcid) 20 mg DAILY ORAL 11/03/20 09:00 02/01/21 08:59 11/09/20 09:26 Hydralazine HCl (Apresoline) 10 mg Q4H PRN IV For SBP >160 11/02/20 13:00 01/31/21 12:59 Insulin Aspart (NovoLOG) BEFORE MEALS AND HS SUBQ 11/01/20 11:30 01/30/21 11:29 11/08/20 20:34 Polyethylene Glycol (Miralax) 17 gm HSPRN PRN ORAL Constipation 11/02/20 21:00 12/02/20 20:59 Sevelamer Carbonate (Renvela) 800 mg THREE TIMES A DAY ORAL 11/08/20 13:00 02/06/21 12:59 11/09/20 12:23 Sitagliptin Phosphate (Januvia) 25 mg ACBREAKFAST ORAL 11/06/20 10:30 12/06/20 10:29 11/09/20 06:40 Assessment/Plan Assessment/Plan 1. Large right pleural effusion. - s/p thoracentesis; 1.4L removed; follow-up CXR better - pleural fluid appears exudative however could be misleading due to dialysis status - CXR 11/06 slight increase in moderate right pleural effusion 2. ESRD, on dialysis. 3. Hx of hypoglycemia. 4. Diabetes mellitus. - on glucose-lowering agents per Dr. Barron 5. Acute hypoxic respiratory failure, secondary to #1, #2 - now saturating well on RA - provide supplemental oxygen as needed 6. Acute diarrhea - C diff neg DISCUSSION: s/p thoracentesis Recent CXR shows slight increase in moderate right pleural effusion Discussed with primary MD and ID Agree with dc planning with Abx The care for this patient was discussed with my supervising physician Time spent for this case was approximately 31 minutes Baldev Wright Nov 09, 2020 12:56 Ty Mauro MD Nov 09, 2020 15:03
[2020-11-09] MEDS ORDERED: AMOX TR-K CLV1 EAC1 ORAL (13:21)
[2020-11-09] MEDS ORDERED: JANUVIA25 MG ORAL (13:21)
--- NOTE | 2020-11-09 13:26 | Discharge Instructions ---
Discharge Instructions Discharge Instructions Follow up with: primary care physician, substation operator transforming, kidney doctor Call MD/Return to Hospital if: symptoms worsen or fail to improve Services at Discharge: home health services Diet: renal diabetic Resume Normal Activity?: Yes Activity: resume normal activities Special Instructions Take Augmentin (amoxicillin-clavulanate) antibiotic medicine for 3 more days after going home. Have a blood test complete blood count (CBC) checked with your physician within 7 days. Follow up with your primary care doctor, your substation operator transforming, and your nephrologi st (kidney doctor) as soon as possible. For Congestive Heart Failure Reminder Report to your physician any weight gain of 5 pounds or more in one week. Eliud Luciano M.D. Nov 09, 2020 13:26
--- NOTE | 2020-11-09 13:28 | Discharge Summary ---
Discharge Summary Hospital Course Date of Admission Nov 01, 2020 at 04:05 Date of Discharge Admitting Diagnosis hypoglycemia, ESRD HPI Ida Zhang is a 85 year old female who was admitted on Nov 01, 2020 at 04:05 for Hypoglycemia/Enstaged Renal Disease Consultations cardiology, pulmonology, ID, surgery, endocrinology, nephrology Discharge Medications New Medications: Amoxicillin/Potassium Clav 500-125 Mg Tab* (Amox Tr-K Clv 500-125 Mg Tab*) 1 Each Tablet 500 MG ORAL Q24HRS for 3 Days, #3 TAB Sitagliptin* (Januvia*) 25 Mg Tablet 25 MG ORAL ACBREAKFAST for 30 Days, #30 TAB 1 Refill Continued Medications: Amiodarone Hcl* (Cordarone*) 200 Mg Tablet 200 MG ORAL DAILY for ANTIARRYTHMIC, TAB Apixaban (Eliquis*) 2.5 Mg Tablet 2.5 MG ORAL DAILY for Anticoagulant, TAB Carvedilol* (Carvedilol*) 25 Mg Tablet 25 MG ORAL DAILY for HTN, TAB Lisinopril* (Prinivil*) 10 Mg Tablet 10 MG ORAL DAILY for HTN, TAB Nifedipine Xl* (Procardia Xl*) 90 Mg Tab.er.24 90 MG ORAL DAILY for HTN/ANGINA, TAB PT TAKES THIS OR PROCARDIA XL 60MG TAB Rosuvastatin Calcium* (Crestor*) 10 Mg Tablet 10 MG ORAL DAILY for Dyslipidemia, TAB Sevelamer Carbonate* (Renvela*) 0.8 Gm Powd.pack 800 MG ORAL THREE TIMES A DAY for HYPERPHOSPHATEMIA, PACK Discontinued Medications: Hydralazine Hcl* (Hydralazine Hcl*) 100 Mg Tablet 100 MG ORAL EVERY 8 HOURS for HTN, TAB Isosorbide Mononitrate (Isosorbide Mononitrate Er) 60 Mg Tab.er.24h 60 MG PO for ANGINA, TAB Linagliptin (Tradjenta) 5 Mg Tablet 5 MG PO DAILY for DIABETES, TAB Nifedipine (Procardia Xl) 60 Mg Tab.er.24 60 MG ORAL DAILY for HTN/ANGINA, TAB PT TAKES THIS OR PROCRADIA XL 90MG ER TAB Discharge Condition Upon Discharge: improving Discharge Vital Signs Last Vital Signs Date Time Temp Pulse Resp B/P (MAP) Pulse Ox O2 Delivery O2 Flow Rate FiO2 11/09/20 11:58 71 11/09/20 09:26 129/81 11/09/20 08:00 96.7 18 95 11/08/20 21:00 Room Air 11/08/20 09:00 2.0 Discharge Disposition Patient was discharged to home with home health Discharge Diagnoses: (1) NSTEMI (non-ST elevated myocardial infarction) (2) Acute encephalopathy (3) Hypoglycemia (4) ESRD (end stage renal disease) on dialysis Discharge Instructions Discharge Instructions Follow up with: primary care physician, hod carrier, kidney doctor Call MD/Return to Hospital if: symptoms worsen or fail to improve Services Upon Discharge: home health services Activity: resume normal activities Eliud Luciano M.D. Nov 09, 2020 13:28
--- NOTE | 2020-11-09 13:38 | Diagnostic Imaging Report ---
Indication: Shortness of breath Technique: One view of the chest Comparison: 11/06/2020 Findings: There are bilateral large pleural effusions, probably unchanged. Pulmonary venous congestion appears similar to the previous exam. The heart borders are obscured, heart probably enlarged Impression: Unchanged, over 3 days, findings as above.
[2020-11-09 16:00] VITALS: BP 140/88
--- NOTE | 2020-11-09 17:01 | NUR ---
NURSE NOTES: pt has discharge order, all D/C assessments and instructions done and pt verbally confirmed to understand all, pt is aware about [facility] and ph, and aware Take Augmentin (amoxicillin-clavulanate) antibiotic medicine for 3 more days after going home. Have a blood test complete blood count (CBC) checked with pt's physician within 7 days. Follow up with pt's primary care doctor, your fastener sewing machine operator, and your blow down operator (kidney doctor) as soon as possible. and pt is aware Report to physician any weight gain of 5 pounds or more in one week. pt is stable, V/S stable, all belongings are with pt, iv access D/C, is aware about WBC 12.5 HB 8.2, NNO.MRSA nares done and the swab sent to lab. Pt left hospital with accompany sister in law Radha.
--- NOTE | 2020-11-09 22:14 | Neurology Progress Note ---
Interim History Interim History ROS Limited/Unobtainable: No Interim History ok to dc, atb aseline Objective Physical Exam Last Vital Signs Date Time Temp Pulse Resp B/P (MAP) Pulse Ox O2 Delivery O2 Flow Rate FiO2 11/09/20 16:00 96.7 68 20 140/88 (105) 96 11/09/20 09:00 Room Air 11/08/20 09:00 2.0 Laboratory Tests Test 11/09/20 09:40 White Blood Count 12.5 K/UL (4.8-10.8) H Red Blood Count 2.67 M/UL (4.20-5.40) L Hemoglobin 8.2 G/DL (12.0-16.0) L Hematocrit 23.9 % (37.0-47.0) L Mean Corpuscular Volume 90 FL (80-99) Mean Corpuscular Hemoglobin 30.8 PG (27.0-31.0) Mean Corpuscular Hemoglobin Concent 34.3 G/DL (32.0-36.0) Red Cell Distribution Width 16.6 % (11.6-14.8) H Platelet Count 396 K/UL (150-450) Mean Platelet Volume 6.3 FL (6.5-10.1) L Neutrophils (%) (Auto) 83.2 % (45.0-75.0) H Lymphocytes (%) (Auto) 6.6 % (20.0-45.0) L Monocytes (%) (Auto) 8.0 % (1.0-10.0) Eosinophils (%) (Auto) 1.3 % (0.0-3.0) Basophils (%) (Auto) 0.9 % (0.0-2.0) Sodium Level 143 MMOL/L (136-145) Potassium Level 4.0 MMOL/L (3.5-5.1) Chloride Level 104 MMOL/L (98-107) Carbon Dioxide Level 28 MMOL/L (21-32) Anion Gap 11 mmol/L (5-15) Blood Urea Nitrogen 37 mg/dL (7-18) H Creatinine 6.2 MG/DL (0.55-1.30) H Estimat Glomerular Filtration Rate 6.5 mL/min (>60) Glucose Level 178 MG/DL (74-106) H Calcium Level 8.0 MG/DL (8.5-10.1) L Phosphorus Level 5.4 MG/DL (2.5-4.9) H Magnesium Level 2.0 MG/DL (1.8-2.4) Total Bilirubin 0.4 MG/DL (0.2-1.0) Aspartate Amino Transf (AST/SGOT) 15 U/L (15-37) Alanine Aminotransferase (ALT/SGPT) 14 U/L (12-78) Alkaline Phosphatase 153 U/L (46-116) H Total Creatine Kinase 23 U/L (26-308) L Total Protein 6.5 G/DL (6.4-8.2) Albumin 2.3 G/DL (3.4-5.0) L Globulin 4.2 g/dL Albumin/Globulin Ratio 0.5 (1.0-2.7) L Neurologic Exam Mental Status: awake Objective ao x 2 antigravity all 4 nc at neck supple abd soft resp no distress Impression/Recommendations Problems: (1) NSTEMI (non-ST elevated myocardial infarction) (2) Acute encephalopathy (3) Abdominal distension (4) Hypoglycemia (5) ESRD (end stage renal disease) on dialysis Status: stable Diagnostic Impression improved metabolic encephalopathy, less likely vascular afib cont eliquis cont asa hold on mri for now cont delirium precautions medical support pt ot has stairs at home Nathaniel Doyle MD Nov 09, 2020 22:14
== END 2020-11-09 16:59 | disposition home health service (06) | DRG 637 ==
LOC: EDBD 03:42 → EMR 03:55 → 2E 04:05 → EDBEDREQSVC 04:49 → EDBEDREQ 04:49 → EDBEDREQTM 04:49 → EDBEDREQSVC 17:23 → EDBEDREQ 17:23 → 2E 11-02 08:43 → UNDOADMIN 11-02 08:43
PROC: 30233N1 Transfusion of Nonautologous Red Blood Cells into Peripheral Vein, Percutaneous Approach (ICD-10-PCS; principal; 2020-11-01)
PROC: 0W993ZZ Drainage of Right Pleural Cavity, Percutaneous Approach (ICD-10-PCS; principal; 2020-11-01)
PROC: 5A1D70Z Performance of Urinary Filtration, Intermittent, Less than 6 Hours Per Day (ICD-10-PCS; 2020-11-08)
DX: E11.649 Type 2 diabetes mellitus with hypoglycemia without coma (principal); J69.0 Pneumonitis due to inhalation of food and vomit; I21.A1 Myocardial infarction type 2; G93.41 Metabolic encephalopathy; J96.01 Acute respiratory failure with hypoxia; N39.0 Urinary tract infection, site not specified; I12.0 Hypertensive chronic kidney disease with stage 5 chronic kidney disease or end stage renal disease; J91.8 Pleural effusion in other conditions classified elsewhere; N18.6 End stage renal disease; E11.22 Type 2 diabetes mellitus with diabetic chronic kidney disease; N18.9 Chronic kidney disease, unspecified; Z99.2 Dependence on renal dialysis; I45.10 Unspecified right bundle-branch block; Z79.4 Long term (current) use of insulin; T68.XXXA Hypothermia, initial encounter; E78.5 Hyperlipidemia, unspecified; R19.7 Diarrhea, unspecified
CPT/HCPCS: 36415; 70450; 71045; 71046; 76942; 80048; 80053; 80076; 81003; 82306; 82550; 82728; 82962; 82977; 83036; 83540; 83550; 83605; 83615; 83735; 83880; 83970; 84100; 84443; 84484; 85007; 85025; 85610; 85730; 86706; 86850; 86900; 86901; 86920; 87040; 87045; 87081; 87086; 87205; 87324; 88104; 89051; 93005; 93306; 96365; 99285; J1815